=== PATIENT | male | born 1960 | race Caucasian/White ===

== ENCOUNTER 2016-08-25 21:40 | Observation (INO) | payer MEDICAID ==
[~2016-08-25] VITALS: Ht 167.6 cm; Wt 85.5 kg
[~2016-08-25 21:40] MED LIST: GLIP5 PO; LANTUSP SQ; NOVO7030P2 SQ; RANI150 PO
[2016-08-25 21:55] VITALS: BP 129/73; PULSE 74; RESP 18; TEMP 98.7; O2SAT 100
[2016-08-25] MEDS ORDERED: NOVOLOGP2 SQ (22:20)
[2016-08-25] MEDS ORDERED: PREV15CA15 PO (22:20)
[2016-08-25] MEDS ORDERED: ASPI-383 PO (22:20)
[2016-08-25] MEDS ORDERED: LANTUS2P SQ (22:20)
[2016-08-25] MEDS ORDERED: VENTAER INH (22:20)
[2016-08-25] MEDS ORDERED: DIAZ2 PO (22:20)
[2016-08-25] MEDS ORDERED: OXYC1TAB13 PO (22:20)
[2016-08-25] MEDS ORDERED: LIDOCAINE HCL 1% PF 30 ML VIAL INFIL ONE (22:45)
[2016-08-25] MEDS ORDERED: CLINDAMYCIN INJ 900 MG in SODIUM CHLORIDE 0.9% INJ 100 ML IV ONE (22:45)
--- NOTE | 2016-08-25 23:10 | RADRPT ---
EXAM DATE/TIME: 08/25/2016 22:47 [place] COMPARISON: No previous studies available for comparison. INDICATIONS : Left elbow pain from unknown injury. Possible infection. MEDICAL HISTORY : None. SURGICAL HISTORY : None. ENCOUNTER: Initial ACUITY: 1 day PAIN SCORE: 7/10 LOCATION: Left posterior elbow FINDINGS: No fracture or subluxation is seen of the left elbow. There is marked soft tissue swelling posteriorl y overlying male [place] on. No acute bone destruction demonstrated. No radiopaque foreign body seen.CO NCLUSION: Posterior soft tissue swelling, presumably olecranon bursitis. No acute bony abnormality. Aiden Pierre MD on August 25, 2016 at 23:08 Board Certified Radiologist. This report was verified electronically.
[2016-08-25 23:11] LABS: AUTOMATED NEUTROPHIL # 5.6 TH/MM3 (1.8-7.7); BASOPHIL # 0.1 TH/MM3 (0-0.2); BASOPHIL % 0.7 % (0.0-2.0); EOSINOPHIL # 0.1 TH/MM3 (0-0.4); EOSINOPHIL % 1.4 % (0.0-4.0); HEMATOCRIT 39.5 % (39.0-51.0); HEMO FLAGS DIFF FINAL; LYMPHOCYTE # 1.6 TH/MM3 (1.0-4.8); MEAN CELL VOLUME 98.2 FL (80.0-100.0); MEAN CORPUSCULAR HEMOGLOBIN 33.8 PG (27.0-34.0); MEAN CORPUSCULAR HGB CONC 34.5 % (32.0-36.0); MONO % 9.8 % (0.0-8.0); NEUT % 68.1 % (16.0-70.0); PLATELET COUNT 171 TH/MM3 (150-450); RED BLOOD COUNT 4.03 MIL/MM3 (4.50-5.90); RED CELL DISTRIBUTION WIDTH 11.9 % (11.6-17.2); WHITE BLOOD COUNT 8.2 TH/MM3 (4.0-11.0)
[2016-08-25 23:17] LABS: POTASSIUM 3.8 MEQ/L (3.5-5.1)
[2016-08-25 23:20] LABS: BICARBONATE 29.7 MEQ/L (21.0-32.0)
[2016-08-25 23:36] VITALS: BP 117/62; PULSE 72; RESP 16; O2SAT 100
[2016-08-26] VITALS (8 sets, daily range): BP systolic 107–130; BP diastolic 72–90; PULSE 54–72; RESP 16–20; TEMP 97.3–98.8; O2SAT 96–100
[2016-08-26] MEDS ORDERED: SODIUM CHLORIDE 0.9% FLUSH 10 ML FLUSH IVF PRN
[2016-08-26] MEDS ORDERED: VANCOMYCIN INJ 1,000 MG in SODIUM CHLOR 0.9% 250 ML INJ 250 ML IV ONE ×2
[2016-08-26] MEDS ORDERED: MAGNESIUM HYDROXIDE SUSP 30 ML CUP PO PRN (00:15)
[2016-08-26] MEDS ORDERED: SODIUM CHLORIDE 0.9% FLUSH 10 ML FLUSH IV FLUSH PRN (00:15)
[2016-08-26] MEDS ORDERED: ACETAMINOPHEN 325 MG TAB PO PRN (00:15)
[2016-08-26] MEDS ORDERED: NALOXONE HCL 0.4 MG/ML AMP IV PRN (00:15)
[2016-08-26] MEDS ORDERED: GLUCAGON 1 MG/ML VIAL OTHER PRN (00:15)
[2016-08-26] MEDS ORDERED: DEXTROSE 50% IN WATER 50 ML VIAL(D50) IV PRN (00:15)
[2016-08-26] MEDS ORDERED: BISACODYL 10 MG SUPP RECTAL PRN (00:15)
[2016-08-26] MEDS ORDERED: ONDANSETRON HCL 4 MG/2 ML VIAL IVP PRN (00:15)
[2016-08-26] MEDS: ENOXAPARIN SODIUM 40 MG/0.4 ML SYRINGE SQ SCH ×2 (01:46→23:19)
[2016-08-26] MEDS: ACETAMINOPHEN/HYDROcodone 325 MG/5 MG TAB PO PRN ×2 (03:00→15:19)
[2016-08-26] MEDS: INSULIN ASPART SUPPLEMENTAL SCALE SQ SCH ×4 (06:38→21:00)
[2016-08-26] MEDS: DOCUSATE SODIUM 50 MG/SENNA 8.6 MG TAB PO SCH ×2 (09:00→20:57)
[2016-08-26] MEDS ORDERED: SODIUM CHLORIDE 0.9% FLUSH 10 ML FLUSH IV FLUSH SCH (09:00)
[2016-08-26] MEDS: CLINDAMYCIN INJ 600 MG in SODIUM CHLORIDE 0.9% INJ 100 ML IV SCH ×3 (10:05→23:19)
[2016-08-26] MEDS: SODIUM CHLORIDE 0.9% FLUSH 10 ML FLUSH IV FLUSH SCH ×2 (10:05→21:07)
--- NOTE | 2016-08-26 11:57 | HHI.HP ---
[facility] [place] [facility] Primary Care Physician Non-Staff Admission Diagnosis L olecranon cellulitis; DM Diagnoses: (1) Cellulitis of left elbow Diagnosis: Principal Chief Complaint: Left elbow draining Travel History International Travel<30 Days: No Contact w/Intl Traveler <30 Da: No Traveled to Known Affected Are: No History of Present Illness Written by Arturo Hancock, acting as scribe for Dr. Chris on 08/26/16 at 11:48. 56 year-old male with known history of diabetes, coronary artery disease, COPD who presented to the hospital at the request of his sister because of left elbow redness and pain. Patient states that he don't know if he got poked with some thin, got bit by an insect bite on Tuesday he noticed his left elbow being edematous, red. He went to his primary medical doctor's office Dr. Hurley a [place] in which was Keflex. The patient only took 2 days with a Keflex. Patient then was able to express some fluid out of the elbow yesterday and because of those reasons his sister forced him to come to the emergency department for evaluation. The patient had workup done emergency department and x-ray indicated posterior soft tissue swelling presumably olecranon bursitis. Is recommended by the ER physician the patient be observed in the hospital for further evaluation management. Upon seeing the patient today, he indicated that he believed that he came to the hospital too soon because he did not feel that he was on antibiotics enough in order to do any good. He is feeling much better this time and wants to go home. He indicates his swelling has significantly improved. Indicating only had one episode of fever back on Tuesday, has not had any recurrent fever and has not been febrile since being in the hospital. . Review of Systems Constitutional: COMPLAINS OF: Fever, DENIES: Diaphoretic episodes, Fatigue, Weight gain, Weight loss, Chills, Dizziness, Change in appetite, Night Sweats Eyes: DENIES: Blurred vision, Diplopia, Eye inflammation, Eye pain, Vision loss , Double Vision Ears, nose, mouth, throat: DENIES: Hearing loss, Nasal discharge, Throat pain, Ear Pain, Running Nose, Sinus Pain Respiratory: DENIES: Apneas, Cough, Snoring, Wheezing, Hemoptysis, Sputum production, Shortness of breath Cardiovascular: DENIES: Chest pain, Palpitations, Syncope, Dyspnea on Exertion , Lower Extremity Edema, Orthopnea Gastrointestinal: DENIES: Abdominal pain, Black stools, Bloody stools, Constipation, Diarrhea, Nausea, Vomiting, Difficulty Swallowing, Anorexia Neurologic: DENIES: Abnormal gait, Headache, Localized weakness, Paresthesias, Seizures, Speech Problems, Tremor, Poor Balance Past Family Social History Past Medical History Diabetes Coronary artery disease Chronic affective pulmonary disease Chronic smoker Chronic back pain History of myocardial infarction Past Surgical History Umbilical hernia repair Cardiac catheterization with stenting 2 Reported Medications Reported Meds & Active Scripts Active Reported Prevacid (Lansoprazole) 15 Mg Capdr 15 Mg PO DAILY Bufferin 325 mg Tablet (Aspirin/Calcium Carbonate/Mag) 325 Mg Tablet 1 Tab PO DAILY Valium (Diazepam) 2 Mg Tab 2 Mg PO HS PRN Roxicodone (Oxycodone HCl) 5 Mg Tab 5 Mg PO Q4H PRN Ventolin Hfa 18 GM Inh (Albuterol Sulfate) 90 Mcg/Act Aer 2 Puff INH Q4-6H PRN Lantus Inj (Insulin Glargine) 1,000 Unit/10 Ml Vial 10 Units SQ HS Novolog Inj (Insulin Aspart) 1,000 Unit/10 Ml Vial 0 SQ DIRECTED Sliding Scale as directed. 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 Social History Patient continues smoke a pack a cigarettes a day since he was 12 years old. Denies any alcohol or illicit drugs Physical Exam Vital Signs Vital Signs Date Time Temp Pulse Resp B/P Pulse Ox O2 Delivery O2 Flow Rate FiO2 08/26/16 08:00 97.3 64 20 111/75 100 08/26/16 03:00 98.5 67 16 130/90 100 08/26/16 02:55 98.3 72 16 130/90 100 08/26/16 02:02 100 21 08/26/16 00:40 69 16 125/72 100 Room Air 08/26/16 00:40 71 16 08/25/16 23:36 72 16 117/62 100 Room Air 08/25/16 21:55 98.7 74 18 129/73 100 Physical Exam GENERAL: Well-developed, well-nourished, in no acute distress. alert and orientated HEENT: Head is normocephalic without any lesions or masses noted. Facial features are symmetric. Eyes: Pupils equal round reactive to light. Extraocular muscles are intact. Conjunctivae were clear. Oropharyngeal: Pharynx without any erythema edema. Tongue is midline without deviation. Buccal mucosa is moist without any masses or lesions NECK: Supple without any masses. Trachea midline no deviation. No JVD, no bruits are appreciated CARDIAC: Regular rhythm, regular rate. S1/S2 are heard. No murmurs gallops or rubs. LUNGS: Clear to auscultation bilaterally. No wheeze, rhonchi or rales. No use of accessory muscles on inspiration or expiration. ABDOMEN: Soft, nontender. Nondistended. Bowel sounds heard in all 4 quadrants. No organomegaly or masses. Negative rebound, negative guarding EXTREMITIES: No edema, pulses are equal bilaterally. No cyanosis or clubbing NEUROLOGY: Mood and affect appear appropriate. Cranial nerves II through XII grossly intact. Muscle strength 5/5 in upper and lower extremities bilaterally. Deep tendon reflexes are 2+ in upper and lower extremities bilaterally. LEFT ELBOW: Patient does have localized erythema noted around the olecranon bursa. There is active drainage at this time. No lymphadenopathy has been appreciated Laboratory Laboratory Tests Test 08/25/16 08/25/16 23:00 23:46 White Blood Count 8.2 Red Blood Count 4.03 Hemoglobin 13.6 Hematocrit 39.5 Mean Corpuscular Volume 98.2 Mean Corpuscular Hemoglobin 33.8 Mean Corpuscular Hemoglobin 34.5 Concent Red Cell Distribution Width 11.9 Platelet Count 171 Mean Platelet Volume 8.5 Neutrophils (%) (Auto) 68.1 Lymphocytes (%) (Auto) 20.0 Monocytes (%) (Auto) 9.8 Eosinophils (%) (Auto) 1.4 Basophils (%) (Auto) 0.7 Neutrophils # (Auto) 5.6 Lymphocytes # (Auto) 1.6 Monocytes # (Auto) 0.8 Eosinophils # (Auto) 0.1 Basophils # (Auto) 0.1 CBC Comment DIFF FINAL Differential Comment Sodium Level 134 Potassium Level 3.8 Chloride Level 97 Carbon Dioxide Level 29.7 Anion Gap 7 Blood Urea Nitrogen 17 Creatinine 0.78 Estimat Glomerular Filtration 104 Rate Random Glucose 303 Calcium Level 8.7 Lactic Acid Level 1.5 Date/Time Procedure Status Source Growth 08/25/16 23:15 Gram Stain - Final Resulted Wound Elbow 08/25/16 23:15 Wound Culture Resulted Wound Elbow Pending 08/25/16 23:05 Aerobic Blood Culture - Preliminary Resulted Blood Peripheral NO GROWTH IN 1 DAY 08/25/16 23:05 Anaerobic Blood Culture - Preliminary Resulted Blood Peripheral NO GROWTH IN 1 DAY Result Diagram: 08/25/16 2300 08/25/16 2300 Imaging Last Impressions Elbow X-Ray 08/25/16 0000 Signed Impressions: Service Date/Time: Tuesday, August 25, 2016 22:47 - CONCLUSION: Posterior soft tissue swelling, presumably olecranon bursitis. No acute bony abnormality. Aiden Pierre MD Assessment and Plan Assessment and Plan Left elbow cellulitis, possible olecranon bursitis, improved X-ray indicates soft tissue swelling possible olecranon bursitis Patient started on empirical antibiotics include vancomycin and clindamycin [place], morphine for pain --Consult Orthopedic for evaluation Diabetes Accu-Cheks with sliding scale insulin DVT prevention Lovenox This note was transcribed by shy Hancock. I, Dr. Amilcar North personally performed the history, physical exam, and medical decision making; and confirmed the accuracy of the information in the transcribed note. Authenticated by Dr. Amilcar North on 08/26/16 at 12:54. Code Status Full code Arturo Hancock Aug 26, 2016 11:57 Amilcar Pulido MD Aug 26, 2016 12:54 confirmed the accuracy of the information in the transcribed note. Authenticated by Dr. Amilcar North on 08/26/16 at 12:54. Code Status Full code Arturo Hancock Aug 26, 2016 11:57 Amilcar Pulido MD Aug 26, 2016 12:54
[2016-08-26] MEDS ORDERED: CLIN1CAP5 PO (12:37)
--- NOTE | 2016-08-26 12:41 | HHI.DCPOC ---
Discharge Care Plan Diagnosis: (1) Cellulitis of left elbow Goals to Promote Your Health * To prevent worsening of your condition and complications * To maintain your health at the optimal level Directions to Meet Your Goals Take your medications as prescribed Follow your dietary instruction Follow activity as directed Keep your appointments as scheduled Take your immunizations and boosters as scheduled If your symptoms worsen call your PCP, if no PCP go to Urgent Care Center or Emergency Room Smoking is Dangerous to Your Health. Avoid second hand smoke Call the 24-hour hour crisis hotline for domestic abuse at Arturo Hancock Aug 26, 2016 12:41
[2016-08-26] MEDS: MORPHINE SULFATE 4 MG/ML INJ IV PUSH PRN (22:01)
[2016-08-27] VITALS: BP 117/82; PULSE 60; RESP 18; TEMP 98.3; O2SAT 98
[2016-08-27] MEDS: MORPHINE SULFATE 4 MG/ML INJ IV PUSH PRN ×3 (02:15→19:53)
[2016-08-27 06:49] LABS: AUTOMATED NEUTROPHIL # 2.7 TH/MM3 (1.8-7.7); BASOPHIL # 0.1 TH/MM3 (0-0.2); BASOPHIL % 1.4 % (0.0-2.0); EOSINOPHIL # 0.2 TH/MM3 (0-0.4); EOSINOPHIL % 3.4 % (0.0-4.0); HEMATOCRIT 38.3 % (39.0-51.0); HEMO FLAGS DIFF FINAL; LYMPH % 33.9 % (9.0-44.0); LYMPHOCYTE # 1.8 TH/MM3 (1.0-4.8); MEAN CELL VOLUME 100.1 FL (80.0-100.0); MEAN CORPUSCULAR HEMOGLOBIN 34.5 PG (27.0-34.0); MEAN CORPUSCULAR HGB CONC 34.5 % (32.0-36.0); MONO % 10.5 % (0.0-8.0); NEUT % 50.8 % (16.0-70.0); PLATELET COUNT 162 TH/MM3 (150-450); RED BLOOD COUNT 3.83 MIL/MM3 (4.50-5.90); RED CELL DISTRIBUTION WIDTH 11.9 % (11.6-17.2); WHITE BLOOD COUNT 5.4 TH/MM3 (4.0-11.0)
[2016-08-27 06:56] LABS: POTASSIUM 4.1 MEQ/L (3.5-5.1)
[2016-08-27] MEDS: INSULIN ASPART SUPPLEMENTAL SCALE SQ SCH ×4 (07:00→21:00)
[2016-08-27 07:05] LABS: BICARBONATE 27.7 MEQ/L (21.0-32.0)
[2016-08-27 08:00] VITALS: BP 125/76; PULSE 54; RESP 18; TEMP 97.2; O2SAT 99
--- NOTE | 2016-08-27 08:16 | MB ---
cc: DEWEY BUCIO DATE OF CONSULTATION: 08/25/2016 DATE OF : 1960 CHIEF COMPLAINT Left elbow draining wound. HISTORY OF PRESENT ILLNESS This is a 56-year-old male who has a known history of diabetes, coronary artery disease, chronic obstructive pulmonary disease, hepatitis B, and hepatitis C who presented to the hospital today for redness and pain about the left elbow. The patient states he began having some pain and redness to the elbow approximately five or six days ago. The patient does [employer] work and has been outside recently where he thinks he could have been poked with a palm frond versus an insect bite. The patient did see his primary care physician and was placed on Keflex. The patient took approximately two days of this antibiotic and decided to have it addressed in the hospital due to the redness and drainage. The patient reports only having fever for one day and states the T-max was 102. The patient states he then became afebrile. The patient currently denies fever, chills, nausea, and vomiting. REVIEW OF SYSTEMS Negative x12 except for what is stated in the HPI. PAST MEDICAL HISTORY 1. Diabetes. 2. Coronary artery disease. 3. Chronic obstructive pulmonary disease. 4. Chronic back pain. 5. History of myocardial infarction. 6. Hepatitis B. 7. Hepatitis C. 8. Hiatal hernia. PAST SURGICAL HISTORY 1. Cataract surgery on both eyes. 2. Two cardiac stents. 3. Umbilical hernia repair. 4. Left ankle surgery. SOCIAL HISTORY Smoking one pack a day. The patient denies alcohol or illicit drug use. ACTIVE MEDICATIONS See nurse's notes. ALLERGIES SEROQUEL. PHYSICAL EXAMINATION VITAL SIGNS ARE FOLLOWS: Temperature 98.2, pulse 60, respirations 20, blood pressure 107/72, and pulse oximetry 99% on room air. GENERAL: The patient is a well-developed and well-nourished male in no acute distress. HEAD, EYES, EARS, NOSE AND THROAT: Head is normocephalic and atraumatic. Facial features are symmetric. Eyes are PERRLA with extraocular movements intact. Conjunctivae are clear. NECK: Neck is supple with midline trachea. CARDIAC: The patient has regular, rate and rhythm. The patient has 2+ radial and pedal pulses bilaterally. There is no lymphadenopathy about the bilateral upper and lower extremities. LUNGS: The patient has no use of accessory muscles with nonlabored breathing. The patient has symmetric chest wall rise. ABDOMEN: Abdomen is soft, nontender and nondistended. EXTREMITIES: The patient's bilateral lower extremities and right upper extremity show no deficits in range of motion and no tenderness to palpation. The patient does have some mildly restrictive range of motion of the left elbow. The patient has moderate erythema about the olecranon bursa with mild serosanguineous drainage. There is some mild soft tissue swelling about the elbow and forearm. NEUROLOGIC: The patient is alert and oriented x3 and cranial nerves are intact. LABORATORY DATA Labs taken on 08/25/2016: White blood cells are 8.2, hemoglobin is 13.6, hematocrit is 39.5, platelets are 171. Creatinine is 0.78, glucose is 303. The patient has a lactic acid of 1.5. The patient's wound culture taken on 08/25/2016 does show gram-positive cocci. IMAGING STUDIES X-rays of the left elbow AP and lateral views taken on 08/25/2016 reads as: Posterior soft tissue swelling presumably olecranon bursitis with no acute bony abnormality. I did review the above images and agree with the radiologist's interpretation. I do not see any bone destruction which would indicate osteomyelitis. I also do not see any findings of gas in the soft tissues which would be concerning. IMPRESSION Left elbow infected olecranon bursitis. MEDICAL DECISION-MAKING Based on the patient's current clinical course and physical exam, I do feel that this is something that can be managed outpatient. I have discussed this situation with Dr. Bucio and he has agreed to have the patient be placed on antibiotics and to have the patient followup in the office as an outpatient in one week. Depending upon the patient's response to his antibiotics, we will determine the plan of care moving forward. The patient does understand there is potential for a future surgery which would include irrigation and debridement of the elbow. My recommendation is for Infectious Disease to evaluate the patient and place the patient on appropriate antibiotics for home. In the meantime, the patient should keep the elbow clean and dry with daily dressing changes. The patient can use ice for swelling. The patient is currently on chronic pain medication for his chronic back pain which should also treat his current left elbow symptoms. I have reviewed the above impression and plan of care with Dr. Bucio and he agrees with this documentation. DICTATED BY: Carlton Swartz, NARCISO MD GEOFF Peter/RADHA /4:41 PM /8:18 AM
[2016-08-27] MEDS: DOCUSATE SODIUM 50 MG/SENNA 8.6 MG TAB PO SCH ×2 (09:00→19:53)
[2016-08-27] MEDS: SODIUM CHLORIDE 0.9% FLUSH 10 ML FLUSH IV FLUSH SCH ×2 (09:15→19:53)
[2016-08-27] MEDS: CLINDAMYCIN INJ 600 MG in SODIUM CHLORIDE 0.9% INJ 100 ML IV SCH (09:15)
[2016-08-27] MEDS: ACETAMINOPHEN/HYDROcodone 325 MG/5 MG TAB PO PRN ×2 (09:27→16:50)
[2016-08-27 12:00] VITALS: BP 115/73; PULSE 61; RESP 18; TEMP 97.6; O2SAT 98
--- NOTE | 2016-08-27 12:27 | HHI.PR ---
Subjective Remarks c/o some pain in left elbow states less tender and redness improving denies fevers/chills Sugars are very elevated denies cp/sob Objective Vitals Vital Signs Date Time Temp Pulse Resp B/P Pulse Ox O2 Delivery O2 Flow Rate FiO2 08/27/16 08:00 97.2 54 18 125/76 99 08/27/16 00:00 98.3 60 18 117/82 98 08/26/16 20:00 98.8 60 18 114/76 96 08/26/16 16:37 18 08/26/16 16:00 98.2 60 20 107/72 99 I/O 08/26/16 08/26/16 08/26/16 08/27/16 08/27/16 08/27/16 07:00 15:00 23:00 07:00 15:00 23:00 Intake Total 480 ml 690 ml 240 ml 240 ml Output Total 350 ml 400 ml Balance 130 ml 690 ml -160 ml 240 ml Intake Oral 480 ml 690 ml 240 ml 240 ml Output Urine Total 350 ml 400 ml # Voids 1 4 4 3 # Bowel Movements 0 1 0 2 Result Diagram: 08/27/16 0512 08/27/16 0512 Imaging Last Impressions Elbow X-Ray 08/25/16 0000 Signed Impressions: Service Date/Time: Thursday, August 25, 2016 22:47 - CONCLUSION: Posterior soft tissue swelling, presumably olecranon bursitis. No acute bony abnormality. Aiden Pierre MD Objective Remarks GENERAL: Well-nourished, well-developed patient. SKIN: Warm and dry. HEAD: Normocephalic. EYES: No scleral icterus. No injection or drainage. NECK: Supple, trachea midline. No JVD or lymphadenopathy. CARDIOVASCULAR: Regular rate and rhythm without murmurs, gallops, or rubs. RESPIRATORY: Breath sounds equal bilaterally. No accessory muscle use. GASTROINTESTINAL: Abdomen soft, non-tender, nondistended. EXTREMITIES: No cyanosis, or edema. NEUROLOGICAL: Awake, alert, and oriented x 3. Non-focal. LEFT ELBOW: Patient does have localized erythema noted around the olecranon bursa. There is active drainage at this time of yellowish purulent fluid and some fluctuance on palpation. No lymphadenopathy has been appreciated Procedures None Medications and IVs Current Medications Medications (Trade) Dose Ordered Sig/Kayla Route Start Time Stop Time Status Last Admin (D50w (Vial) Inj) 50 ml UNSCH PRN IV 08/26/16 00:15 (Glucagon Inj) 1 mg UNSCH PRN OTHER 08/26/16 00:15 (NS Flush) 2 ml UNSCH PRN IV FLUSH 08/26/16 00:15 (NS Flush) 2 ml BID IV FLUSH 08/26/16 09:00 08/27/16 09:15 (Tylenol) 650 mg Q4H PRN PO 08/26/16 00:15 (Zofran Inj) 4 mg Q6H PRN IVP 08/26/16 00:15 (Narcan Inj) 0.4 mg UNSCH PRN IV 08/26/16 00:15 (Tyra-Colace) 1 tab BID PO 08/26/16 09:00 (Milk Of Magnesia Liq) 30 ml Q12H PRN PO 08/26/16 00:15 (Dulcolax Supp) 10 mg DAILY PRN RECTAL 08/26/16 00:15 Enoxaparin Sodium 40 mg 40 mg Q24H SQ 08/26/16 00:15 08/26/16 23:19 (Cleocin Inj/NS Inj) 104 ml @ 208 mls/hr Q8H IV 08/26/16 08:00 08/27/16 09:15 ([place] 5-325 Mg) 1 tab Q4H PRN PO 08/26/16 03:00 08/27/16 09:27 (Morphine Inj) 2 mg Q4HR PRN IV PUSH 08/26/16 03:00 08/27/16 02:15 Urinary Catheter: No Vascular Central Line Catheter: No A/P Problem List: (1) Infection of left olecranon bursa ICD Code: M70.22 Status: Acute Plan: The patient was admitted to the medical floor Infected left arm bursitis is slightly improved today. X-ray of the left elbow showed soft tissue swelling Orthopedic surgery consulted, Dr. Ruiz recommended ID consultation for recommendations on oral antibiotics for the patient to go home with and to follow-up as an outpatient. No I&D or drainage recommended for now. ID consultation pending The patient currently on IV clindamycin Discontinue IV clindamycin and start on IV vancomycin Wound culture is growing Staphylococcus aureus Blood cultures negative 2 days. I discussed the case over the phone with Dr. Francois who will see the patient later. Patient at this time cannot be discharge on any oral antibiotics until we have sensitivities back. (2) Diabetes mellitus with hyperglycemia ICD Code: E11.65 Status: Acute Plan: I will place the patient on insulin Levemir. Blood sugar still very elevated and uncontrolled in the 200s. Continue SSI with insulin NovoLog and continue to monitor Accu-Cheks. Check hemoglobin A1c. (3) Coronary artery disease ICD Code: I25.10 Status: Chronic Plan: Patient denies chest pain. Continue to hold aspirin for now and to the possibility of drainage is totally excluded. (4) COPD (chronic obstructive pulmonary disease) ICD Code: J44.9 Status: Chronic Plan: OPD seems stable. The patient is on albuterol inhaler home. I will also start the patient and inhaled steroid. Assessment and Plan GI prophylaxis: Add PPI. DVT prophylaxis: SCDs, on Lovenox subcutaneously, continue. Discharge Planning Continue to monitor in the medical floor. ID consult pending. Problem Qualifiers (1) Diabetes mellitus with hyperglycemia: Qualified Code: E11.65 - Type 2 diabetes mellitus with hyperglycemia, with long -term current use of insulin (2) Coronary artery disease: Qualified Code: I25.10 - Coronary artery disease involving [place] coronary artery of [place] heart without angina pectoris (3) COPD (chronic obstructive pulmonary disease): Qualified Code: J44.9 - Chronic obstructive pulmonary disease, unspecified COPD type Amilcar Pulido MD Aug 27, 2016 12:27
[2016-08-27] MEDS ORDERED: ALBUTEROL SULFATE 90 MCG/ACT HFA 8 GM INHALER INH PRN (12:30)
[2016-08-27] MEDS: INSULIN DETEMIR 100 UNITS/ML VIAL SQ SCH ×2 (13:00→21:00)
[2016-08-27] MEDS: VANCOMYCIN INJ 1,000 MG in SODIUM CHLOR 0.9% 250 ML INJ 250 ML IV SCH (13:52)
[2016-08-27] MEDS: PANTOPRAZOLE SOD 20 MG DELAYED RELEASE TAB PO SCH (13:52)
--- NOTE | 2016-08-27 14:30 | PD.CONS ---
History of Present Illness Service Infectious disease Consult Requested By Dr Ebenezer Ruiz Reason for Consult Evaluate patient with infected olecranon bursa advised on Abx Primary Care Physician Non-Staff Diagnoses: History of Present Illness Patient seen and examined. Records reviewed. Patient is a 56-year-old male, presented to the hospital for further evaluation of redness and swelling in his left elbow. His problems started about 4 days ago when he noted the redness and pain in his left elbow. He thought he might have had some kind of an insect bite. He poked it and he tried to drain it with his insulin needle. It was not improving and he went to see his primary care physician who put him on some Keflex. He apparently only took 2 days of Keflex, and his sister insisted that he go to the hospital for further evaluation and treatment. Patient had an episode of fever about 2 days prior to admission. Since admission he has not been febrile. His WBC is normal. X- ray of the elbow is showing some swelling posteriorly, possibly a lack from bursitis. Culture of the drainage from his left elbow is growing staph aureus, preliminary, final ID and susceptibility testing still pending. Orthopedic had seen the patient and requested this infectious disease consultation. There is no surgical plan that I could see in his records currently. Infectious disease consultation requested to make recommendation on antibiotics. Review of Systems Constitutional: COMPLAINS OF: Fever, Chills Eyes: DENIES: Eye pain Ears, nose, mouth, throat: DENIES: Oral lesions, Throat pain, Ear Pain, Sinus Pain, Toothache Respiratory: DENIES: Cough, Shortness of breath Cardiovascular: DENIES: Chest pain, Palpitations Gastrointestinal: DENIES: Abdominal pain, Diarrhea, Nausea, Vomiting, Difficulty Swallowing Genitourinary: DENIES: Hematuria, Dysuria Musculoskeletal: COMPLAINS OF: Joint pain, Joint Swelling Integumentary: DENIES: Rash Neurologic: DENIES: Headache, Localized weakness, Seizures Psychiatric: DENIES: Anxiety, Hallucinations Past Family Social History Allergies: Coded Allergies: Seroquel (Verified Allergy, Unknown, 08/25/16) *MDRO Multi-Drug Resistant Organism (Verified Adverse Reaction, Unknown, ) 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 Past Medical History Diabetes Coronary artery disease Chronic affective pulmonary disease Chronic smoker Chronic back pain History of myocardial infarction Liver cirrhosis Hep C Past Surgical History Umbilical hernia repair Cardiac catheterization with stenting 2 Hiatal hernia Active Ordered Medications Tylenol [place] Albuterol Dulcolax Lovenox Insulin MOM Morphine Zofran Protonix Tyra-Colace Vancomycin Family History Significant for heart disease, otherwise noncontributory to the current ID problems Social History Patient continues smoke a pack a cigarettes a day since he was 12 years old. Ex ETOH abuse Denies illicit drugs Works in construction Physical Exam Vital Signs Vital Signs Date Time Temp Pulse Resp B/P Pulse Ox O2 Delivery O2 Flow Rate FiO2 08/27/16 12:00 97.6 61 18 115/73 98 08/27/16 08:00 97.2 54 18 125/76 99 08/27/16 00:00 98.3 60 18 117/82 98 08/26/16 20:00 98.8 60 18 114/76 96 08/26/16 16:37 18 08/26/16 16:00 98.2 60 20 107/72 99 Physical Exam GENERAL: Patient is a well-nourished, well-developed CM, awake and alert, not in respiratory distress. SKIN: Warm and dry. No generalized rash, no ecchymoses and no evidence of embolic lesions. HEAD: Atraumatic. Normocephalic. No temporal wasting, or tenderness. EYES: [place] conjunctiva. No petechia or hemorrhage. Pupils equal, round and reactive to light. Extraocular movements full and intact. No scleral icterus. No injection or drainage. EARS, NOSE AND THROAT: Nose without bleeding or purulent nasal discharge. No sinus tenderness. Mucous membranes pink and moist. No oral lesions noted. No exudate. No oral thrush. NECK: Trachea midline. Supple and not tender, no meningeal signs CARDIOVASCULAR: Regular rate and rhythm. No murmurs, rubs or gallops heard RESPIRATORY: Clear to auscultation. Breath sounds equal bilaterally. No rales , wheezing or rhonchi ABDOMEN: Soft, non-tender, nondistended. Bowel sounds present and normoactive. No guarding. No rebound. No organomegaly. EXTREMITIES: No clubbing, cyanosis, or edema in BLE. BLE has good ROM. No calf tenderness. Well perfused and warm. RUE unremarkable. LUE - he has fluid in the L olecranon bursa, with erythema on the skin, has 3 areas that is draining cloudy pink fluid, and on squeezing has small amount of grossly purulent fluid. Good ROM at L elbow joint, no evidence of septic joint NEUROLOGICAL: Awake and alert. Cranial nerves grossly intact. Motor grossly within normal limits. PSYCHIATRIC: Normal affect, calm and cooperative. LINE: No evidence of infection Laboratory Laboratory Tests Test 08/27/16 05:12 White Blood Count 5.4 Red Blood Count 3.83 Hemoglobin 13.2 Hematocrit 38.3 Mean Corpuscular Volume 100.1 Mean Corpuscular Hemoglobin 34.5 Mean Corpuscular Hemoglobin 34.5 Concent Red Cell Distribution Width 11.9 Platelet Count 162 Mean Platelet Volume 9.6 Neutrophils (%) (Auto) 50.8 Lymphocytes (%) (Auto) 33.9 Monocytes (%) (Auto) 10.5 Eosinophils (%) (Auto) 3.4 Basophils (%) (Auto) 1.4 Neutrophils # (Auto) 2.7 Lymphocytes # (Auto) 1.8 Monocytes # (Auto) 0.6 Eosinophils # (Auto) 0.2 Basophils # (Auto) 0.1 CBC Comment DIFF FINAL Differential Comment Sodium Level 135 Potassium Level 4.1 Chloride Level 99 Carbon Dioxide Level 27.7 Anion Gap 8 Blood Urea Nitrogen 12 Creatinine 0.65 Estimat Glomerular Filtration 128 Rate Random Glucose 252 Calcium Level 8.7 Date/Time Procedure Status Source Growth 08/25/16 23:15 Gram Stain - Final Resulted Wound Elbow 08/25/16 23:15 Wound Culture - Preliminary Resulted Staphylococcus Aureus 08/25/16 23:05 Aerobic Blood Culture - Preliminary Resulted Blood Peripheral NO GROWTH IN 2 DAYS 08/25/16 23:05 Anaerobic Blood Culture - Preliminary Resulted Blood Peripheral NO GROWTH IN 2 DAYS Result Diagram: 08/27/16 0512 08/27/16 0512 Imaging RADIOLOGY STUDIES/FILMS REVIEWED Elbow X-Ray 08/25/16 0000 Signed Impressions: Service Date/Time: Thursday, August 25, 2016 22:47 - CONCLUSION: Posterior soft tissue swelling, presumably olecranon bursitis. No acute bony abnormality. Aiden Pierre MD Assessment and Plan Assessment and Plan IMPRESSION Septic L olecranon bursitis, C/S with Staph aurues, has small arae of drainage , still witha lot of fluid in the bursa Cellulitis L elbow, no evidence of septic joint Known DM Hx MRSA 2004 Liver cirrhosis, hep C, previous heavy ETOH RECOMMENDATION Ortho following Likely benefit from draining fluid, quicker recovery, since it already has a small opening If better drainage, can be D/C on oral Abx Cultures should be available this weekend and decide on oral Abx - plan 14 days Abx on D/C Thank you for this consultation Discussed Condition With Explained plan to patient D/W Jacqui Worthington PA-C, MD Aug 27, 2016 14:30
[2016-08-27 16:00] VITALS: BP 111/71; PULSE 51; RESP 18; TEMP 97.3; O2SAT 100
[2016-08-27 20:21] VITALS: BP 104/70; PULSE 60; RESP 16; TEMP 96.7; O2SAT 100
[2016-08-28] MEDS: ENOXAPARIN SODIUM 40 MG/0.4 ML SYRINGE SQ SCH (00:23)
[2016-08-28 00:24] VITALS: BP 134/75; PULSE 63; RESP 18; TEMP 97.7; O2SAT 100
[2016-08-28] MEDS: ACETAMINOPHEN/HYDROcodone 325 MG/5 MG TAB PO PRN ×3 (00:24→09:11)
[2016-08-28] MEDS: VANCOMYCIN INJ 1,000 MG in SODIUM CHLOR 0.9% 250 ML INJ 250 ML IV SCH (00:24)
[2016-08-28 08:00] VITALS: BP 97/65; PULSE 56; RESP 19; TEMP 97.8; O2SAT 97
--- NOTE | 2016-08-28 08:10 | PD.PN.STU ---
Subjective Remarks Patient has no acute complaints. He states that his elbow feels and looks much better and is no longer draining. He feels like he is ready to go home. Objective Vitals Vital Signs Date Time Temp Pulse Resp B/P Pulse Ox O2 Delivery O2 Flow Rate FiO2 08/28/16 04:45 08/28/16 00:24 97.7 63 18 134/75 100 08/27/16 20:21 96.7 60 16 104/70 100 08/27/16 16:00 97.3 51 18 111/71 100 08/27/16 12:00 97.6 61 18 115/73 98 I/O 08/27/16 08/27/16 08/27/16 08/28/16 08/28/16 08/28/16 07:00 15:00 23:00 07:00 15:00 23:00 Intake Total 240 ml 630 ml 350 ml Balance 240 ml 630 ml 350 ml Intake Oral 240 ml 630 ml IV Total 350 ml # Voids 3 3 5 # Bowel Movements 2 0 Result Diagram: 08/27/1651108/27/16511 Objective Remarks GENERAL: In no acute distress, well-nourished. SKIN: Warm and dry. HEAD: Normocephalic. Crusted 1-2cm lesions on the top of his scalp EYES: No scleral icterus. No injection or drainage. NECK: Supple, trachea midline. No JVD or lymphadenopathy. CARDIOVASCULAR: Regular rate and rhythm without murmurs, gallops, or rubs. RESPIRATORY: Breath sounds equal bilaterally. No accessory muscle use. GASTROINTESTINAL: Abdomen soft, non-tender, nondistended. MUSCULOSKELETAL: No cyanosis, or edema. A/P Assessment and Plan 1. Left olecranon bursitis - Infected left arm bursitis is slightly improved today. - X-ray of the left elbow showed soft tissue swelling - Orthopedic surgery consulted, Dr. Ruiz recommended ID consultation for recommendations on oral antibiotics for the patient to go home with and to follow-up as an outpatient. No I&D or drainage recommended for now. - The patient was on IV clindamycin, changed to IV vancomycin. Patient has removed his IV. - Wound culture is growing Staphylococcus aureus - Blood cultures negative 2 days. - Sensitivities are still pending for oral antibiotic use. 2. Type 2 Diabetes - I will place the patient on insulin Levemir - Blood sugar still very elevated and uncontrolled in the 200s. - Continue SSI with insulin NovoLog and continue to monitor Accu-Cheks. 3. Coronary Artery Disease - Patient denies chest pain. 4. COPD - currently stable - He is on an albuterol inhaler home - He was started on an inhaled steroid. 5. Scalp lesions - potentially squamous or basal cell cancer - lesions are 1-2cm, round and crusted - He has not been evaluated by a physician, refer to outpatient dermatology Lucy Estrada M3 Aug 28, 2016 08:10
[2016-08-28] MEDS: SODIUM CHLORIDE 0.9% FLUSH 10 ML FLUSH IV FLUSH SCH (09:00)
[2016-08-28] MEDS: INSULIN DETEMIR 100 UNITS/ML VIAL SQ SCH (09:00)
[2016-08-28] MEDS: DOCUSATE SODIUM 50 MG/SENNA 8.6 MG TAB PO SCH (09:00)
[2016-08-28] MEDS: PANTOPRAZOLE SOD 20 MG DELAYED RELEASE TAB PO SCH (09:10)
[2016-08-28 10:11] VITALS: RESP 20
[2016-08-28] MEDS ORDERED: CLIN1CAP5 PO (10:54)
[2016-08-28] MEDS ORDERED: INSU1MIS15 (11:00)
[2016-08-28] MEDS ORDERED: GLUCKIT15 (11:00)
[2016-08-28] MEDS ORDERED: LEVEMIR SQ (11:00)
[2016-08-28] MEDS ORDERED: GLUCTES12 (11:00)
[2016-08-28] MEDS ORDERED: LANCETS1 MI1 (11:00)
[2016-08-28] MEDS ORDERED: BIOM30MI (11:00)
[2016-08-28] MEDS ORDERED: NOVOLOGP2 SQ (11:00)
--- NOTE | 2016-08-28 11:08 | HHI.DS ---
Discharge Summary Admission Date Aug 26, 2016 at 00:00 Discharge Date: Aug 28, 2016 Admitting Diagnosis L olecranon cellulitis; DM (1) Infection of left olecranon bursa ICD Code: M70.22 Diagnosis: Principal (2) Diabetes mellitus with hyperglycemia ICD Code: E11.65 Diagnosis: Principal (3) Coronary artery disease ICD Code: I25.10 Diagnosis: Principal (4) COPD (chronic obstructive pulmonary disease) ICD Code: J44.9 Diagnosis: Principal Procedures None Brief History - From Admission 56 year-old male with known history of diabetes, coronary artery disease, COPD who presented to the hospital at the request of his sister because of left elbow redness and pain. Patient states that he don't know if he got poked with some thin, got bit by an insect bite on Tuesday he noticed his left elbow being edematous, red. He went to his primary medical doctor's office Dr. Mei Mccormick Covel in which was Keflex. The patient only took 2 days with a Keflex. Patient then was able to express some fluid out of the elbow yesterday and because of those reasons his sister forced him to come to the emergency department for evaluation. The patient had workup done emergency department and x-ray indicated posterior soft tissue swelling presumably olecranon bursitis. Is recommended by the ER physician the patient be observed in the hospital for further evaluation management. Upon seeing the patient today, he indicated that he believed that he came to the hospital too soon because he did not feel that he was on antibiotics enough in order to do any good. He is feeling much better this time and wants to go home. He indicates his swelling has significantly improved. Indicating only had one episode of fever back on Tuesday, has not had any recurrent fever and has not been febrile since being in the hospital. . CBC/BMP: 08/27/16 0512 08/27/16 0512 Significant Findings Laboratory Tests Test 08/25/16 08/27/16 23:00 05:12 Red Blood Count 4.03 MIL/MM3 3.83 MIL/MM3 (4.50-5.90) (4.50-5.90) Monocytes (%) (Auto) 9.8 % (0.0-8.0) 10.5 % (0.0-8.0) Sodium Level 134 MEQ/L 135 MEQ/L (136-145) (136-145) Chloride Level 97 MEQ/L (98-107) Random Glucose 303 MG/DL 252 MG/DL (74-106) (74-106) Hematocrit 38.3 % (39.0-51.0) Mean Corpuscular Volume 100.1 FL (80.0-100.0) Mean Corpuscular Hemoglobin 34.5 PG (27.0-34.0) Imaging Last Impressions Elbow X-Ray 08/25/16 0000 Signed Impressions: Service Date/Time: Thursday, August 25, 2016 22:47 - CONCLUSION: Posterior soft tissue swelling, presumably olecranon bursitis. No acute bony abnormality. Aiden Pierre MD PE at Discharge GENERAL: Well-nourished, well-developed patient. SKIN: Warm and dry. HEAD: Normocephalic. EYES: No scleral icterus. No injection or drainage. NECK: Supple, trachea midline. No JVD or lymphadenopathy. CARDIOVASCULAR: Regular rate and rhythm without murmurs, gallops, or rubs. RESPIRATORY: Breath sounds equal bilaterally. No accessory muscle use. GASTROINTESTINAL: Abdomen soft, non-tender, nondistended. EXTREMITIES: No cyanosis, or edema. NEUROLOGICAL: Awake, alert, and oriented x 3. Non-focal. LEFT ELBOW: Patient does have localized erythema noted around the olecranon bursa. There is active drainage at this time of yellowish purulent fluid and some fluctuance on palpation. No lymphadenopathy has been appreciated Hospital Course (1) Infection of left olecranon bursa The patient was admitted to the medical floor. Infection treated with IV clindamycin initially. X-ray of the left elbow showed soft tissue swelling Orthopedic surgery consulted, Dr. Ruiz recommended ID consultation for recommendations on oral antibiotics for the patient to go home with and to follow-up as an outpatient. No I&D or drainage recommended for now as per orthopedic surgery. IV clindamycin was discontinued and the patient was placed on IV vancomycin after wound cultures are growing Staphylococcus aureus. Blood cultures The patient currently on IV clindamycin Discontinue IV clindamycin and start on IV vancomycin Wound culture is growing Staphylococcus aureus Blood cultures negative 2 days. Patient grew MSSA on one culture sensitive to clindamycin. I will discharge the patient on 14 days of oral clindamycin (2) Diabetes mellitus with hyperglycemia Patient placed on insulin Levemir and SSI with insulin NovoLog. Blood sugar 3 uncontrolled in the 200s during hospital stay. Accu-Cheks monitored (3) Coronary artery disease Patient denies chest pain. Continue to hold aspirin for now and to the possibility of drainage is totally excluded. (4) COPD (chronic obstructive pulmonary disease) Remained stable during hospitalization. Home albuterol was continued. I will start patient on inhaled steroids upon discharge. GI prophylaxis: Add PPI. DVT prophylaxis: SCDs, on Lovenox subcutaneously, continue. Pt Condition on Discharge: Stable Discharge Disposition: Discharge Home Discharge Time: > 30 minutes Discharge Instructions Follow up Referrals: Orthopedics with Brock Deleon MD PCP Follow-up - 1 Week New Medications: Blood Glucose Monitoring W/Device (Glucocom Blood Glucose Mo W/Device) 1 Kit Kit 1 KIT .ROUTE DIRECTED Blood Sugar Management #1 KIT Clindamycin (Clindamycin) 150 Mg Cap 450 MG PO Q6H Infection #56 Ref 0 CAP Glucocom Test Strips (Glucocom Test Strips) 1 Capri Capri 1 EA .ROUTE DIRECTED Blood Sugar Management #1 BOX Hydrocodone-Acetaminophen (Hydrocodone-Acetaminophen) 5-300 Mg Tab 1 TAB PO Q4H PRN PAIN #20 Ref 0 TAB Insulin Aspart Inj (Novolog Inj) 1,000 Unit/10 Ml Vial 2-12 UNITS SQ ACHS Max dose at bedtime ( ) units; sugars less than 70,(0) units ; sugars 150-199,(2) units; sugars 200-249,(4) units; sugars 250-299,(7) units; sugars 300-349,(10) units; sugars greater than 349,(12)units Blood Sugar Management #10 Ref 0 ML Insulin Detemir Inj (Levemir Inj) 1,000 unit/ 10 ML Vial 10 UNITS SQ BID Do not mix with any other Insulin. Blood Sugar Management #1 Ref 0 VIAL Insulin Syringe/U-100/31G X 5/16" 1 ml (Insulin Syringe/U-100/31G X 5/16" 1 ml) 1 Mis Mis 1 EA .ROUTE DIRECTED Blood Sugar Management #1 Ref 0 BOX Lancets (Lancets) 1 Mis Mis 1 EA .ROUTE DIRECTED Blood Sugar Management #1 Ref 0 BOX Parenteral Therapy Supplies (Sharpsafety Sharps Contai) 1 Mis Mis 1 EA .ROUTE DIRECTED #1 Ref 0 EA Salmeterol Inh (Serevent Diskus Inh) 50 Mcg/Act Aero 50 MCG INH BID copd #1 Ref 0 INHALER Continued Medications: Albuterol 18 GM Inh (Ventolin Hfa 18 GM Inh) 90 Mcg/Act Aer 2 PUFF INH Q4-6H PRN SHORTNESS OF BREATH #1 Ref 0 INHALER Aspirin/Calcium Carbonate/Mag (Bufferin 325 mg Tablet) 325 Mg Tablet 1 TAB PO DAILY Diazepam (Valium) 2 Mg Tab 2 MG PO HS PRN INSOMNIA Ref 0 TAB Lansoprazole (Prevacid) 15 Mg Capdr 15 MG PO DAILY Ref 0 CAP Oxycodone (Roxicodone) 5 Mg Tab 5 MG PO Q4H PRN PAIN Ref 0 TAB Discontinued Medications: Insulin Aspart Inj (Novolog Inj) 1,000 Unit/10 Ml Vial 0 SQ DIRECTED Sliding Scale as directed. Blood Sugar Management #10 Ref 0 ML Insulin Glargine Inj (Lantus Inj) 1,000 Unit/10 Ml Vial 10 UNITS SQ HS Blood Sugar Management Ref 0 VIAL Amilcar Pulido MD Aug 28, 2016 11:[address] Amilcar North on 08/26/16 at 11:48 Amilcar Pulido MD Aug 28, 2016 11:08
[2016-08-28] MEDS ORDERED: SALM50I INH (11:10)
[2016-08-28] MEDS ORDERED: HYDR-4107 PO (11:58)
--- NOTE | 2016-09-09 16:54 | PD ---
HPI Chief Complaint: Skin Problem Time Seen by Provider: 22:32 Travel History International Travel<30 days: No Contact w/Intl Traveler<30days: No Traveled to known affect area: No History of Present Illness HPI 56 year old male with worsening pain and swelling of the left elbow for four days. Patient denies fever or chills. Patient is a diabetic. Patient tried to drain the site by poking it with an insulin needle at home. Patient rates his pain 8/10. Patient notes increased pain with movement and palpation. Patient thought it was from a bug bite. He has taken two days of Keflex prescribed by his PCP without improvement. PFSH Past Medical History Narrative Medical asthma, CAD with stent x 2, DM, HTN, hepatitis; herniorrhaphy; positive tobacco use; nursing notes reviewed Asthma: Yes Blood Disorders: No (UNABLE TO OBTAIN HISTORY PATIENT SEDATED) Anxiety: Yes Depression: Yes Cancer: No Cardiac Catheterization: Yes Chemotherapy: No COPD: Yes Diabetes: Yes Patient Takes Glucophage: No Diminished Hearing: Yes Gastrointestinal Disorders: No (UNABLE TO OBTAIN HISTORY PATIENT SEDATED) Genitourinary: No (UNABLE TO OBTAIN HISTORY PATIENT SEDATED) Hepatitis: Yes (C) Hypertension: Yes Immune Disorder: No (UNABLE TO OBTAIN HISTORY PATIENT SEDATED) Musculoskeletal: Yes (Chronic back pain ) Psychiatric: Yes Reproductive: No Respiratory: Yes (COPD) Myocardial Infarction: Yes Radiation Therapy: No Seizures: Yes Ulcer: Yes Tetanus Vaccination: > 5 Years Influenza Vaccination: No PNEUMOCCOCAL Vaccine (Year): 3 ?: Not Past Surgical History Abdominal Surgery: Yes (Umb. 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 Reported Meds & Prescriptions Reported Meds & Active Scripts Active Reported Prevacid (Lansoprazole) 15 Mg Capdr 15 Mg PO DAILY Bufferin 325 mg Tablet (Aspirin/Calcium Carbonate/Mag) 325 Mg Tablet 1 Tab PO DAILY Valium (Diazepam) 2 Mg Tab 2 Mg PO HS PRN Roxicodone (Oxycodone HCl) 5 Mg Tab 5 Mg PO Q4H PRN Ventolin Hfa 18 GM Inh (Albuterol Sulfate) 90 Mcg/Act Aer 2 Puff INH Q4-6H PRN Review of Systems Except as stated in HPI: all other systems reviewed are Neg General / Constitutional: Positive: Chills, No: Fever HENT: No: Congestion Cardiovascular: No: Chest Pain or Discomfort Respiratory: No: Shortness of Breath Gastrointestinal: No: Nausea, Vomiting Genitourinary: No: Dysuria, Decreased Urinary Output Musculoskeletal: Positive: Limited ROM, Edema, Pain (elbow) Physical Exam Narrative GENERAL: Well developed well nourished male in no acute distress SKIN: Warm and dry. HEAD: Normocephalic. EYES: No scleral icterus. No injection or drainage. NECK: Supple, trachea midline. No JVD or lymphadenopathy. CARDIOVASCULAR: Regular rate and rhythm without murmurs, gallops, or rubs. RESPIRATORY: Breath sounds equal bilaterally. No accessory muscle use. GASTROINTESTINAL: Abdomen soft, non-tender, nondistended. MUSCULOSKELETAL: No cyanosis, or edema. Left elbow edema, erythema tenderness spontaneous drainage, decreased ROM due to swelling over olecranon bursa no joint pain; distally neurovascularly intact. BACK: Nontender without obvious deformity. No CVA tenderness. Data Data Orders Basic Metabolic Panel (Bmp) (08/25/16 22:32) Complete Blood Count With Diff (08/25/16 22:32) Blood Culture (08/25/16 22:32) Wound Culture And Gram Stain (08/25/16 22:32) Iv Access Insert/Monitor (08/25/16 22:32) Wound Care (08/25/16 22:32) Clindamycin Inj (Cleocin Inj) (08/25/16 22:45) Blood Glucose (08/25/16 22:32) Lidocaine Pf 1% Inj (Xylocaine-Mpf 1% In (08/25/16 22:45) Elbow, Limited (Ap&Lat) (08/25/16 ) Lactic Acid (08/25/16 23:33) Admit Order (Ed Use Only) (08/25/16 ) ^ Saline Lock (08/25/16 23:58) Resp Oxygen Manoj C Titrat 1-4 L (08/25/16 ) Notify Dr: Other (08/25/16 23:58) Sodium Chloride 0.9% Flush (Ns Flush) (08/26/16 09:00) Sodium Chloride 0.9% Flush (Ns Flush) (08/26/16 00:00) Vancomycin Inj (Vancomycin Inj) (08/26/16 00:00) MDM Medical Decision Making Medical Screen Exam Complete: Yes Emergency Medical Condition: Yes Medical Record Reviewed: Yes Interpretation(s) L elbow xr: no retained radiopaque FB, no effusion, positive soft tissue swelling CBC: grossly wnl metabolic panel: hyperglycemia, 303 lactic acid: 1.5, not elevated Differential Diagnosis cellulitis, abscess, septic joint, dm Narrative Course IV access obtained specimens collected including blood cultures, wound culture , and lactic acid, imaging ordered; patient administered antibiotics IV imaging no retained radiopaque FB, no effusion, positive soft tissue swelling Plan for bedside I&D and after informed verbal consent site was properly prepped and draped with betadine; 1% lidocaine plain 2 ml for local anesthesia injected, 20 G needle aspirate attempted without collection of fluid; therefore , bedside US performed by ia with linear probe identified cobble-stoning c/w cellulitis no fluid collection for I&D; I&D deferred. Patient discussed with [facility] for admission for IV antibiotics and possible debridement by orthopedist Physician Communication Physician Communication discussed with [facility] Diagnosis Primary Impression: Cellulitis of left elbow Additional Impression: Diabetes Admitting Information Admitting Physician Requests: Observation Patient Instructions: Cellulitis (DC), How to Check Your Blood Sugar (DC), How to Give an Insulin Injection (DC) Scripts Hydrocodone-Acetaminophen 5-300 Mg Tab1 Tab PO Q4H PRN (PAIN) #20 TAB Ref 0 Prov:Amilcar Pulido MD 08/28/16 Salmeterol Inh (Serevent Diskus Inh)50 Mcg/Act Aero50 Mcg INH BID #1 INHALER Ref 0 Prov:Amilcar Pulido MD 08/28/16 Insulin Aspart Inj (Novolog Inj)1,000 Unit/10 Ml Vial2-12 Units SQ ACHS #10 ML Ref 0 Max dose at bedtime ( ) units; sugars less than 70,(0) units; sugars 150-199,(2) units; sugars 200-249,(4) units; sugars 250-299,(7) units; sugars 300-349,(10) units; sugars greater than 349,(12)units Prov:Amilcar Pulido MD 08/28/16 Parenteral Therapy Supplies (Sharpsafety Sharps Contai)1 Mis Mis #1 EA .ROUTE DIRECTED Ref 0 Prov:Amilcar Pulido MD 08/28/16 Glucocom Test Strips 1 Capri Capri #1 Ea .route As Directed Prov:Amilcar Pulido MD 08/28/16 Lancets 1 Mis Mis #1 EA .ROUTE DIRECTED Ref 0 Prov:Amilcar Pulido MD 08/28/16 Insulin Syringe/U-100/31G X 5/16" 1 ml 1 Mis Mis #1 EA .ROUTE DIRECTED Ref 0 Prov:Amilcar Pulido MD 08/28/16 Blood Glucose Monitoring W/Device (Glucocom Blood Glucose Mo W/Device)1 Kit Kit #1 Kit .route As Directed Prov:Amilcar Pulido MD 08/28/16 Insulin Detemir Inj (Levemir Inj)1,000 unit/ 10 ML Vial10 Units SQ BID #1 VIAL Ref 0 Do not mix with any other Insulin. Prov:Amilcar Pulido MD 08/28/16 Clindamycin 150 Mg Spq614 Mg PO Q6H #56 CAP Ref 0 Prov:Amilcar Pulido MD 08/28/16 Scarlet Delgado MD Sep 09, 2016 16:53
== END 2016-08-28 12:07 | disposition home or self-care (01) ==
LOC: PHEFT 21:40 → PHEDA 08-26 → PH3B 08-26 02:32
PROVIDERS: ADMIT Hospitalist; ATTEND Hospitalist
DX: L03.114 Cellulitis of left upper limb (principal); E11.9 Type 2 diabetes mellitus without complications; J44.9 Chronic obstructive pulmonary disease, unspecified; I25.10 Atherosclerotic heart disease of native coronary artery without angina pectoris; I25.2 Old myocardial infarction; M54.9 Dorsalgia, unspecified; G89.29 Other chronic pain; B19.20 Unspecified viral hepatitis C without hepatic coma; E11.65 Type 2 diabetes mellitus with hyperglycemia; B95.61 Methicillin susceptible Staphylococcus aureus infection as the cause of diseases classified elsewhere; Z79.4 Long term (current) use of insulin
CPT/HCPCS: 10160; 73070; 80048; 82948; 83605; 85025; 86403; 87040; 87070; 87147; 87186; 87205; 87641; 96365; 99285; G0378; J1650; J1815; J2270; J3370; J7050

== ENCOUNTER 2017-08-03 18:19 | Emergency (ER) | payer MEDICAID ==
[~2017-08-03] VITALS: Ht 182.9 cm; Wt 70.2 kg
[~2017-08-03 18:19] MED LIST changes: +ASPI-383 PO; +BIOM30MI; +CLIN150C14 PO; +DIAZ2 PO; -GLIP5 PO; +GLUCKIT15; +GLUCTES12; +HYDR-4107 PO; +INSU1MIS15; +LANCETS1 MI1; -LANTUSP SQ; +LEVEMIR SQ; -NOVO7030P2 SQ; +NOVOLOGP2 SQ; +OXYC1TAB13 PO; +PREV15CA20 PO; -RANI150 PO; +SALM50I INH; +VENTAER INH
[2017-08-03 18:27] VITALS: BP 137/79; PULSE 85; RESP 18; TEMP 99.2; O2SAT 99
[2017-08-03] MEDS ORDERED: SULFAMETHOXAZOLE-TRIMETHOPRIM DS 800-160 MG TAB PO ONE (19:00)
[2017-08-03] MEDS ORDERED: CEPHALEXIN MONOHYDRATE 500 MG CAP PO ONE (19:00)
[2017-08-03] MEDS ORDERED: BACT800T5 PO ×2 (19:16→19:30)
[2017-08-03] MEDS ORDERED: CEPH-460 PO ×2 (19:16→19:30)
--- NOTE | 2017-08-03 19:16 | PD ---
HPI Chief Complaint: Bite or Sting Time Seen by Provider: 18:44 Travel History International Travel<30 days: No Contact w/Intl Traveler<30days: No Traveled to known affect area: No History of Present Illness HPI This is a 57-year-old male here with possible insect bite/abscess to the right forearm 3 days. He reports that he was trimming bushes he has slowly developed increasing redness and pain with a central scab to the dorsal aspect of the wrist. He denies possibility of retained foreign body. Denies history of IV drug use. He is diabetic and reports compliance with his medications and no acute elevation in blood sugars. No fever or chills. Symptom severity is moderate. He has had similar abscesses in the past. No aggravating or alleviating factors. PFSH Past Medical History Asthma: Yes Anxiety: Yes Depression: Yes Cancer: No Cardiac Catheterization: Yes Chemotherapy: No COPD: Yes Diabetes: Yes Patient Takes Glucophage: No Diminished Hearing: Yes Hepatitis: Yes (C) Hypertension: Yes Musculoskeletal: Yes (Chronic back pain ) Psychiatric: Yes Reproductive: No Respiratory: Yes (COPD) Myocardial Infarction: Yes Radiation Therapy: No Seizures: Yes Ulcer: Yes Influenza Vaccination: No PNEUMOCCOCAL Vaccine (Year): 3 Past Surgical History Abdominal Surgery: Yes (Umb. 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 1 centimeters area of induration without fluctuance to the right distal forearm with surrounding 2 cm area of mild erythema and warmth. No lymphangitis. HEAD: Normocephalic. EYES: No injection or drainage. NECK: Supple CARDIOVASCULAR: Regular rate and rhythm without murmurs, gallops, or rubs. RESPIRATORY: Breath sounds equal bilaterally. No accessory muscle use. GASTROINTESTINAL: Abdomen soft, non-tender, nondistended. MUSCULOSKELETAL: No cyanosis. Right upper extremely: See skin note above. There is mild edema noted to the distal forearm volar aspect. Patient has full range of motion of the wrist and all fingers. Palpable distal pulses. Normal sensation. Brisk cap refill. Data Data Last Documented VS Vital Signs Date Time Temp Pulse Resp B/P (MAP) Pulse Ox O2 Delivery O2 Flow Rate FiO2 08/03/17 18:27 99.2 85 18 137/79 (98) 99 Orders Orders Sulfamet-Trimeth Ds 800-160 Mg (Bactrim (08/03/17 19:00) Cephalexin (Keflex) (08/03/17 19:00) [facility] Medical Decision Making Medical Screen Exam Complete: Yes Emergency Medical Condition: Yes Differential Diagnosis Abscess, cellulitis, folliculitis, infected insect bite Narrative Course 57-year-old male here with cellulitis to the right forearm. Patient be treated with Bactrim and Keflex. He is instructed to apply warm compresses to the area. Follow-up with primary doctor in 2 days for recheck. Diagnosis Primary Impression: Cellulitis of wrist Referrals: Primary Care Physician Additional Instructions: Antibiotics as directed. Apply warm compresses to the area several times per day. Follow-up for recheck in 2 days. Return to emergency department if he develop new or worsening symptoms. Scripts Cephalexin (Keflex) 500 Mg Cap 500 MG PO Q6H for Infection for 10 Days, #40 CAP 0 Refills Prov: Taylor Gregory 08/03/17 Sulfamethoxazole-Trimethoprim (Bactrim DS) 800-160 Mg Tab 1 TAB PO BID for Infection, #20 TAB 0 Refills Prov: Taylor Gregory 08/03/17 Disposition: 01 DISCHARGE HOME Condition: Stable Taylor Gregory August 03, 2017 19:16
== END 2017-08-03 19:47 | disposition home or self-care (01) ==
LOC: PHEFT 18:19
DX: L03.113 Cellulitis of right upper limb (principal); F41.9 Anxiety disorder, unspecified; J44.9 Chronic obstructive pulmonary disease, unspecified; E11.9 Type 2 diabetes mellitus without complications; I10 Essential (primary) hypertension; I25.2 Old myocardial infarction; F32.9 Major depressive disorder, single episode, unspecified; F17.200 Nicotine dependence, unspecified, uncomplicated; Z86.69 Personal history of other diseases of the nervous system and sense organs
CPT/HCPCS: 99283

== ENCOUNTER 2017-08-05 17:51 | Emergency (ER) | payer MEDICAID ==
[~2017-08-05] VITALS: Ht 182.9 cm; Wt 71.0 kg
[~2017-08-05 17:51] MED LIST changes: -ASPI-383 PO; +BACT800T5 PO; -BIOM30MI; +CEPH-460 PO; -CLIN150C14 PO; -DIAZ2 PO; -GLUCKIT15; -GLUCTES12; -HYDR-4107 PO; -INSU1MIS15; -LANCETS1 MI1; -LEVEMIR SQ; -NOVOLOGP2 SQ; -OXYC1TAB13 PO; -PREV15CA20 PO; -SALM50I INH; -VENTAER INH
[2017-08-05 17:55] VITALS: BP 133/71; PULSE 89; RESP 14; TEMP 99.6; O2SAT 97
[2017-08-05] MEDS ORDERED: SODIUM CHLORIDE 0.9% FLUSH 10 ML FLUSH IV FLUSH PRN (18:15)
[2017-08-05 18:23] VITALS: O2SAT 100
[2017-08-05 18:30] LABS: AUTOMATED NEUTROPHIL # 5.7 TH/MM3 (1.8-7.7); BASOPHIL % 0.4 % (0.0-2.0); EOSINOPHIL # 0.3 TH/MM3 (0-0.4); EOSINOPHIL % 3.1 % (0.0-4.0); HEMATOCRIT 37.2 % (39.0-51.0); HEMOGLOBIN 13.1 GM/DL (13.0-17.0); LYMPH % 23.7 % (9.0-44.0); LYMPHOCYTE # 2.1 TH/MM3 (1.0-4.8); MEAN CELL VOLUME 95.8 FL (80.0-100.0); MEAN CORPUSCULAR HEMOGLOBIN 33.7 PG (27.0-34.0); MEAN CORPUSCULAR HGB CONC 35.1 % (32.0-36.0); MEAN PLATELET VOLUME 8.6 FL (7.0-11.0); MONO % 8.3 % (0.0-8.0); MONOCYTE # 0.7 TH/MM3 (0-0.9); NEUT % 64.5 % (16.0-70.0); PLATELET COUNT 157 TH/MM3 (150-450); RED BLOOD COUNT 3.88 MIL/MM3 (4.50-5.90); RED CELL DISTRIBUTION WIDTH 12.2 % (11.6-17.2); WHITE BLOOD COUNT 8.8 TH/MM3 (4.0-11.0)
[2017-08-05 18:36] LABS: CHLORIDE 96 MEQ/L (98-107); SODIUM (NA) 130 MEQ/L (136-145)
[2017-08-05 18:39] LABS: CALCIUM 8.6 MG/DL (8.5-10.1)
[2017-08-05 18:40] LABS: ALBUMIN 3.1 GM/DL (3.4-5.0); BICARBONATE 26.9 MEQ/L (21.0-32.0); BLOOD UREA NITROGEN 15 MG/DL (7-18); GLUCOSE,RANDOM 330 MG/DL (74-106)
[2017-08-05 18:43] LABS: ALT (GPT) 46 U/L (12-78); AST (GOT) 25 U/L (15-37); CREATININE 0.73 MG/DL (0.60-1.30); GLOMERULAR FILTRATION RATE 112 ML/MIN (>89)
[2017-08-05 18:45] LABS: TOTAL BILIRUBIN ADULT 0.5 MG/DL (0.2-1.0); TOTAL PROTEIN 7.5 GM/DL (6.4-8.2)
[2017-08-05 18:46] LABS: ALKALINE PHOSPHATASE 89 U/L (45-117)
[2017-08-05] MEDS ORDERED: DALBAVANCIN INJ 1,500 MG in DEXTROSE 5% IN WATE 500 ML INJ 500 ML IV STA ×2 (18:53)
[2017-08-05] MEDS ORDERED: ASP: No known hypersensitivity to Vanco, Telavancin, Dalbavancin OTHER ONE (19:00)
[2017-08-05] MEDS ORDERED: INSULIN HUMAN REGULAR 1,000 UNITS/10 ML VIAL IV PUSH ONE (19:00)
[2017-08-05] MEDS ORDERED: SODIUM CHLOR 0.9% 1000 ML INJ 1,000 ML IV ONE (19:00)
[2017-08-05] MEDS ORDERED: PHARMACY INFORMATION XX ONE (19:00)
[2017-08-05] MEDS ORDERED: ASP: Location of Dalbavancin administration OTHER ONE (19:00)
[2017-08-05] MEDS ORDERED: ASP: Only reason for admit - IV antibiotics OTHER ONE (19:00)
--- NOTE | 2017-08-05 19:15 | PD ---
HPI Chief Complaint: Skin Problem Time Seen by Provider: 18:04 Travel History International Travel<30 days: No Contact w/Intl Traveler<30days: No Traveled to known affect area: No History of Present Illness HPI Patient 57-year-old male history of diabetes presents emergency department for reevaluation of right arm spider bite and cellulitis. The patient states that since seen here 2 days ago he is fill his antibiotics and is taking them but continues to have problems with the right upper extremity. He states since leaving his wound had come to ahead and it drained some purulent material, the area of redness had also spread proximally all the way up to just below the AC fossa. Denies any fevers nausea vomiting diarrhea constipation. He is eating and has eaten a milkshake while in the emergency department. States symptoms are moderate, context diabetes,, gradually worsening over the past week or so. Patient adamantly denies a history of IV drug abuse. PFSH Past Medical History Asthma: Yes Anxiety: Yes Depression: Yes Cancer: No Cardiac Catheterization: Yes Chemotherapy: No COPD: Yes Diabetes: Yes Patient Takes Glucophage: No Diminished Hearing: Yes Hepatitis: Yes (C) Hypertension: Yes Musculoskeletal: Yes (Chronic back pain ) Psychiatric: Yes Reproductive: No Respiratory: Yes (COPD) Myocardial Infarction: Yes Radiation Therapy: No Seizures: Yes Ulcer: Yes PNEUMOCCOCAL Vaccine (Year): 3 Past Surgical History Abdominal Surgery: Yes (Umb. 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 There is a small wound to the dorsum of the right wrist, no drainage could be expressed, is minimal induration, erythema spreads on the dorsum of the forearm distally to the MCP joints and proximally to about 2 cm below the AC fossa, it is only on the dorsal lateral aspect and is only about 50% around the circumference of the forearm. There is no lymphangitis proximal to this. HEAD: Atraumatic. Normocephalic. EYES: Pupils equal and round. No scleral icterus. No injection or drainage. ENT: No nasal bleeding or discharge. Mucous membranes pink and moist. NECK: Trachea midline. No JVD. CARDIOVASCULAR: Regular rate and rhythm. No murmur appreciated. RESPIRATORY: No accessory muscle use. Clear to auscultation. Breath sounds equal bilaterally. GASTROINTESTINAL: Abdomen soft, non-tender, nondistended. Hepatic and splenic margins not palpable. MUSCULOSKELETAL: No obvious deformities. No clubbing. No cyanosis. No edema. NEUROLOGICAL: Awake and alert. No obvious cranial nerve deficits. Motor grossly within normal limits. Normal speech. PSYCHIATRIC: Appropriate mood and affect; insight and judgment normal. Data Data Last Documented VS Vital Signs Date Time Temp Pulse Resp B/P (MAP) Pulse Ox O2 Delivery O2 Flow Rate FiO2 08/05/17 22:10 77 20 123/73 (90) 96 08/05/17 20:13 Room Air 08/05/17 17:55 99.6 Orders Orders Complete Blood Count With Diff (08/05/17 18:04) Comprehensive Metabolic Panel (08/05/17 18:04) Iv Access Insert/Monitor (08/05/17 18:04) Ecg Monitoring (08/05/17 18:04) Oximetry (08/05/17 18:04) Sodium Chloride 0.9% Flush (Ns Flush) (08/05/17 18:15) Consult Infectious Disease (08/05/17 ) Case Management Consult (08/05/17 ) Asp:No Reaction To [place]/Vanc (Asp Crit (08/05/17 19:00) Asp: Iv Antibiotics Admit Only (Asp Crit (08/05/17 19:00) Asp: Location Of [facility] Admin (Asp Crit: (08/05/17 19:00) Pharmacy Information ([facility] [place] Pharmacy Info (08/05/17 19:00) [facility] Inj ([facility] Inj) (08/05/17 18:53) Sodium Chlor 0.9% 1000 Ml Inj (Ns 1000 M (08/05/17 19:00) Insulin Human Regular Inj (Novolin R Inj (08/05/17 19:00) (Hub Use Only)Inp Phy Cons/Ref (08/05/17 ) Ed Discharge Order (08/05/17 21:43) Labs Laboratory Tests Test 08/05/17 18:17 White Blood Count 8.8 TH/MM3 Red Blood Count 3.88 MIL/MM3 Hemoglobin 13.1 GM/DL Hematocrit 37.2 % Mean Corpuscular Volume 95.8 FL Mean Corpuscular Hemoglobin 33.7 PG Mean Corpuscular Hemoglobin Concent 35.1 % Red Cell Distribution Width 12.2 % Platelet Count 157 TH/MM3 Mean Platelet Volume 8.6 FL Neutrophils (%) (Auto) 64.5 % Lymphocytes (%) (Auto) 23.7 % Monocytes (%) (Auto) 8.3 % Eosinophils (%) (Auto) 3.1 % Basophils (%) (Auto) 0.4 % Neutrophils # (Auto) 5.7 TH/MM3 Lymphocytes # (Auto) 2.1 TH/MM3 Monocytes # (Auto) 0.7 TH/MM3 Eosinophils # (Auto) 0.3 TH/MM3 Basophils # (Auto) 0.0 TH/MM3 CBC Comment DIFF FINAL Differential Comment Blood Urea Nitrogen 15 MG/DL Creatinine 0.73 MG/DL Random Glucose 330 MG/DL Total Protein 7.5 GM/DL Albumin 3.1 GM/DL Calcium Level 8.6 MG/DL Alkaline Phosphatase 89 U/L Aspartate Amino Transf (AST/SGOT) 25 U/L Alanine Aminotransferase (ALT/SGPT) 46 U/L Total Bilirubin 0.5 MG/DL Sodium Level 130 MEQ/L Potassium Level 4.1 MEQ/L Chloride Level 96 MEQ/L Carbon Dioxide Level 26.9 MEQ/L Anion Gap 7 MEQ/L Estimat Glomerular Filtration Rate 112 ML/MIN [facility] Medical Decision Making Medical Screen Exam Complete: Yes Emergency Medical Condition: Yes Differential Diagnosis Cellulitis, sepsis, abscess, failure of outpatient therapy peer Narrative Course Patient room to the emergency department, nursing is some concerns of the patient may not have filled his antibiotics, certainly he appears well in no obvious distress, his blood sugar significantly elevated suggesting a partial immune compromise. There is no evidence of DKA, his labs are reassuring and he does not meet septic criteria. He is eating a milkshake in the emergency department which would explain why his sugar went up despite insulin and normal saline. He is a good daunorubicin candidate and this was discussed with him, ultimately he did receive 1500 mg of daunorubicin. I discussed with him to continue taking his p.o. antibiotics and expect some improvement within the next 2 days, discuss any worsening fevers nausea vomiting or any other concerning symptoms he should return to the ED for additional evaluation. Discussed follow-up with infectious disease and her primary care physician and to limit his carbohydrate intake. He is stable for discharge. On examination of his wound there was no indication for incision and drainage of the wrist does not appear to be any significant abscessed fluid collection. Diagnosis Primary Impression: Cellulitis of forearm, right Additional Instructions: Give your arm two days to heal, if no better return to the ER. Take your bactrim (trimethoprim/sulfamethoxazole) and keflex until they are all gone. Follow up with your regular physician or the [email or web address]] for check up. Disposition: 01 DISCHARGE HOME Condition: Stable Angel Carter MD Aug 05, 2017 19:15
--- NOTE | 2017-08-05 19:36 | PD ---
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 Reported Meds & Prescriptions Reported Meds & Active Scripts Active Keflex (Cephalexin) 500 Mg Cap 500 Mg PO Q6H 10 Days Bactrim DS (Sulfamethoxazole-Trimethoprim) 800-160 Mg Tab 1 Tab PO BID Data Data Last Documented VS Vital Signs Date Time Temp Pulse Resp B/P (MAP) Pulse Ox O2 Delivery O2 Flow Rate FiO2 08/05/17 20:13 77 18 101/69 (80) 100 Room Air 08/05/17 17:55 99.6 Orders Orders Complete Blood Count With Diff (08/05/17 18:04) Comprehensive Metabolic Panel (08/05/17 18:04) Iv Access Insert/Monitor (08/05/17 18:04) Ecg Monitoring (08/05/17 18:04) Oximetry (08/05/17 18:04) Sodium Chloride 0.9% Flush (Ns Flush) (08/05/17 18:15) Consult Infectious Disease (08/05/17 ) Case Management Consult (08/05/17 ) Asp:No Reaction To [place]/Vanc (Asp Crit (08/05/17 19:00) Asp: Iv Antibiotics Admit Only (Asp Crit (08/05/17 19:00) Asp: Location Of [facility] Admin (Asp Crit: (08/05/17 19:00) Pharmacy Information ([facility] [place] Pharmacy Info (08/05/17 19:00) [facility] Inj ([facility] Inj) (08/05/17 18:53) Sodium Chlor 0.9% 1000 Ml Inj (Ns 1000 M (08/05/17 19:00) Insulin Human Regular Inj (Novolin R Inj (08/05/17 19:00) (Hub Use Only)Inp Phy Cons/Ref (08/05/17 ) Labs Laboratory Tests Test 08/05/17 18:17 White Blood Count 8.8 TH/MM3 Red Blood Count 3.88 MIL/MM3 Hemoglobin 13.1 GM/DL Hematocrit 37.2 % Mean Corpuscular Volume 95.8 FL Mean Corpuscular Hemoglobin 33.7 PG Mean Corpuscular Hemoglobin Concent 35.1 % Red Cell Distribution Width 12.2 % Platelet Count 157 TH/MM3 Mean Platelet Volume 8.6 FL Neutrophils (%) (Auto) 64.5 % Lymphocytes (%) (Auto) 23.7 % Monocytes (%) (Auto) 8.3 % Eosinophils (%) (Auto) 3.1 % Basophils (%) (Auto) 0.4 % Neutrophils # (Auto) 5.7 TH/MM3 Lymphocytes # (Auto) 2.1 TH/MM3 Monocytes # (Auto) 0.7 TH/MM3 Eosinophils # (Auto) 0.3 TH/MM3 Basophils # (Auto) 0.0 TH/MM3 CBC Comment DIFF FINAL Differential Comment Blood Urea Nitrogen 15 MG/DL Creatinine 0.73 MG/DL Random Glucose 330 MG/DL Total Protein 7.5 GM/DL Albumin 3.1 GM/DL Calcium Level 8.6 MG/DL Alkaline Phosphatase 89 U/L Aspartate Amino Transf (AST/SGOT) 25 U/L Alanine Aminotransferase (ALT/SGPT) 46 U/L Total Bilirubin 0.5 MG/DL Sodium Level 130 MEQ/L Potassium Level 4.1 MEQ/L Chloride Level 96 MEQ/L Carbon Dioxide Level 26.9 MEQ/L Anion Gap 7 MEQ/L Estimat Glomerular Filtration Rate 112 ML/MIN nAgel Carter MD Aug 05, 2017 19:36
[2017-08-05 20:13] VITALS: BP 101/69; PULSE 77; RESP 18; O2SAT 100
[2017-08-05 22:10] VITALS: BP 123/73
== END 2017-08-05 22:17 | disposition home or self-care (01) ==
LOC: PHED 17:51
DX: L03.113 Cellulitis of right upper limb (principal); E11.9 Type 2 diabetes mellitus without complications; I10 Essential (primary) hypertension; I25.2 Old myocardial infarction; J44.9 Chronic obstructive pulmonary disease, unspecified; F41.9 Anxiety disorder, unspecified; F32.9 Major depressive disorder, single episode, unspecified; F17.200 Nicotine dependence, unspecified, uncomplicated; Z95.5 Presence of coronary angioplasty implant and graft; Z88.8 Allergy status to other drugs, medicaments and biological substances; Z79.2 Long term (current) use of antibiotics
CPT/HCPCS: 80053; 85025; 96361; 96365; 96375; 99284; J0875; J1815; J7030; J7060

== ENCOUNTER 2017-10-27 09:01 | Inpatient (IN) ==
[2017-10-27] MEDS ORDERED: Vancomycin Inj 1 GM/200 ML PIGGYBACK IV.SIG ONE (11:33)
--- NOTE | 2017-10-27 11:41 | ED ---
HPI General Chief complaint: Skin/Abscess/Foreign Body Stated complaint: Poss Infection on left hand Time Seen by Provider: 10/27/17 11:20 History of Present Illness HPI narrative: This patient was seen here for an infection of the left fourth finger recently and started on Bactrim. Cultures have grown out MRSA sensitive to Bactrim yet his infection continues to worsen. He reports compliance with the medication he denies fever. His left hand has become more swollen and painful. He does drip pus from the palm of his hand now as well as some drainage from the left fourth finger. Duration 10 days. No alleviating factors. No exacerbating factors. Symptom severity is moderate to severe. He is an insulin-dependent diabetic with poor control. He reports his sugars are in the 500s today. He took some insulin and his current Accu-Chek is 344 Related Data Home Medications Medication Instructions Recorded Confirmed clopidogrel 75 mg PO DAILY 10/11/17 10/27/17 lisinopril 5 mg PO DAILY 10/11/17 10/27/17 omeprazole 40 mg PO DAILY 10/11/17 10/27/17 pregabalin [Lyrica] 200 mg PO BID 10/11/17 10/27/17 simvastatin 10 mg PO QPM 10/11/17 10/27/17 tizanidine 2 mg PO BID 10/11/17 10/27/17 trazodone 150 mg PO HS 10/11/17 10/27/17 aspirin 325 mg PO DAILY 10/27/17 10/27/17 budesonide-formoterol [Symbicort] 2 puff INHALATION BID 10/27/17 10/27/17 diazepam [Valium] 10 mg PO TID PRN 10/27/17 10/27/17 fluticasone-salmeterol [Advair HFA] 2 puff INHALATION BID PRN 10/27/17 10/27/17 insulin aspart U-100 [Novolog 15 unit SUB-Q TIDAC 10/27/17 10/27/17 U-100 Insulin aspart] insulin glargine [Lantus U-100 50 unit SUB-Q HS 10/27/17 10/27/17 Insulin] oxycodone 15 mg PO QID PRN 10/27/17 10/27/17 Previous Rx's Medication Instructions Recorded mupirocin 1 applic TOPICAL QID PRN #15 g 10/22/17 sulfamethoxazole-trimethoprim 1 tab PO BID 10 Days #20 tab 10/22/17 [Bactrim DS] Allergies Allergy/AdvReac Type Severity Reaction Status Date / Time quetiapine Allergy Unknown Psychosis Verified 10/11/17 10:14 *MDRO Multi-Drug Resistant AdvReac Unknown Chills Uncoded 10/11/17 10:14 Organism Review of Systems ROS: all other systems reviewed are negative [facility] Medical History Medical History MRSA (methicillin resistant Staphylococcus aureus) (Acute) Diabetes (Acute) Social History Social History Substance History: Active Abuse Second Hand Smoke Exposure: Yes Smoking Status: Current every day smoker Tobacco Type: Cigarettes How Often Do You Have a Drink Containing Alcohol: 2 to 4 times a month Recent Travel in [facility] within the Last 8 Weeks: No Recent Out of Country Travel within the Last 8 Weeks: No Exam Narrative Exam Narrative: GENERAL: Well-nourished, well-developed patient in no apparent distress. SKIN: Focused skin assessment reveals no rash and nodules. Skin is Warm and dry. HEAD: Atraumatic. Normocephalic. EYES: Pupils equal and round. No scleral icterus. No injection or drainage. ENT: No nasal bleeding or discharge. Mucous membranes pink and moist. NECK: Trachea midline. No JVD. CARDIOVASCULAR: Regular rate and rhythm. No murmur appreciated. RESPIRATORY: No accessory muscle use. Clear to auscultation. Breath sounds equal bilaterally. GASTROINTESTINAL: Abdomen soft, non-tender, nondistended. Hepatic and splenic margins not palpable. MUSCULOSKELETAL: No obvious deformities. No clubbing. No cyanosis. Examination of the left hand reveals that the hand is diffusely swollen. There is a necrotic appearing wound at the left fourth finger, proximal phalanx. Does not involve the joint. He does have good flexion extension of the joints of that finger. The entire palm area is swollen and there is some purulence there. No active drainage though. NEUROLOGICAL: Awake and alert. No obvious cranial nerve deficits. Motor grossly within normal limits. Normal speech. PSYCHIATRIC: Appropriate mood and affect; insight and judgment normal. Course Initial Documented Vital Signs Temperature 98.2 F 10/27/17 09:06 Pulse Rate 73 10/27/17 09:06 Respiratory Rate 20 10/27/17 09:06 Blood Pressure 116/63 10/27/17 09:06 Pulse Oximetry 99 10/27/17 09:06 Last Documented Vital Signs Temperature 98.2 F 10/27/17 09:06 Pulse Rate 73 10/27/17 09:06 Respiratory Rate 20 10/27/17 09:06 Blood Pressure 116/63 10/27/17 09:06 Pulse Oximetry 99 10/27/17 09:06 Medical Decision Making MDM Narrative Medical decision making narrative: IV placed and labs sent. Current Accu-Chek 344. I am giving him a liter of saline IV as well as 7 units IV regular insulin and 1 gram IV vancomycin He will require admission for IV antibiotics and hand surgeon consultation. He has failed outpatient treatment. CBC was recollected and still pending. Metabolic studies are reviewed. His bicarbonate is normal, he is not in DKA. Sugars improved from earlier. I spoke with hand surgeon about this case. He recommended CT scan of the hand be done to evaluate for drainable fluid collection. I have ordered that. I have also spoke with the medical residents who will admit. Medical Screen Exam Complete: Yes Emergency Medical Condition: Yes Differential Diagnosis Differential Diagnosis: Cellulitis, abscess, failure of outpatient treatment Medical Records Medical records reviewed: Yes I reviewed the patient's medical records. Reviewed his most recent visit and his culture results Lab Data Result diagrams: 10/27/17 12:20 10/27/17 12:20 Lab Results 10/27/17 10/27/17 Range/Units 11:35 12:20 Sodium 133 L (136-145) meq/L Potassium 4.0 (3.5-5.1) meq/L Chloride 97 L (98-107) meq/L Carbon Dioxide 25.9 (21.0-32.0) meq/L Anion Gap 10 (5-15) meq/L BUN 6 L (7-18) mg/dL Creatinine 0.73 (0.60-1.30) mg/dL Estimated GFR Greater than 89 (>89) mL/min POC Glucose 344 H (68-110) mg/dl Random Glucose 312 H (74-106) mg/dL Calcium 9.3 (8.5-10.1) mg/dL Discharge Plan Discharge Disposition Patient Disposition: 30 Still Patient Discharge Order Discharge Orders: Discharge Order (Routine); Ordered 10/27/17 Ordered By: Arturo Jesus Discharge Details Diagnosis: Infection of hand, Failure of outpatient treatment Physicians Team ED Provider: Arturo Jesus Primary Care Provider: Brock Maurice Rxs /Orders / Referrals /Forms Prescriptions: No Action tizanidine 2 mg Capsule 2 mg PO BID RF: 0 trazodone 150 mg Tablet 150 mg PO HS RF: 0 simvastatin 10 mg Tablet 10 mg PO QPM RF: 0 lisinopril 5 mg Tablet 5 mg PO DAILY RF: 0 pregabalin [Lyrica] 200 mg Capsule 200 mg PO BID RF: 0 omeprazole 40 mg Capsule,Delayed Release(Dr/Ec) 40 mg PO DAILY RF: 0 clopidogrel 75 mg Tablet 75 mg PO DAILY RF: 0 sulfamethoxazole-trimethoprim [Bactrim DS] 800-160 mg tablet 1 tab PO BID 10 Days Qty: 20 RF: 0 mupirocin 2 % ointment 1 applic TOPICAL QID PRN (Reason: wound care) Qty: 15 RF: 0 insulin glargine [Lantus U-100 Insulin] 100 unit/mL Solution 50 unit SUB-Q HS RF: 0 aspirin 325 mg Tablet 325 mg PO DAILY RF: 0 oxycodone 15 mg Tablet 15 mg PO QID PRN (Reason: Pain) RF: 0 insulin aspart U-100 [Novolog U-100 Insulin aspart] 100 unit/mL Solution 15 unit SUB-Q TIDAC RF: 0 diazepam [Valium] 10 mg Tablet 10 mg PO TID PRN (Reason: Anxiety) RF: 0 fluticasone-salmeterol [Advair HFA] 45-21 mcg/actuation Hfa Aerosol Inhaler 2 puff INHALATION BID PRN (Reason: Shortness Of Breath) RF: 0 budesonide-formoterol [Symbicort] 160-4.5 mcg/actuation Hfa Aerosol Inhaler 2 puff INHALATION BID RF: 0 Status ED Status: With Doctor
[2017-10-27] MEDS ORDERED: Sod Chloride 0.9% Inj 1,000 ML IV.SIG SCH (11:45)
[2017-10-27 12:58] LABS: Anion Gap 10 meq/L (5-15); Blood Urea Nitrogen 6 mg/dL (7-18); Calcium 9.3 mg/dL (8.5-10.1); Carbon Dioxide 25.9 meq/L (21.0-32.0); Chloride 97 meq/L (98-107); Glomerular Filtration Rate Greater Than 89 mL/min (>89); Glucose,Random 312 mg/dL (74-106); Sodium 133 meq/L (136-145)
[2017-10-27] MEDS ORDERED: Vancomycin Inj 1,000 MG in Sodium Chlor 0.9% Inj 250 ML IV.SIG ONE (13:00)
[2017-10-27 14:12] LABS: Baso % (Auto) 0.4 % (0.0-2.0); Eos # (Auto) 0.2 th/mm3 (0.0-0.4); Eos % (Auto) 2.5 % (0.0-4.0); Hematocrit 38.2 % (39.0-51.0); Hemoglobin 13.1 gm/dL (13.0-17.0); Lymph # (Auto) 1.2 th/mm3 (1.0-4.8); Mean Corpuscular HGB Conc 34.4 % (32.0-36.0); Mean Corpuscular Volume 98.8 fL (80.0-100.0); Mean Platelet Volume 8.6 fL (7.0-11.0); Mono # (Auto) 0.6 th/mm3 (0.0-0.9); Neut # (Auto) 4.8 th/mm3 (1.8-7.7); Neut % (Auto) 70.1 % (16.0-70.0); Platelet Count 175 th/mm3 (150-450); Red Blood Count 3.87 mil/mm3 (4.50-5.90); Red Cell Distribution Width 13.4 % (11.6-17.2); White Blood Count 6.8 th/mm3 (4.0-11.0)
[2017-10-27] MEDS ORDERED: Bisacodyl 10 MG Supp RECTAL PRN (14:35)
[2017-10-27] MEDS ORDERED: Enoxaparin Inj 40 MG/0.4 ML Syringe SQ SCH (15:00)
--- NOTE | 2017-10-27 15:36 | CT ---
EXAM DATE: 10/27/2017 3:13 PM EDT AGE/SEX: 57 years / Male INDICATIONS: Swollen left hand. Patient thinks bit by spider. Discharged 4 days ago with oral antibi otics. CLINICAL DATA: This is the patient's initial encounter. Patient reports that signs and symptoms have been present for 4 - 6 days and indicates a pain score of 10/10. MEDICAL/SURGICAL HISTORY: Diabetes. None. RADIATION DOSE: 8.59 CTDI (mGy) COMPARISON: No prior exams available for comparison. TECHNIQUE: Multiple contiguous axial images were acquired using a multi-row detector CT scanner afte r the intravenous administration of 70 ml Omnipaque 350 (iohexol) nonionic water-soluble contrast as a single exam dose. Multiplanar reconstruction was performed in the sagittal and coronal planes. Using automated exposure control and adjustment of the mA and/or kV according to patient size, radiat ion dose was kept as low as reasonably achievable to obtain optimal diagnostic quality images. DICOM format image data is available electronically for review and comparison. FINDINGS: Bones: The bony structures about the hand are in normal alignment. The distal radius, distal ulna a nd carpus are intact. No fracture is seen. Joints: No significant arthropathy is seen. Soft Tissues: There is diffuse nonspecific soft tissue swelling throughout the region of the hand. N o loculated fluid collections are seen to suggest a drainable abscess. Other: No foreign bodies seen. Post Contrast: No abnormal areas of enhancement are seen in the soft tissues. CONCLUSION: 1. Diffuse nonspecific soft tissue swelling and/or edema. Findings suggest diffuse cellulitis. 2. No evidence of any loculated fluid collections to indicate a drainable abscess. 3. The bony structures are grossly intact. Electronically signed by: Timothy Eaton MD 10/27/2017 3:34 PM EDT
[2017-10-27] MEDS ORDERED: Dextrose 50% in Water 50 ML Vial IV.PUSH PRN (16:52)
--- NOTE | 2017-10-27 18:07 | P.HPFP ---
History of Present Illness Primary Care Physician: Brock Maurice DO <Jorge Renteriaon - 10/28/17 13:50> Brock Maurice DO <Daniela Schneider V 10/27/17 18:07> Chief Complaint: Hand cellulitis <Daniela Schneider V 10/27/17 18:46> History of Present Illness: 57 yr old male with a PMH of [place], COPD, Insulin dependent DM, and chronic pain, presenting to the ED for failling outpatient treatment of L hand cellulitis. Pt was on ED 5 days ago and was given Bactrim 800/160 mg, for cellulitis. Pt states he has been taking his antibiotics every day and has not missed a dose. Originally, the infection started on the dorsal side of his L hand, with what he thinks was a spider bite. Now, the cellulitis has spread significantly all over his hand, including hand swelling and pain. Pt describes the pain as a 10/10, shooting, starting in the middle of his hand, and radiating to his fingers. Cultures taken from wound on ED came back as MRSA +. <Daniela Schneider V 10/27/17 18:46> - Diagnosis (1) Infection of hand (2) Failure of outpatient treatment (3) Insulin dependent diabetes mellitus (4) Sciatic nerve pain (5) Chronic pain (6) Hypertension (7) Anxiety (8) Drug abuse (9) COPD (chronic obstructive pulmonary disease) (10) Hepatitis B (11) Hepatitis C infection (12) DVT prophylaxis (13) Nutrition, metabolism, and development symptoms <Nargis Renteria 10/28/17 13:50> (1) Infection of hand (2) Failure of outpatient treatment (3) Insulin dependent diabetes mellitus (4) Sciatic nerve pain (5) Chronic pain (6) Hypertension (7) Anxiety (8) Drug abuse (9) COPD (chronic obstructive pulmonary disease) (10) Hepatitis B (11) Hepatitis C infection (12) DVT prophylaxis (13) Nutrition, metabolism, and development symptoms <Daniela Schneider V 10/27/17 19:36> Inpatient Certification: I certify that the inpatient services were ordered in accordance with Medicare regulations governing the order. This includes certification that hospital inpatient services are reasonable and necessary and in the case of services not specified as inpatient-only under 42 CFR 419.22(n), that they are appropriately provided as inpatient services in accordance to with the 2-midnight benchmark under 43 CFR 412.3(e) <Nargis Renteria - 10/28/17 13:50> I certify that the inpatient services were ordered in accordance with Medicare regulations governing the order. This includes certification that hospital inpatient services are reasonable and necessary and in the case of services not specified as inpatient-only under 42 CFR 419.22(n), that they are appropriately provided as inpatient services in accordance to with the 2-midnight benchmark under 43 CFR 412.3(e) <Daniela Schneider V 10/27/17 18:07> Estimated Total Length of Stay (Days): 3 <Daniela Schneider V 10/27/17 18: 07> Plans for Post Hospital Care: Home <Daniela Schneider V 10/27/17 18:07> Review of Systems Constitutional: Denies body ache(s), Denies chills, Denies fever(s) <Daniela Schneider V 10/27/17 18:46> Cardiovascular: Denies chest pain, Denies shortness of breath <Daniela Schneider V 10/27/17 18:46> Respiratory: Denies shortness of breath <Daniela Schneider V 10/27/17 18: 46> Gastrointestinal: Denies abdominal pain <Daniela Schneider V 10/27/17 18: 46> Musculoskeletal: Reports back pain, Reports joint pain, Reports numbness (of L hand fingers) <Daniela Schneider V 10/27/17 18:46> Skin/Breast: Reports new lesions, Reports wounds <Daniela Schneider V 18:46> Psychiatric: Reports anxiety, Reports other (Using drugs to calm his pain - Cocaine last night) <Daniela Schneider V 10/27/17 18:46> PMFSH - History History Provided By: Patient <Daniela Schneider V 10/27/17 18:07> - Medical History Medical History: Medical History (Last Updated 10/27/17 @ 19:20 by Daniela Patel MD, R1) Drug abuse (Acute) Hepatitis B (Chronic) Hepatitis C infection (Chronic) Sciatic nerve pain (Chronic) Insulin dependent diabetes mellitus (Chronic) Chronic pain (Chronic) Hypertension (Chronic) Anxiety (Chronic) COPD (chronic obstructive pulmonary disease) (Acute) MRSA (methicillin resistant Staphylococcus aureus) (Acute) Diabetes (Acute) History of ankle fracture <Nargis Renteria - 10/28/17 13:50> Medical History (Last Updated 10/27/17 @ 19:20 by Daniela Paetl MD, R1) Drug abuse (Acute) Hepatitis B (Chronic) Hepatitis C infection (Chronic) Sciatic nerve pain (Chronic) Insulin dependent diabetes mellitus (Chronic) Chronic pain (Chronic) Hypertension (Chronic) Anxiety (Chronic) COPD (chronic obstructive pulmonary disease) (Acute) MRSA (methicillin resistant Staphylococcus aureus) (Acute) Diabetes (Acute) History of ankle fracture <Daniela Schneider V 10/27/17 19:35> - Surgical History Surgical History: Surgical History (Last Updated 10/27/17 @ 18:49 by Daniela Patel MD, R1 ) History of cataract surgery <Nargis Renteria Christofer - 10/28/17 13:50> Surgical History (Last Updated 10/27/17 @ 18:49 by Daniela Patel MD, R1 ) History of cataract surgery <Daniela Schneider V 10/27/17 18:50> - Family History Family History: Family History (Last Updated 10/27/17 @ 18:49 by Daniela Patel MD, R1) Other Family history of diabetes mellitus Family history of hypertension <Nargis Renteria Christofer - 10/28/17 13:50> Family History (Last Updated 10/27/17 @ 18:49 by Daniela Patel MD, R1) Other Family history of diabetes mellitus Family history of hypertension <Daniela Schneider V 10/27/17 18:50> - Tobacco History Second Hand Smoke Exposure: Yes <Daniela Schneider V 10/27/17 18:07> Tobacco Use In Past 30 Days: Yes <Daniela Schneider V 10/27/17 18:07> Smoking Status: Current every day smoker <Daniela Schneider V 10/27/17 18: 07> Tobacco Type: Cigarettes <Daniela Schneider V 10/27/17 18:07> Packs Per Day: 2 <Daniela Schneider V 10/27/17 18:50> Years Smoked: 43 <Daniela Schneider V 10/27/17 18:50> - Alcohol History How Often Do You Have a Drink Containing Alcohol: 2 to 4 times a month <Daniela Schneider V 10/27/17 18:07> - Substance Use History Substance History: Active Abuse (Cocaine) <Daniela Schneider V 10/27/17 18 :50> - Substance Use Type Crack/Cocaine Status: Active <Daniela Schneider V 10/27/17 18:07> Route Used: Inhalation <Daniela Schneider V 10/27/17 18:07> Last Used: YESTERDAY <Daniela Schneider V 10/27/17 18:07> Marijuana Status: Active <Daniela Schneider V 10/27/17 18:07> Route Used: Inhalation <Daniela Schneider V 10/27/17 18:07> Last Used: YESTERDAY <Daniela Schneider V 10/27/17 18:07> - Travel History Recent Travel in the [facility] Within the Last 8 Weeks: No <Daniela Schneider V 10/27/17 18:07> Recent Travel Out of the Country Within the Last 8 Weeks: No <Daniela Schneider V 10/27/17 18:07> - Immunization History Tetanus Immunization: Unsure <Daniela Schneider V 10/27/17 18:07> Hx Influenza Vaccine This Season: No <Daniela Schneider V 10/27/17 18:07> Medications and Allergies Allergies Allergy/AdvReac Type Severity Reaction Status Date / Time quetiapine Allergy Unknown Psychosis Verified 10/11/17 10:14 *MDRO Multi-Drug Resistant AdvReac Unknown Chills Uncoded 10/11/17 10:14 Organism <Nargis Renteria 10/28/17 13:50> Home Medications Medication Instructions Recorded Confirmed Type clopidogrel 75 mg PO DAILY 10/11/17 10/27/17 History lisinopril 5 mg PO DAILY 10/11/17 10/27/17 History omeprazole 40 mg PO DAILY 10/11/17 10/27/17 History pregabalin [Lyrica] 200 mg PO BID 10/11/17 10/27/17 History simvastatin 10 mg PO QPM 10/11/17 10/27/17 History tizanidine 2 mg PO BID 10/11/17 10/27/17 History trazodone 150 mg PO HS 10/11/17 10/27/17 History aspirin 325 mg PO DAILY 10/27/17 10/27/17 History budesonide-formoterol [Symbicort] 2 puff INHALATION BID 10/27/17 10/27/17 History diazepam [Valium] 10 mg PO TID PRN 10/27/17 10/27/17 History fluticasone-salmeterol [Advair HFA] 2 puff INHALATION BID PRN 10/27/17 10/27/17 History insulin aspart U-100 [Novolog 15 unit SUB-Q TIDAC 10/27/17 10/27/17 History U-100 Insulin aspart] insulin glargine [Lantus U-100 50 unit SUB-Q HS 10/27/17 10/27/17 History Insulin] oxycodone 15 mg PO QID PRN 10/27/17 10/27/17 History <Nargis Renteria M - 10/28/17 13:50> Active Medications: Active Medications Hydrocodone Bitart/Acetaminophen ([place] 5/325) 1 tab PO Q4H PRN PRN Reason: pain 1-5 Hydrocodone Bitart/Acetaminophen ([place] 10/325) 1 tab PO Q4H PRN PRN Reason: PAIN 6-10 Last Admin: 10/28/17 12:26 Dose: 1 tab Al Hydroxide/Mg Hydroxide (Milk Of Magncarly Liq) 30 ml PO Q12H PRN PRN Reason: Mild Constipation Bisacodyl (Dulcolax Supp) 10 mg RECTAL DAILY PRN PRN Reason: SEVERE CONSITIPATION Budesonide/Formoterol Fumarate (Symbicort 80/4.5 Mcg Inh) 2 puff INH BID PRN PRN Reason: SHORTNESS OF BREATH Dextrose (D50w Vial) 50 ml IV.PUSH UNSCH PRN PRN Reason: PER HYPOGLYCEMIA PROTOCOL Diazepam (Valium) 10 mg PO TID PRN PRN Reason: Anxiety Glucagon (Glucagon Inj) 1 mg OTHER PRN PRN PRN Reason: for Hypoglycemia Protocol Heparin Sodium (Porcine) (Heparin Inj) 5,000 units SQ Q12H [facility] Last Admin: 10/28/17 05:20 Dose: 5,000 units Sodium Chloride (Ns Inj) 1,000 mls @ 0 mls/hr IV.SIG BOLUS [facility] Last Infusion: 10/27/17 19:01 Dose: Infused Vancomycin HCl 850 mg/ Sodium (Chloride) 258.5 mls @ 250 mls/hr IV.SIG Q8H [facility] Last Infusion: 10/28/17 06:42 Dose: Infused Insulin Aspart (Novolog Insulin Correctional Sugar Inj) 0 unit SQ [facility]; Protocol Last Admin: 10/28/17 12:26 Dose: 1 unit Insulin Detemir (Levemir Inj) 50 unit SQ [facility] Last Admin: 10/27/17 21:59 Dose: 50 unit Lactulose (Lactulose Liq) 30 ml PO DAILY PRN PRN Reason: SEVERE CONSITIPATION Lisinopril (Prinivil) 5 mg PO DAILY [facility] Last Admin: 10/28/17 08:34 Dose: 5 mg Nicotine (Habitrol 21 Mg Patch.24 Hr) 1 patch T-DERMAL DAILY [facility] Last Admin: 10/28/17 08:34 Dose: 1 patch Ondansetron HCl (Zofran Inj) 4 mg IV.PUSH Q6H PRN PRN Reason: NAUSEA OR VOMITING Pantoprazole Sodium (Protonix) 40 mg PO DAILY [facility] Last Admin: 10/28/17 08:34 Dose: 40 mg Patch Removal (Remove Old Patch) 0 each T-DERMAL DAILY [facility] Last Admin: 10/28/17 08:35 Dose: 1 each Pharmacy Profile Note (Vancomycin Consult Pharmacy) 1 each OTHER UNSCH PRN PRN Reason: Pharmacy to dose Pravastatin Sodium (Pravachol) 20 mg PO HS [facility] Last Admin: 10/27/17 21:57 Dose: 20 mg Pregabalin (Lyrica) 200 mg PO BID [facility] Last Admin: 10/28/17 08:35 Dose: 200 mg Senna/Docusate Sodium (Tyra-Colace) 1 tab PO BID [facility] Last Admin: 10/28/17 08:35 Dose: Not Given Sennosides (Senokot) 17.2 mg PO Q12H PRN PRN Reason: Moderate Constipation Tizanidine HCl (Zanaflex) 2 mg PO BID [facility] Last Admin: 10/28/17 08:34 Dose: 2 mg Trazodone HCl (Desyrel) 150 mg PO HS [facility] Last Admin: 10/27/17 21:57 Dose: 150 mg <Nargis Renteria - 10/28/17 13:50> Active Medications Hydrocodone Bitart/Acetaminophen ([place] 5/325) 1 tab PO Q4H PRN PRN Reason: pain 1-5 Hydrocodone Bitart/Acetaminophen ([place] 10/325) 1 tab PO Q4H PRN PRN Reason: PAIN 6-10 Al Hydroxide/Mg Hydroxide (Milk Of Magnesia Liq) 30 ml PO Q12H PRN PRN Reason: Mild Constipation Bisacodyl (Dulcolax Supp) 10 mg RECTAL DAILY PRN PRN Reason: SEVERE CONSITIPATION Dextrose (D50w Vial) 50 ml IV.PUSH UNSCH PRN PRN Reason: PER HYPOGLYCEMIA PROTOCOL Diazepam (Valium) 10 mg PO TID PRN PRN Reason: Anxiety Glucagon (Glucagon Inj) 1 mg OTHER PRN PRN PRN Reason: for Hypoglycemia Protocol Heparin Sodium (Porcine) (Heparin Inj) 5,000 units SQ Q12H [facility] Sodium Chloride (Ns Inj) 1,000 mls @ 0 mls/hr IV.SIG BOLUS [facility] Last Admin: 10/27/17 12:50 Dose: 1,000 mls/hr Insulin Aspart (Novolog Insulin Correctional Sugar Inj) 0 unit SQ ACHS [facility]; Protocol Insulin Detemir (Levemir Inj) 50 unit SQ HS [facility] Lactulose (Lactulose Liq) 30 ml PO DAILY PRN PRN Reason: SEVERE CONSITIPATION Lisinopril (Prinivil) 5 mg PO DAILY [facility] Non-Formulary Medication (Fluticasone-Salmeterol [Advair Hfa]) 2 puff INHALATION BID PRN PRN Reason: Shortness Of Breath Non-Formulary Medication (Trazodone [Trazodone]) 150 mg PO HS [facility] Ondansetron HCl (Zofran Inj) 4 mg IV.PUSH Q6H PRN PRN Reason: NAUSEA OR VOMITING Pantoprazole Sodium (Protonix) 40 mg PO DAILY [facility] Pravastatin Sodium (Pravachol) 20 mg PO HS [facility] Pregabalin (Lyrica) 200 mg PO BID [facility] Senna/Docusate Sodium (Tyra-Colace) 1 tab PO BID [facility] Sennosides (Senokot) 17.2 mg PO Q12H PRN PRN Reason: Moderate Constipation Tizanidine HCl (Zanaflex) 2 mg PO BID [facility] <Caty PatelDanielaMaria Del Rosario - 10/27/17 18:07> Exam Vital signs: Vital Signs 10/27/17 18:22 10/27/17 21:15 10/27/17 23:47 Temperature 98 F 98.2 F Pulse Rate 69 66 66 Respiratory Rate 16 18 18 Blood Pressure 123/59 L 130/74 116/62 Pulse Oximetry 100 96 97 10/28/17 04:00 10/28/17 08:00 Temperature 98.1 F 97.9 F Pulse Rate 82 68 Respiratory Rate 18 18 Blood Pressure 110/61 100/61 Pulse Oximetry 97 99 Intake & Output 10/27/17 10/28/17 10/28/17 18:59 06:59 18:59 Intake Total 2310 / 2310 Output Total 30 / 30 Balance 2280 / 2280 Weight 68.039 kg 69.1 kg Intake: IV 1830 / 1830 NS Inj 1,000 ML @ Wide Open IV. 1000 / 1000 SIG BOLUS VEENA Rx#:[id number] Vancomycin Inj 1,000 MG In NS 260 / 260 Inj 250 ML @ 250 mls/hr IV.SIG Q12H [facility] Rx#:[id number] Vancomycin Inj 850 MG In NS Inj 320 / 320 250 ML @ 250 mls/hr IV.SIG Q8H [facility] Rx#:[id number] Oral 480 / 480 Output: Urine 30 / 30 Other: # Voids 1 Date of Last Bowel Movement 10/27/17 # Bowel Movements 0 Weight On Admission 69 kg <AvocaNargis M - 10/28/17 13:50> Vital Signs 10/27/17 09:06 Temperature 98.2 F Pulse Rate 73 Respiratory Rate 20 Blood Pressure 116/63 Pulse Oximetry 99 Intake & Output 10/26/17 10/27/17 10/27/17 18:59 06:59 18:59 Weight 68.039 kg <Caty PatelMaria Del Rosario - 10/27/17 18:07> Narrative: GENERAL: underweight, dishevel white male. In NAD SKIN: Warm and dry. Scalp with lesions suspicious for skin cancer/ abrasions. HEAD: Normocephalic and atraumatic. EYES: No scleral icterus. No injection or drainage. ENT: No nasal drainage noted. Airway patent. NECK: Supple, trachea midline. No palpable nodes CARDIOVASCULAR: Regular rate and rhythm without murmurs, gallops, or rubs. RESPIRATORY: Breath sounds equal bilaterally. No accessory muscle use. No wheezing/ rhonchi. ABDOMEN/GI: Abdomen soft, non-tender, bowel sounds present, no rebound, no guarding EXTREMITIES: No cyanosis or edema. L hand swollen, tight skin, edema noted from fingers to wrist. Ring finger with wounds in different stages of healing/ scabs. Palm with one main open abrasion and underline yellow skin. Two other closed abrasion noted. Tender to palpation. Fingertips with white coloration and delayed capillary refill, likely due to significant edema. Wrist marked with pen. Erythematous, and warm to touch. NEUROLOGICAL: Awake and alert. Motor and sensory grossly within normal limits. Five out of 5 muscle strength in all muscle groups. Normal speech. <Daniela Schneider V - 10/27/17 18:57> Results - Labs Result diagrams: 10/28/17 06:28 10/28/17 06:28 <Nargis Renteria - 10/28/17 13:50> Abnormal lab results 10/27/17 10/27/17 10/27/17 Range/Units 13:35 19:22 21:09 RBC 3.87 L (4.50-5.90) mil/mm3 Hct 38.2 L (39.0-51.0) % Neut % (Auto) 70.1 H (16.0-70.0) % [place] % (Auto) 9.0 H (0.0-8.0) % Sodium (136-145) meq/L Creatinine (0.60-1.30) mg/dL POC Glucose 149 H (68-110) mg/dl Random Glucose (74-106) mg/dL Calcium (8.5-10.1) mg/dL Albumin (3.4-5.0) g/dL U Benzodiazepines Scrn Pos H (Neg) Urine Cocaine Screen Pos H (Neg) 08/24/18 08/24/18 08/24/18 Range/Units 06:28 06:28 12:00 RBC 4.19 L (4.50-5.90) mil/mm3 Hct (39.0-51.0) % Neut % (Auto) (16.0-70.0) % [place] % (Auto) 9.7 H (0.0-8.0) % Sodium 135 L (136-145) meq/L Creatinine 0.54 L (0.60-1.30) mg/dL POC Glucose 157 H (68-110) mg/dl Random Glucose 126 H D (74-106) mg/dL Calcium 8.1 L D (8.5-10.1) mg/dL Albumin 2.5 L (3.4-5.0) g/dL U Benzodiazepines Scrn (Neg) Urine Cocaine Screen (Neg) Short CBC 10/27/17 10/28/17 Range/Units 13:35 06:28 WBC 6.8 7.1 (4.0-11.0) th/mm3 Hgb 13.1 14.1 (13.0-17.0) gm/dL Hct 38.2 L 41.5 (39.0-51.0) % Plt Count 175 181 (150-450) th/mm3 BMP 10/28/17 06:28 Sodium 135 L Potassium 3.5 Chloride 100 Carbon Dioxide 24.4 BUN 9 Creatinine 0.54 L Calcium 8.1 L D Liver Function 10/28/17 Range/Units 06:28 Total Bilirubin 0.3 (0.2-1.0) mg/dL AST 18 (15-37) U/L ALT 21 (12-78) U/L Alkaline Phosphatase 99 (45-117) U/L Albumin 2.5 L (3.4-5.0) g/dL <Nargis Renteria - 10/28/17 13:50> Abnormal lab results 10/27/17 10/27/17 10/27/17 Range/Units 11:35 12:20 13:35 RBC 3.87 L (4.50-5.90) mil/mm3 Hct 38.2 L (39.0-51.0) % Neut % (Auto) 70.1 H (16.0-70.0) % [place] % (Auto) 9.0 H (0.0-8.0) % Sodium 133 L (136-145) meq/L Chloride 97 L (98-107) meq/L BUN 6 L (7-18) mg/dL POC Glucose 344 H (68-110) mg/dl Random Glucose 312 H (74-106) mg/dL Short CBC 10/27/17 Range/Units 13:35 WBC 6.8 (4.0-11.0) th/mm3 Hgb 13.1 (13.0-17.0) gm/dL Hct 38.2 L (39.0-51.0) % Plt Count 175 (150-450) th/mm3 [facility] 10/27/17 12:20 Sodium 133 L Potassium 4.0 Chloride 97 L Carbon Dioxide 25.9 BUN 6 L Creatinine 0.73 Calcium 9.3 <Daniela Schneider V - 10/27/17 18:07> - Imaging Impressions Hand CT 10/27/17 13:36 CONCLUSION: 1. Diffuse nonspecific soft tissue swelling and/or edema. Findings suggest diffuse cellulitis. 2. No evidence of any loculated fluid collections to indicate a drainable abscess. 3. The bony structures are grossly intact. <Nargis Renteria - 10/28/17 13:50> Impressions Hand CT 10/27/17 13:36 CONCLUSION: 1. Diffuse nonspecific soft tissue swelling and/or edema. Findings suggest diffuse cellulitis. 2. No evidence of any loculated fluid collections to indicate a drainable abscess. 3. The bony structures are grossly intact. <Daniela Schneider V - 10/27/17 18:07> Caprini VTE Risk Assessment Caprini VTE Risk Assessment: No/Low Risk (score <= 1) <Daniela Schneider V 10/27/17 19:35> Caprini Risk Assessment Model: Point Value = 1 Point Value = 2 Point Value = 3 Point Value = 5 Age 41-60 Minor surgery BMI > 25 kg/m2 Swollen legs Varicose veins or History of unexplained or recurrent spontaneous Oral contraceptives or hormone replacement Sepsis (< 1 month) Serious lung disease, including pneumonia (< 1 month) Abnormal pulmonary function Acute myocardial infarction Congestive heart failure (< 1 month) History of inflammatory bowel disease Medical patient at bed rest Age 61-74 Arthroscopic surgery Major open surgery (> 45 min) Laparoscopic surgery (> 45 min) Malignancy Confined to bed (> 72 hours) Immobilizing plaster cast Central venous access Age >= 75 History of VTE Family history of VTE Factor V Leiden Prothrombin [id number] Lupus anticoagulant Anticardiolipin antibodies Elevated serum homocysteine Heparin-induced thrombocytopenia Other congenital or acquired thrombophilia Stroke (< 1 month) Elective arthroplasty Hip, pelvis, or leg fracture Acute spinal cord injury (< 1 month) <Nargis Renteria - 10/28/17 13:50> Point Value = 1 Point Value = 2 Point Value = 3 Point Value = 5 Age 41-60 Minor surgery BMI > 25 kg/m2 Swollen legs Varicose veins or History of unexplained or recurrent spontaneous Oral contraceptives or hormone replacement Sepsis (< 1 month) Serious lung disease, including pneumonia (< 1 month) Abnormal pulmonary function Acute myocardial infarction Congestive heart failure (< 1 month) History of inflammatory bowel disease Medical patient at bed rest Age 61-74 Arthroscopic surgery Major open surgery (> 45 min) Laparoscopic surgery (> 45 min) Malignancy Confined to bed (> 72 hours) Immobilizing plaster cast Central venous access Age >= 75 History of VTE Family history of VTE Factor V Leiden Prothrombin [id number] Lupus anticoagulant Anticardiolipin antibodies Elevated serum homocysteine Heparin-induced thrombocytopenia Other congenital or acquired thrombophilia Stroke (< 1 month) Elective arthroplasty Hip, pelvis, or leg fracture Acute spinal cord injury (< 1 month) <Daniela Schneider V - 10/27/17 18:07> Prophylaxis Regimen: Total Risk Factor Score Risk Level Prophylaxis Regimen 0-1 Low Early ambulation 2 Moderate Order ONE of the following: *Sequential Compression Device (SCD) *Heparin 5000 units SQ BID 3-4 Higher Order ONE of the following medications: *Heparin 5000 units SQ TID *Enoxaparin/Lovenox 40 mg SQ daily (WT < 150 kg, CrCl > 30 mL/min) *Enoxaparin/Lovenox 30 mg SQ daily (WT < 150 kg, CrCl > 10-29 mL/min) *Enoxaparin/Lovenox 30 mg SQ BID (WT < 150 kg, CrCl > 30 mL/min) AND/OR *Sequential Compression Device (SCD) 5 or more Highest Order ONE of the following medications: *Heparin 5000 units SQ TID (Preferred with Epidurals) *Enoxaparin/Lovenox 40 mg SQ daily (WT < 150 kg, CrCl > 30 mL/min) *Enoxaparin/Lovenox 30 mg SQ daily (WT < 150 kg, CrCl > 10-29 mL/min) *Enoxaparin/Lovenox 30 mg SQ BID (WT < 150 kg, CrCl > 30 mL/min) AND *Sequential Compression Device (SCD) <DexterNargis M - 10/28/17 13:50> Total Risk Factor Score Risk Level Prophylaxis Regimen 0-1 Low Early ambulation 2 Moderate Order ONE of the following: *Sequential Compression Device (SCD) *Heparin 5000 units SQ BID 3-4 Higher Order ONE of the following medications: *Heparin 5000 units SQ TID *Enoxaparin/Lovenox 40 mg SQ daily (WT < 150 kg, CrCl > 30 mL/min) *Enoxaparin/Lovenox 30 mg SQ daily (WT < 150 kg, CrCl > 10-29 mL/min) *Enoxaparin/Lovenox 30 mg SQ BID (WT < 150 kg, CrCl > 30 mL/min) AND/OR *Sequential Compression Device (SCD) 5 or more Highest Order ONE of the following medications: *Heparin 5000 units SQ TID (Preferred with Epidurals) *Enoxaparin/Lovenox 40 mg SQ daily (WT < 150 kg, CrCl > 30 mL/min) *Enoxaparin/Lovenox 30 mg SQ daily (WT < 150 kg, CrCl > 10-29 mL/min) *Enoxaparin/Lovenox 30 mg SQ BID (WT < 150 kg, CrCl > 30 mL/min) AND *Sequential Compression Device (SCD) <Daniela Schneider V - 10/27/17 18:07> Assessment and Plan - Assessment (1) Infection of hand Code(s): L08.9 - Local infection of the skin and subcutaneous tissue, unspecified Status: Acute (2) Failure of outpatient treatment Code(s): Z78.9 - Other specified health status Status: Acute (3) Insulin dependent diabetes mellitus Code(s): E11.9 - Type 2 diabetes mellitus without complications; 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 Status: Chronic (4) Sciatic nerve pain Code(s): M54.30 - Sciatica, unspecified side Status: Chronic (5) Chronic pain Code(s): G89.29 - Other chronic pain Status: Chronic (6) Hypertension Code(s): I10 - Essential (primary) hypertension Status: Chronic (7) Anxiety Code(s): F41.9 - Anxiety disorder, unspecified Status: Chronic (8) Drug abuse Code(s): F19.10 - Other psychoactive substance abuse, uncomplicated Status: Acute (9) COPD (chronic obstructive pulmonary disease) Code(s): J44.9 - Chronic obstructive pulmonary disease, unspecified Status: Chronic (10) Hepatitis B Code(s): B19.10 - Unspecified viral hepatitis B without hepatic coma Status: Chronic (11) Hepatitis C infection Code(s): B19.20 - Unspecified viral hepatitis C without hepatic coma Status: Chronic (12) DVT prophylaxis Status: Acute (13) Nutrition, metabolism, and development symptoms Code(s): R63.8 - Other symptoms and signs concerning food and fluid intake Status: Acute <Nargis Renteria Christofer - 10/28/17 13:50> (1) Infection of hand Code(s): L08.9 - Local infection of the skin and subcutaneous tissue, unspecified Status: Acute Plan: Pt with L hand infection since 10/22. Failed outpatient treatment with Bactrim. + MRSA cultures. S/p IV vancomycin one dose in ED 1 gr. - Pt stable, does not meet sepsis/ sirs criteria at this moment - Admit to inpatient unit for IV antibiotic treatment - CT hand: Diffuse nonspecific soft tissue swelling and/or edema, No evidence of any loculated fluid collections to indicate a drainable abscess. - Continue IV Vancomycin 1 gr q 12 hrs - Hand surgery consulted, appreciate recommendations. (2) Failure of outpatient treatment Code(s): Z78.9 - Other specified health status Status: Acute Plan: See plan above (3) Insulin dependent diabetes mellitus Code(s): E11.9 - Type 2 diabetes mellitus without complications; Z79.4 - [facility] (current) use of insulin Status: Chronic Plan: Pt's medications confirmed with pharmacy Novolog 15 U SQ before meals TID Lantus 50 U SQ HS Continue Lantus 50 U SQ HS Add Low SS insulin Diabetic diet (4) Sciatic nerve pain Code(s): M54.30 - Sciatica, unspecified side Status: Chronic Plan: - Continue home medication: Lyrica 200 mg PO BID (5) Chronic pain Code(s): G89.29 - Other chronic pain Status: Chronic Plan: Pt in significant amount of pain medications at home. E-forced and verified with pharmacy. No irregularities found. Home medication: Oxycodone 15mg QID, lyrica 200mg BID, Trazadone 150mg qHS - Pain scale : [place] 5/325 for pain 1-3, [place] 10/325 for pain 6-10 q4 PRN - Continue home trazodone and Lyrica (6) Hypertension Code(s): I10 - Essential (primary) hypertension Status: Chronic Plan: BP within normal limits on admission - Continue home medication: lisinopril 5mg po daily (7) Anxiety Code(s): F41.9 - Anxiety disorder, unspecified Status: Chronic Plan: Pt with anxiety treated with Valium at home: 10 mg PO TID PRN -Continue home dose (8) Drug abuse Code(s): F19.10 - Other psychoactive substance abuse, uncomplicated Status: Acute Plan: Cocaine abuse (inhalation) night prior to admission - Pt denies other recreation drug use - Pt denies IV drug use - UDS (9) COPD (chronic obstructive pulmonary disease) Code(s): J44.9 - Chronic obstructive pulmonary disease, unspecified Status: Chronic Plan: Pt with normal lung exam. Well controlled with home medications. Currently smokes 1-2 pack day - Continue home inhalers Symbicort 80/4.5 MCG inhaler and Advair 45/21 2 puff BID. - Nicotine patch q 24 hrs (10) Hepatitis B Code(s): B19.10 - Unspecified viral hepatitis B without hepatic coma Status: Chronic Plan: Pt states he sees a GI doctor for this. No treatment indicated at this time. - States has never done IV drug use and likely contracted disease from unprotected sex. (11) Hepatitis C infection Code(s): B19.20 - Unspecified viral hepatitis C without hepatic coma Status: Chronic Plan: Pt states he sees a GI doctor for this. No treatment indicated at this time. - States has never done IV drug use and likely contracted disease from unprotected sex. (12) DVT prophylaxis Status: Acute Plan: Possible surgical procedure tomorrow - Heparin 5,000 U q12hrs - Encourage ambulation (13) Nutrition, metabolism, and development symptoms Code(s): R63.8 - Other symptoms and signs concerning food and fluid intake Status: Acute Plan: Diet and fluids: Po intake, diabetic Electrolytes: Monitor and replace as needed Pain control: on pain scale Nausea: PRN Zofran 4mg IV PRN GI: continue home medication, pantoprazole 40mg PO daily <Daniela Schneider 10/27/17 19:36> - Assessment and Plan 57 yr old male admitted to inpatient unit for antibiotic treatment for L hand cellulitis due to failing outpatient treatment with Bactrim for 6 days. MRSA + cultures. Clinically stable. Pt discussed with Dr. Renteria <Daniela Schneider V - 10/27/17 19:35>
[2017-10-27] MEDS: Heparin - SQ 10,000 UNITS/ML Vial SQ SCH (18:10)
[2017-10-27] MEDS ORDERED: Budesonide-Formoterol 80/4.5 MCG 6.9 GM Inhaler INH PRN (18:15)
[2017-10-27] MEDS: Insulin NovoLOG Aspart Correctional Sugar Inj SQ SCH ×2 (18:21→21:44)
[2017-10-27] MEDS ORDERED: Vancomycin Consult Pharmacy OTHER PRN (19:27)
[2017-10-27 20:00] LABS: Amphetamine Screen,Urine Neg (Neg); Barbiturate Screen,Urine Neg (Neg); Cannabinoid Screen,Urine Neg (Neg); Cocaine Screen,Urine Pos (Neg)
[2017-10-27 20:04] LABS: Opiate Screen,Urine Neg (Neg)
[2017-10-27] MEDS ORDERED: Vancomycin Inj 1,000 MG in Sodium Chlor 0.9% Inj 250 ML IV.SIG SCH (21:00)
[2017-10-27] MEDS: traZODone 50 MG Tablet PO SCH (21:57)
[2017-10-27] MEDS: Insulin Detemir Inj 1,000 UNIT/10 ML Vial SQ SCH (21:59)
[2017-10-27] MEDS: Senna/Docusate Sodium 8.6/50 MG Tablet PO SCH (22:00)
[2017-10-28] MEDS: Vancomycin Inj 850 MG in Sodium Chlor 0.9% Inj 250 ML IV.SIG SCH ×3 (05:17→22:13)
[2017-10-28] MEDS: Heparin - SQ 10,000 UNITS/ML Vial SQ SCH ×2 (05:20→17:07)
[2017-10-28] MEDS: Insulin NovoLOG Aspart Correctional Sugar Inj SQ SCH ×4 (08:33→20:41)
[2017-10-28] MEDS: Lisinopril 5 MG Tablet PO SCH (08:34)
[2017-10-28] MEDS: Senna/Docusate Sodium 8.6/50 MG Tablet PO SCH ×2 (08:35→20:44)
[2017-10-28 08:57] LABS: Baso % (Auto) 0.5 % (0.0-2.0); Eos # (Auto) 0.2 th/mm3 (0.0-0.4); Eos % (Auto) 2.7 % (0.0-4.0); Hematocrit 41.5 % (39.0-51.0); Hemoglobin 14.1 gm/dL (13.0-17.0); Lymph # (Auto) 1.5 th/mm3 (1.0-4.8); Lymph % (Auto) 21.1 % (9.0-44.0); Mean Corpuscular HGB Conc 34.1 % (32.0-36.0); Mean Corpuscular Hemoglobin 33.7 pg (27.0-34.0); Mean Corpuscular Volume 98.9 fL (80.0-100.0); Mean Platelet Volume 9.2 fL (7.0-11.0); Mono # (Auto) 0.7 th/mm3 (0.0-0.9); Mono % (Auto) 9.7 % (0.0-8.0); Neut # (Auto) 4.7 th/mm3 (1.8-7.7); Platelet Count 181 th/mm3 (150-450); Red Blood Count 4.19 mil/mm3 (4.50-5.90); Red Cell Distribution Width 13.2 % (11.6-17.2); White Blood Count 7.1 th/mm3 (4.0-11.0)
[2017-10-28 09:09] LABS: Alanine Aminotransferase 21 U/L (12-78); Albumin 2.5 g/dL (3.4-5.0); Alkaline Phosphatase 99 U/L (45-117); Anion Gap 11 meq/L (5-15); Aspartate Aminotransferase 18 U/L (15-37); Blood Urea Nitrogen 9 mg/dL (7-18); Calcium 8.1 mg/dL (8.5-10.1); Carbon Dioxide 24.4 meq/L (21.0-32.0); Chloride 100 meq/L (98-107); Glomerular Filtration Rate Greater Than 89 mL/min (>89); Glucose,Random 126 mg/dL (74-106); Potassium 3.5 meq/L (3.5-5.1); Sodium 135 meq/L (136-145); Total Protein 6.7 g/dL (6.4-8.2)
--- NOTE | 2017-10-28 10:37 | P.HPFP ---
History of Present Illness Primary Care Physician: Brock Maurice DO Chief Complaint: Hand cellulitis History of Present Illness: 57 yr old male with a PMH of [place], COPD, Insulin dependent DM, and chronic pain, presenting to the ED for failing outpatient treatment of L hand cellulitis. Pt was in ED 5 days ago and was given Bactrim 800/160 mg, for cellulitis. Pt states he has been taking his antibiotics every day and has not missed a dose. Originally, the infection started on the dorsal side of his L hand, with what he thinks was a spider bite. Now, the cellulitis has spread significantly all over his hand, including hand swelling and pain. Pt describes the pain as a 10/ 10, shooting, starting in the middle of his hand, and radiating to his fingers. Cultures taken from wound on ED came back as MRSA +. A CT done of his hand did not show any abscess at that time. However today he has even more swelling and on the palmar aspect of his hand he appears to have the infection coming to a head. He actually drained his own wound on his finger and was trying to put pressure to drain his wound on his hand on the palmar aspect of his hand. However there was no drainage or pus coming out when we saw him. - Diagnosis (1) Infection of hand (2) Insulin dependent diabetes mellitus (3) Sciatic nerve pain (4) Chronic pain (5) Hypertension (6) Anxiety (7) Drug abuse (8) COPD (chronic obstructive pulmonary disease) (9) Hepatitis B (10) Hepatitis C infection (11) DVT prophylaxis (12) Nutrition, metabolism, and development symptoms Inpatient Certification: I certify that the inpatient services were ordered in accordance with Medicare regulations governing the order. This includes certification that hospital inpatient services are reasonable and necessary and in the case of services not specified as inpatient-only under 42 CFR 419.22(n), that they are appropriately provided as inpatient services in accordance to with the 2-midnight benchmark under 43 CFR 412.3(e) Estimated Total Length of Stay (Days): 3 Plans for Post Hospital Care: Home Review of Systems other (Please see the review of systems from his original history) PMFSH - History History Provided By: Patient - Medical History Medical History: Medical History (Last Reviewed 10/28/17 @ 10:13 by Cathleen Elmore) Drug abuse (Acute) Hepatitis B (Chronic) Hepatitis C infection (Chronic) Sciatic nerve pain (Chronic) Insulin dependent diabetes mellitus (Chronic) Chronic pain (Chronic) Hypertension (Chronic) Anxiety (Chronic) COPD (chronic obstructive pulmonary disease) (Chronic) MRSA (methicillin resistant Staphylococcus aureus) (Acute) Diabetes (Acute) History of ankle fracture - Surgical History Surgical History: Surgical History (Last Reviewed 10/28/17 @ 10:13 by Cathleen Elmore) History of cataract surgery - Family History Family History: Family History (Last Updated 10/27/17 @ 18:49 by Daniela Patel MD, R1) Other Family history of diabetes mellitus Family history of hypertension - Tobacco History Second Hand Smoke Exposure: Yes Tobacco Use In Past 30 Days: Yes Smoking Status: Heavy tobacco smoker Tobacco Type: Cigarettes Packs Per Day: 2 Years Smoked: 43 - Alcohol History How Often Do You Have a Drink Containing Alcohol: 2 to 4 times a month - Substance Use History Substance History: No History of Abuse - Substance Use Type Marijuana Status: Active Route Used: Inhalation Last Used: YESTERDAY Crack/Cocaine Status: Active Route Used: Inhalation Last Used: YESTERDAY - Travel History Recent Travel in the [place] Within the Last 8 Weeks: No Recent Travel Out of the Country Within the Last 8 Weeks: No - Immunization History Tetanus Immunization: <5 Years Hx Influenza Vaccine This Season: Unable to Assess Medications and Allergies Active Medications: Active Medications Hydrocodone Bitart/Acetaminophen ([place] 5/325) 1 tab PO Q4H PRN PRN Reason: pain 1-5 Hydrocodone Bitart/Acetaminophen ([place] 10/325) 1 tab PO Q4H PRN PRN Reason: PAIN 6-10 Last Admin: 10/28/17 08:34 Dose: 1 tab Al Hydroxide/Mg Hydroxide (Milk Of Neri Keith) 30 ml PO Q12H PRN PRN Reason: Mild Constipation Bisacodyl (Dulcolax Supp) 10 mg RECTAL DAILY PRN PRN Reason: SEVERE CONSITIPATION Budesonide/Formoterol Fumarate (Symbicort 80/4.5 Mcg Inh) 2 puff INH BID PRN PRN Reason: SHORTNESS OF BREATH Dextrose (D50w Vial) 50 ml IV.PUSH UNSCH PRN PRN Reason: PER HYPOGLYCEMIA PROTOCOL Diazepam (Valium) 10 mg PO TID PRN PRN Reason: Anxiety Glucagon (Glucagon Inj) 1 mg OTHER PRN PRN PRN Reason: for Hypoglycemia Protocol Heparin Sodium (Porcine) (Heparin Inj) 5,000 units SQ Q12H [facility] Last Admin: 10/28/17 05:20 Dose: 5,000 units Sodium Chloride (Ns Inj) 1,000 mls @ 0 mls/hr IV.SIG BOLUS [facility] Last Infusion: 10/27/17 19:01 Dose: Infused Vancomycin HCl 850 mg/ Sodium (Chloride) 258.5 mls @ 250 mls/hr IV.SIG Q8H [facility] Last Infusion: 10/28/17 06:42 Dose: Infused Insulin Aspart (Novolog Insulin Correctional Sugar Inj) 0 unit SQ ACHS [facility]; Protocol Last Admin: 10/28/17 08:33 Dose: Not Given Insulin Detemir (Levemir Inj) 50 unit SQ HS [facility] Last Admin: 10/27/17 21:59 Dose: 50 unit Lactulose (Lactulose Liq) 30 ml PO DAILY PRN PRN Reason: SEVERE CONSITIPATION Lisinopril (Prinivil) 5 mg PO DAILY [facility] Last Admin: 10/28/17 08:34 Dose: 5 mg Miscellaneous Information ([facility] Ordered Lab Info) 0 each OTHER ONCE ONE Stop: 10/28/17 13:46 Nicotine (Habitrol 21 Mg Patch.24 Hr) 1 patch T-DERMAL DAILY [facility] Last Admin: 10/28/17 08:34 Dose: 1 patch Ondansetron HCl (Zofran Inj) 4 mg IV.PUSH Q6H PRN PRN Reason: NAUSEA OR VOMITING Pantoprazole Sodium (Protonix) 40 mg PO DAILY [facility] Last Admin: 10/28/17 08:34 Dose: 40 mg Patch Removal (Remove Old Patch) 0 each T-DERMAL DAILY [facility] Last Admin: 10/28/17 08:35 Dose: 1 each Pharmacy Profile Note (Vancomycin Consult Pharmacy) 1 each OTHER UNSCH PRN PRN Reason: Pharmacy to dose Pravastatin Sodium (Pravachol) 20 mg PO HS [facility] Last Admin: 10/27/17 21:57 Dose: 20 mg Pregabalin (Lyrica) 200 mg PO BID [facility] Last Admin: 10/28/17 08:35 Dose: 200 mg Senna/Docusate Sodium (Tyra-Colace) 1 tab PO BID [facility] Last Admin: 10/28/17 08:35 Dose: Not Given Sennosides (Senokot) 17.2 mg PO Q12H PRN PRN Reason: Moderate Constipation Tizanidine HCl (Zanaflex) 2 mg PO BID [facility] Last Admin: 10/28/17 08:34 Dose: 2 mg Trazodone HCl (Desyrel) 150 mg PO [facility] Last Admin: 10/27/17 21:57 Dose: 150 mg Allergies Allergy/AdvReac Type Severity Reaction Status Date / Time quetiapine Allergy Unknown Psychosis Verified 10/11/17 10:14 *MDRO Multi-Drug Resistant AdvReac Unknown Chills Uncoded 10/11/17 10:14 Organism Home Medications Medication Instructions Recorded Confirmed Type clopidogrel 75 mg PO DAILY 10/11/17 10/27/17 History lisinopril 5 mg PO DAILY 10/11/17 10/27/17 History omeprazole 40 mg PO DAILY 10/11/17 10/27/17 History pregabalin [Lyrica] 200 mg PO BID 10/11/17 10/27/17 History simvastatin 10 mg PO QPM 10/11/17 10/27/17 History tizanidine 2 mg PO BID 10/11/17 10/27/17 History trazodone 150 mg PO 10/11/17 10/27/17 History aspirin 325 mg PO DAILY 10/27/17 10/27/17 History budesonide-formoterol [Symbicort] 2 puff INHALATION BID 10/27/17 10/27/17 History diazepam [Valium] 10 mg PO TID PRN 10/27/17 10/27/17 History fluticasone-salmeterol [Advair HFA] 2 puff INHALATION BID PRN 10/27/17 10/27/17 History insulin aspart U-100 [Novolog 15 unit SUB-Q TIDAC 10/27/17 10/27/17 History U-100 Insulin aspart] insulin glargine [Lantus U-100 50 unit SUB-Q 10/27/17 10/27/17 History Insulin] oxycodone 15 mg PO QID PRN 10/27/17 10/27/17 History Exam Vital signs: Vital Signs 10/27/17 18:22 10/27/17 21:15 10/27/17 23:47 Temperature 98 F 98.2 F Pulse Rate 69 66 66 Respiratory Rate 16 18 18 Blood Pressure 123/59 L 130/74 116/62 Pulse Oximetry 100 96 97 10/28/17 04:00 10/28/17 08:00 Temperature 98.1 F 97.9 F Pulse Rate 82 68 Respiratory Rate 18 18 Blood Pressure 110/61 100/61 Pulse Oximetry 97 99 Intake & Output 10/27/17 10/28/17 10/28/17 18:59 06:59 18:59 Intake Total 2310 / 2310 Output Total 30 / 30 Balance 2280 / 2280 Weight 68.039 kg 69.1 kg Intake: IV 1830 / 1830 NS Inj 1,000 ML @ Wide Open IV. 1000 / 1000 SIG BOLUS VEENA Rx#:[id number] Vancomycin Inj 1,000 MG In NS 260 / 260 Inj 250 ML @ 250 mls/hr IV.SIG Q12H [facility] Rx#:[id number] Vancomycin Inj 850 MG In NS Inj 320 / 320 250 ML @ 250 mls/hr IV.SIG Q8H [facility] Rx#:[id number] Oral 480 / 480 Output: Urine 30 / 30 Other: # Voids 1 Date of Last Bowel Movement 10/27/17 # Bowel Movements 0 Weight On Admission 69 kg Narrative: GENERAL: underweight, dishevel white male. In NAD SKIN: Warm and dry. Scalp with lesions suspicious for skin cancer/ abrasions. HEAD: Normocephalic and atraumatic. EYES: No scleral icterus. No injection or drainage. ENT: No nasal drainage noted. Airway patent. NECK: Supple, trachea midline. No palpable nodes CARDIOVASCULAR: Regular rate and rhythm without murmurs, gallops, or rubs. RESPIRATORY: Breath sounds equal bilaterally. No accessory muscle use. No wheezing/ rhonchi. ABDOMEN/GI: Abdomen soft, non-tender, bowel sounds present, no rebound, no guarding EXTREMITIES: No cyanosis or edema. L hand swollen, tight skin, edema noted from fingers to wrist. Ring finger with wounds in different stages of healing/ scabs. Palm with one main open abrasion and underlining yellow skin. area appears to be coming to a head Two other closed abrasion noted. Tender to palpation. Fingertips with white coloration and delayed capillary refill, likely due to significant edema. Wrist marked with pen. Erythematous, and warm to touch. not ischemic NEUROLOGICAL: Awake and alert. Motor and sensory grossly within normal limits. Five out of 5 muscle strength in all muscle groups. Normal speech. Results - Labs Result diagrams: 10/28/17 06:28 10/28/17 06:28 Abnormal lab results 10/27/17 10/27/17 10/27/17 Range/Units 11:35 12:20 13:35 RBC 3.87 L (4.50-5.90) mil/mm3 Hct 38.2 L (39.0-51.0) % Neut % (Auto) 70.1 H (16.0-70.0) % [place] % (Auto) 9.0 H (0.0-8.0) % Sodium 133 L (136-145) meq/L Chloride 97 L (98-107) meq/L BUN 6 L (7-18) mg/dL Creatinine (0.60-1.30) mg/dL POC Glucose 344 H (68-110) mg/dl Random Glucose 312 H (74-106) mg/dL Calcium (8.5-10.1) mg/dL Albumin (3.4-5.0) g/dL U Benzodiazepines Scrn (Neg) Urine Cocaine Screen (Neg) 10/27/17 10/27/17 10/28/17 Range/Units 19:22 21:09 06:28 RBC 4.19 L (4.50-5.90) mil/mm3 Hct (39.0-51.0) % Neut % (Auto) (16.0-70.0) % [place] % (Auto) 9.7 H (0.0-8.0) % Sodium (136-145) meq/L Chloride (98-107) meq/L BUN (7-18) mg/dL Creatinine (0.60-1.30) mg/dL POC Glucose 149 H (68-110) mg/dl Random Glucose (74-106) mg/dL Calcium (8.5-10.1) mg/dL Albumin (3.4-5.0) g/dL U Benzodiazepines Scrn Pos H (Neg) Urine Cocaine Screen Pos H (Neg) 10/28/17 Range/Units 06:28 RBC (4.50-5.90) mil/mm3 Hct (39.0-51.0) % Neut % (Auto) (16.0-70.0) % [place] % (Auto) (0.0-8.0) % Sodium 135 L (136-145) meq/L Chloride (98-107) meq/L BUN (7-18) mg/dL Creatinine 0.54 L (0.60-1.30) mg/dL POC Glucose (68-110) mg/dl Random Glucose 126 H D (74-106) mg/dL Calcium 8.1 L D (8.5-10.1) mg/dL Albumin 2.5 L (3.4-5.0) g/dL U Benzodiazepines Scrn (Neg) Urine Cocaine Screen (Neg) Short CBC 10/27/17 10/28/17 Range/Units 13:35 06:28 WBC 6.8 7.1 (4.0-11.0) th/mm3 Hgb 13.1 14.1 (13.0-17.0) gm/dL Hct 38.2 L 41.5 (39.0-51.0) % Plt Count 175 181 (150-450) th/mm3 BMP 10/27/17 10/28/17 12:20 06:28 Sodium 133 L 135 L Potassium 4.0 3.5 Chloride 97 L 100 Carbon Dioxide 25.9 24.4 BUN 6 L 9 Creatinine 0.73 0.54 L Calcium 9.3 8.1 L D Liver Function 10/28/17 Range/Units 06:28 Total Bilirubin 0.3 (0.2-1.0) mg/dL AST 18 (15-37) U/L ALT 21 (12-78) U/L Alkaline Phosphatase 99 (45-117) U/L Albumin 2.5 L (3.4-5.0) g/dL - Imaging Impressions Hand CT 10/27/17 13:36 CONCLUSION: 1. Diffuse nonspecific soft tissue swelling and/or edema. Findings suggest diffuse cellulitis. 2. No evidence of any loculated fluid collections to indicate a drainable abscess. 3. The bony structures are grossly intact. Caprini VTE Risk Assessment Caprini VTE Risk Assessment: No/Low Risk (score <= 1) Caprini Risk Assessment Model: Point Value = 1 Point Value = 2 Point Value = 3 Point Value = 5 Age 41-60 Minor surgery BMI > 25 kg/m2 Swollen legs Varicose veins or History of unexplained or recurrent spontaneous Oral contraceptives or hormone replacement Sepsis (< 1 month) Serious lung disease, including pneumonia (< 1 month) Abnormal pulmonary function Acute myocardial infarction Congestive heart failure (< 1 month) History of inflammatory bowel disease Medical patient at bed rest Age 61-74 Arthroscopic surgery Major open surgery (> 45 min) Laparoscopic surgery (> 45 min) Malignancy Confined to bed (> 72 hours) Immobilizing plaster cast Central venous access Age >= 75 History of VTE Family history of VTE Factor V Leiden Prothrombin [id number] Lupus anticoagulant Anticardiolipin antibodies Elevated serum homocysteine Heparin-induced thrombocytopenia Other congenital or acquired thrombophilia Stroke (< 1 month) Elective arthroplasty Hip, pelvis, or leg fracture Acute spinal cord injury (< 1 month) Prophylaxis Regimen: Total Risk Factor Score Risk Level Prophylaxis Regimen 0-1 Low Early ambulation 2 Moderate Order ONE of the following: *Sequential Compression Device (SCD) *Heparin 5000 units SQ BID 3-4 Higher Order ONE of the following medications: *Heparin 5000 units SQ TID *Enoxaparin/Lovenox 40 mg SQ daily (WT < 150 kg, CrCl > 30 mL/min) *Enoxaparin/Lovenox 30 mg SQ daily (WT < 150 kg, CrCl > 10-29 mL/min) *Enoxaparin/Lovenox 30 mg SQ BID (WT < 150 kg, CrCl > 30 mL/min) AND/OR *Sequential Compression Device (SCD) 5 or more Highest Order ONE of the following medications: *Heparin 5000 units SQ TID (Preferred with Epidurals) *Enoxaparin/Lovenox 40 mg SQ daily (WT < 150 kg, CrCl > 30 mL/min) *Enoxaparin/Lovenox 30 mg SQ daily (WT < 150 kg, CrCl > 10-29 mL/min) *Enoxaparin/Lovenox 30 mg SQ BID (WT < 150 kg, CrCl > 30 mL/min) AND *Sequential Compression Device (SCD) Assessment and Plan - Assessment (1) Infection of hand Code(s): L08.9 - Local infection of the skin and subcutaneous tissue, unspecified Status: Acute Plan: Pt with L hand infection since 10/22. Failed outpatient treatment with Bactrim. + MRSA cultures. S/p IV vancomycin one dose in ED 1 gr. - Pt stable, does not meet sepsis/ sirs criteria at this moment - Admit to inpatient unit for IV antibiotic treatment - CT hand: Diffuse nonspecific soft tissue swelling and/or edema, No evidence of any loculated fluid collections to indicate a drainable abscess. - Continue IV Vancomycin 1 gr q 12 hrs - Hand surgery consulted, appreciate recommendations. Suspect he will need I&D (2) Insulin dependent diabetes mellitus Code(s): E11.9 - Type 2 diabetes mellitus without complications; Z79.4 - [facility] (current) use of insulin Status: Chronic Plan: Pt's medications confirmed with pharmacy Novolog 15 U SQ before meals TID Lantus 50 U SQ HS Continue Lantus 50 U SQ HS Add Low SS insulin Diabetic diet He reports that he was started on insulin by the emergency department and his current physician does not really use or understand diabetic treatment. He is considering and was strongly encouraged to get a primary care physician who could help treat his diabetes. (3) Sciatic nerve pain Code(s): M54.30 - Sciatica, unspecified side Status: Chronic Plan: - Continue home medication: Lyrica 200 mg PO BID (4) Chronic pain Code(s): G89.29 - Other chronic pain Status: Chronic Plan: Pt in significant amount of pain medications at home. E-forced and verified with pharmacy. No irregularities found. Home medication: Oxycodone 15mg QID, lyrica 200mg BID, Trazadone 150mg qHS - Pain scale : [place] 5/325 for pain 1-3, [place] 10/325 for pain 6-10 q4 PRN - Continue home trazodone and Lyrica (5) Hypertension Code(s): I10 - Essential (primary) hypertension Status: Chronic Plan: BP within normal limits on admission - Continue home medication: lisinopril 5mg po daily (6) Anxiety Code(s): F41.9 - Anxiety disorder, unspecified Status: Chronic Plan: Pt with anxiety treated with Valium at home: 10 mg PO TID PRN -Continue home dose (7) Drug abuse Code(s): F19.10 - Other psychoactive substance abuse, uncomplicated Status: Acute Plan: Cocaine abuse (inhalation) night prior to admission - Pt denies other recreation drug use - Pt denies IV drug use Discussed that his drug abuse can contribute to coronary disease and multiple other health problems. At the time that we were talking about it he dismissed it as being a 1 off event. He did not seem open to any discussion about quitting his drug use and in fact seem to imply that he used cocaine because it would be in out of her system faster and other drugs which show up on a drug test. - UDS (8) COPD (chronic obstructive pulmonary disease) Code(s): J44.9 - Chronic obstructive pulmonary disease, unspecified Status: Chronic Plan: Pt with normal lung exam. Well controlled with home medications. Currently smokes 1-2 pack day - Continue home inhalers Symbicort 80/4.5 MCG inhaler and Advair 45/21 2 puff BID. - Nicotine patch q 24 hrs (9) Hepatitis B Code(s): B19.10 - Unspecified viral hepatitis B without hepatic coma Status: Chronic Plan: Pt states he sees a GI doctor for this. No treatment indicated at this time. - States has never done IV drug use and likely contracted disease from unprotected sex. (10) Hepatitis C infection Code(s): B19.20 - Unspecified viral hepatitis C without hepatic coma Status: Chronic Plan: Pt states he sees a GI doctor for this. No treatment indicated at this time. - States has never done IV drug use and likely contracted disease from unprotected sex. (11) DVT prophylaxis Status: Acute Plan: Possible surgical procedure tomorrow - Heparin 5,000 U q12hrs - Encourage ambulation (12) Nutrition, metabolism, and development symptoms Code(s): R63.8 - Other symptoms and signs concerning food and fluid intake Status: Acute Plan: Diet and fluids: Po intake, diabetic Electrolytes: Monitor and replace as needed Pain control: on pain scale Nausea: PRN Zofran 4mg IV PRN GI: continue home medication, pantoprazole 40mg PO daily - Assessment and Plan 57 yr old male admitted to inpatient unit for antibiotic treatment for L hand cellulitis due to failing outpatient treatment with Bactrim for 6 days. MRSA + cultures. Clinically stable. Pt discussed with Dr. Renteria H&P: Quality - VTE Deep Vein Thrombosis/Pulmonary Embolism Present on Admission: No (4) Chronic pain Qualifiers: Chronic pain type: chronic pain syndrome Qualified Code(s): G89.4 - Chronic pain syndrome (5) Hypertension Qualifiers: Hypertension type: essential hypertension Qualified Code(s): I10 - Essential (primary) hypertension (8) COPD (chronic obstructive pulmonary disease) Qualifiers: COPD type: unspecified COPD Qualified Code(s): J44.9 - Chronic obstructive pulmonary disease, unspecified (9) Hepatitis B Qualifiers: Viral hepatitis chronicity: unspecified Hepatic coma status: without hepatic coma (10) Hepatitis C infection Qualifiers: Viral hepatitis chronicity: unspecified Hepatic coma status: without hepatic coma Qualified Code(s): B19.20 - Unspecified viral hepatitis C without hepatic coma
[2017-10-28] MEDS ORDERED: Pharmacy Ordered Lab Info OTHER ONE (13:45)
[2017-10-28] MEDS: Insulin Detemir Inj 1,000 UNIT/10 ML Vial SQ SCH (20:40)
[2017-10-28] MEDS: traZODone 50 MG Tablet PO SCH (20:42)
[2017-10-29] MEDS: Vancomycin Inj 850 MG in Sodium Chlor 0.9% Inj 250 ML IV.SIG SCH (05:17)
[2017-10-29] MEDS: Heparin - SQ 10,000 UNITS/ML Vial SQ SCH ×2 (05:17→17:09)
[2017-10-29] MEDS ORDERED: Pharmacy Ordered Lab Info OTHER ONE ×2 (05:45→13:45)
[2017-10-29 08:19] LABS: Baso % (Auto) 0.6 % (0.0-2.0); Eos # (Auto) 0.1 th/mm3 (0.0-0.4); Eos % (Auto) 1.6 % (0.0-4.0); Hematocrit 39.6 % (39.0-51.0); Hemoglobin 13.9 gm/dL (13.0-17.0); Lymph # (Auto) 1.3 th/mm3 (1.0-4.8); Lymph % (Auto) 18.6 % (9.0-44.0); Mean Corpuscular Hemoglobin 34.2 pg (27.0-34.0); Mean Corpuscular Volume 97.7 fL (80.0-100.0); Mean Platelet Volume 8.8 fL (7.0-11.0); Mono # (Auto) 0.5 th/mm3 (0.0-0.9); Mono % (Auto) 7.7 % (0.0-8.0); Neut # (Auto) 5.1 th/mm3 (1.8-7.7); Neut % (Auto) 71.5 % (16.0-70.0); Platelet Count 192 th/mm3 (150-450); Red Blood Count 4.05 mil/mm3 (4.50-5.90); Red Cell Distribution Width 13.1 % (11.6-17.2); White Blood Count 7.1 th/mm3 (4.0-11.0)
[2017-10-29 08:34] LABS: Anion Gap 9 meq/L (5-15); Blood Urea Nitrogen 8 mg/dL (7-18); Calcium 8.4 mg/dL (8.5-10.1); Carbon Dioxide 27.2 meq/L (21.0-32.0); Chloride 102 meq/L (98-107); Glomerular Filtration Rate Greater Than 89 mL/min (>89); Glucose,Random 64 mg/dL (74-106); Potassium 3.5 meq/L (3.5-5.1); Sodium 138 meq/L (136-145)
[2017-10-29 08:36] LABS: Vancomycin,Trough 25.6 mcg/mL (5.0-10.0)
[2017-10-29] MEDS: Insulin NovoLOG Aspart Correctional Sugar Inj SQ SCH ×4 (08:46→21:32)
[2017-10-29] MEDS: Lisinopril 5 MG Tablet PO SCH (09:38)
[2017-10-29] MEDS: Senna/Docusate Sodium 8.6/50 MG Tablet PO SCH ×2 (09:38→21:30)
[2017-10-29 10:09] LABS: Lymphocytes 13 % (9-44); Metamyelocytes 1 % (0-1); Monocytes 9 % (0-8); Myelocytes 2 % (0-0); Platelet Estimate Normal (Normal); Platelet Morphology Normal (Normal)
--- NOTE | 2017-10-29 13:48 | P.PNFP ---
Subjective Interval history: Patient is due as well this morning, he is up and walking. She stated that last night he said hand wound open and draining past he was able to pull through substance glue like, yellowish colored, likely pus. He states his pain is better control, and the swelling in his hand has slightly improved. He is able to move his hand better. However the skin is now more open and exposed. He states the hand surgeon stopped by yesterday and said the more likely will not do any operations at this time. He denies any fevers, chills, shortness of breath, chest pain. Advised patient of very contagious infection in his hand and to please do not spread to other places. Patient was walking around getting his own supplies for wound care. Patient states nicotine patches are working very well, and reiterated that he has not been drinking more than just one beer before admission. Due to tremors noted on exam this question was asked several times. Patient denies heavy drinking. <Daniela Schneider V - 10/29/17 13:47> Results - Labs Result diagrams: 10/29/17 06:34 10/30/17 10:29 <Nargis Renteria - 10/30/17 14:01> Abnormal lab results 10/29/17 10/29/17 10/30/17 Range/Units 16:56 20:30 10:29 Creatinine 0.57 L (0.60-1.30) mg/dL POC Glucose 205 H 161 H (68-110) mg/dl Random Glucose 135 H (74-106) mg/dL 10/30/17 Range/Units 12:19 Creatinine (0.60-1.30) mg/dL POC Glucose 179 H (68-110) mg/dl Random Glucose (74-106) mg/dL BMP 10/30/17 10:29 Sodium 139 Potassium 4.3 D Chloride 101 Carbon Dioxide 29.5 BUN 7 Creatinine 0.57 L Calcium 8.6 <Nargis Renteria - 10/30/17 14:01> Abnormal lab results 10/28/17 10/28/17 10/29/17 Range/Units 16:40 19:12 06:34 RBC 4.05 L (4.50-5.90) mil/mm3 MCH 34.2 H (27.0-34.0) pg Neut % (Auto) 71.5 H (16.0-70.0) % Band Neuts % (Manual) 7 H (0-6) % Monocytes % (Manual) 9 H (0-8) % Myelocytes % (Man) 2 H (0-0) % Creatinine (0.60-1.30) mg/dL POC Glucose 123 H 205 H (68-110) mg/dl Random Glucose (74-106) mg/dL Calcium (8.5-10.1) mg/dL Vancomycin Trough (5.0-10.0) mcg/mL 10/29/17 10/29/17 10/29/17 Range/Units 08:01 08:17 08:28 RBC (4.50-5.90) mil/mm3 MCH (27.0-34.0) pg Neut % (Auto) (16.0-70.0) % Band Neuts % (Manual) (0-6) % Monocytes % (Manual) (0-8) % Myelocytes % (Man) (0-0) % Creatinine (0.60-1.30) mg/dL POC Glucose 65 L 66 L 130 H (68-110) mg/dl Random Glucose (74-106) mg/dL Calcium (8.5-10.1) mg/dL Vancomycin Trough (5.0-10.0) mcg/mL 10/29/17 10/29/17 Range/Units 11:00 12:10 RBC (4.50-5.90) mil/mm3 MCH (27.0-34.0) pg Neut % (Auto) (16.0-70.0) % Band Neuts % (Manual) (0-6) % Monocytes % (Manual) (0-8) % Myelocytes % (Man) (0-0) % Creatinine 0.57 L (0.60-1.30) mg/dL POC Glucose 171 H (68-110) mg/dl Random Glucose 64 L (74-106) mg/dL Calcium 8.4 L (8.5-10.1) mg/dL Vancomycin Trough 25.6 H (5.0-10.0) mcg/mL Short CBC 10/29/17 Range/Units 06:34 WBC 7.1 (4.0-11.0) th/mm3 Hgb 13.9 (13.0-17.0) gm/dL Hct 39.6 (39.0-51.0) % Plt Count 192 (150-450) th/mm3 BMP 10/29/17 11:00 Sodium 138 Potassium 3.5 Chloride 102 Carbon Dioxide 27.2 BUN 8 Creatinine 0.57 L Calcium 8.4 L <Daniela Schneider V - 10/29/17 13:47> Physical Exam Vital signs: Vital Signs 10/29/17 16:00 10/29/17 20:00 10/29/17 23:25 Temperature 98.2 F 98.5 F 98.2 F Pulse Rate 72 75 76 Respiratory Rate 18 16 18 Blood Pressure 158/74 H 115/72 124/68 Pulse Oximetry 100 100 99 10/30/17 00:00 10/30/17 03:59 10/30/17 08:00 Temperature 97.9 F 97.8 F Pulse Rate 69 63 Respiratory Rate 18 16 18 Blood Pressure 119/71 108/55 L Pulse Oximetry 100 99 Intake & Output 10/29/17 10/30/17 10/30/17 18:59 06:59 18:59 Intake Total 982.5 / 982.5 265 / 265 Output Total 1000 / 1000 Balance -17.5 / -17.5 265 / 265 Weight 72.4 kg Intake: IV 262.5 / 262.5 265 / 265 Vancomycin Inj 1,250 MG In NS 262.5 / 262.5 265 / 265 Inj 250 ML @ 250 mls/hr IV.SIG Q12H VEENA Rx#:[id number] Oral 720 / 720 Output: Urine 1000 / 1000 Other: # Voids 2 Date of Last Bowel Movement 10/28/17 10/30/17 # Bowel Movements 1 <Nargis Renteria M - 10/30/17 14:01> Vital Signs 10/28/17 16:00 10/28/17 20:00 10/29/17 00:00 Temperature 97.9 F 98.5 F 98 F Pulse Rate 70 77 77 Respiratory Rate 18 20 14 Blood Pressure 134/62 142/66 H 126/72 Pulse Oximetry 99 96 99 10/29/17 04:00 10/29/17 08:00 10/29/17 12:00 Temperature 98.3 F 97.5 F L 97.2 F L Pulse Rate 86 73 85 Respiratory Rate 18 18 18 Blood Pressure 127/76 124/58 L 121/63 Pulse Oximetry 99 100 99 Intake & Output 10/28/17 10/29/17 10/29/17 18:59 06:59 18:59 Intake Total 858.5 / 858.5 585 / 585 Balance 858.5 / 858.5 585 / 585 Weight 72.7 kg Intake: IV 258.5 / 258.5 585 / 585 Vancomycin Inj 850 MG In NS Inj 258.5 / 258.5 585 / 585 250 ML @ 250 mls/hr IV.SIG Q8H VEENA Rx#:[id number] Oral 600 / 600 Other: # Voids 3 2 Date of Last Bowel Movement 10/28/17 <Caty PatelDaniela Mckeon - 10/29/17 13:47> Narrative: GENERAL: underweight, dishevel white male. In NAD, walking and talking. SKIN: Warm and dry. Scalp with lesions suspicious for skin cancer/ abrasions. HEAD: Normocephalic and atraumatic. EYES: No scleral icterus. No injection or drainage. ENT: No nasal drainage noted. Airway patent. CARDIOVASCULAR: Regular rate and rhythm without murmurs, gallops, or rubs. RESPIRATORY: Breath sounds equal bilaterally. No accessory muscle use. No wheezing/ rhonchi. ABDOMEN/GI: Abdomen soft, non-tender, bowel sounds present, no rebound, no guarding EXTREMITIES: No cyanosis or edema. L hand swollen, tight skin, edema noted from fingers to wrist. Ring finger with wounds in different stages of healing/ scabs. Palm with one main open abrasion, raw skin area of about 5cm by 4cm, with open punctuate wound draining yellow/clear fluid. Two other closed abrasion noted. Tender to palpation. Fingertips with white decoloration and delayed capillary refill, likely due to significant edema. Improved erythema and warm to touch. NEUROLOGICAL: Bilateral mild tremors noted on upper extremities. Awake and alert. Motor and sensory grossly within normal limits. Normal speech. <Caty PatelDaniela Mckeon - 10/29/17 13:47> Assessment and Plan - Assessment (1) Infection of hand Code(s): L08.9 - Local infection of the skin and subcutaneous tissue, unspecified Status: Acute (2) Insulin dependent diabetes mellitus Code(s): E11.9 - Type 2 diabetes mellitus without complications; Z79.4 - technician terminal and repeater (current) use of insulin Status: Chronic (3) Sciatic nerve pain Code(s): M54.30 - Sciatica, unspecified side Status: Chronic (4) Chronic pain Code(s): G89.29 - Other chronic pain Status: Chronic (5) Hypertension Code(s): I10 - Essential (primary) hypertension Status: Chronic (6) Anxiety Code(s): F41.9 - Anxiety disorder, unspecified Status: Chronic (7) Drug abuse Code(s): F19.10 - Other psychoactive substance abuse, uncomplicated Status: Acute (8) COPD (chronic obstructive pulmonary disease) Code(s): J44.9 - Chronic obstructive pulmonary disease, unspecified Status: Chronic (9) Hepatitis B Code(s): B19.10 - Unspecified viral hepatitis B without hepatic coma Status: Chronic (10) Hepatitis C infection Code(s): B19.20 - Unspecified viral hepatitis C without hepatic coma Status: Chronic (11) Nutrition, metabolism, and development symptoms Code(s): R63.8 - Other symptoms and signs concerning food and fluid intake Status: Acute (12) DVT prophylaxis Status: Acute <Nargis Renteria Christofer - 10/30/17 14:01> (1) Infection of hand Code(s): L08.9 - Local infection of the skin and subcutaneous tissue, unspecified Status: Acute Plan: Pt with L hand infection since 10/22. Failed outpatient treatment with Bactrim. + MRSA cultures. S/p IV vancomycin one dose in ED 1 gr. - Pt stable, does not meet sepsis/ sirs criteria at this moment - Admit to inpatient unit for IV antibiotic treatment - CT hand: Diffuse nonspecific soft tissue swelling and/or edema, No evidence of any loculated fluid collections to indicate a drainable abscess. 10/29: Hand surgery following, no report yet. According to patient they are not planning on operating. - Continue IV Vancomycin 850mg q8hrs Pharmacy following and adjusting dose. - Hand surgery consulted, appreciate recommendations. (2) Insulin dependent diabetes mellitus Code(s): E11.9 - Type 2 diabetes mellitus without complications; Z79.4 - USP (current) use of insulin Status: Chronic Plan: Pt's medications confirmed with pharmacy Novolog 15 U SQ before meals TID Lantus 50 U SQ HS Continue Lantus 50 U SQ HS Continue Low SS insulin Diabetic diet (3) Sciatic nerve pain Code(s): M54.30 - Sciatica, unspecified side Status: Chronic Plan: - Continue home medication: Lyrica 200 mg PO BID (4) Chronic pain Code(s): G89.29 - Other chronic pain Status: Chronic Plan: Pt in significant amount of pain medications at home. E-forced and verified with pharmacy. No irregularities found. Home medication: Oxycodone 15mg QID, lyrica 200mg BID, Trazadone 150mg qHS - Pain scale : [place] 5/325 for pain 1-3, [place] 10/325 for pain 6-10 q4 PRN - Continue home trazodone and Lyrica (5) Hypertension Code(s): I10 - Essential (primary) hypertension Status: Chronic Plan: BP within normal limits on admission - Continue home medication: lisinopril 5mg po daily (6) Anxiety Code(s): F41.9 - Anxiety disorder, unspecified Status: Chronic Plan: Pt with anxiety treated with Valium at home: 10 mg PO TID PRN -Continue home dose (7) Drug abuse Code(s): F19.10 - Other psychoactive substance abuse, uncomplicated Status: Acute Plan: Cocaine abuse (inhalation) night prior to admission - Pt denies other recreation drug use - Pt denies IV drug use - UDS Positive for Cocaine and Benzos (8) COPD (chronic obstructive pulmonary disease) Code(s): J44.9 - Chronic obstructive pulmonary disease, unspecified Status: Chronic Plan: Pt with normal lung exam. Well controlled with home medications. Currently smokes 1-2 pack day - Continue home inhalers Symbicort 80/4.5 MCG inhaler and Advair 45/21 2 puff BID. - Nicotine patch q 24 hrs (9) Hepatitis B Code(s): B19.10 - Unspecified viral hepatitis B without hepatic coma Status: Chronic Plan: Pt states he sees a GI doctor for this. No treatment indicated at this time. - States has never done IV drug use and likely contracted disease from unprotected sex. (10) Hepatitis C infection Code(s): B19.20 - Unspecified viral hepatitis C without hepatic coma Status: Chronic Plan: Pt states he sees a GI doctor for this. No treatment indicated at this time. - States has never done IV drug use and likely contracted disease from unprotected sex. (11) DVT prophylaxis Status: Acute Plan: Possible surgical procedure tomorrow - Heparin 5,000 U q12hrs - Encourage ambulation (12) Nutrition, metabolism, and development symptoms Code(s): R63.8 - Other symptoms and signs concerning food and fluid intake Status: Acute Plan: Diet and fluids: Po intake, diabetic Electrolytes: Monitor and replace as needed Pain control: on pain scale Nausea: PRN Zofran 4mg IV PRN GI: continue home medication, pantoprazole 40mg PO daily <Daniela Schneider V - 10/29/17 13:33> - Assessment and Plan 57 yr old male admitted to inpatient unit for antibiotic treatment for L hand cellulitis due to failing outpatient treatment with Bactrim for 6 days. MRSA + cultures. Clinically stable. Hand surgery consulted and following. Pt discussed with Dr. Renteria <Daniela Schneider V - 10/29/17 13:47> - Attending Attestation The exam, history, and the medical decision-making described in the above note were completed with the assistance of the resident physician. I reviewed and agree with the findings presented. I attest that I had a [id number] encounter with the patient on the same day, and personally performed and documented my assessment and findings in the medical record. This patient denies exactly what he wants and he attempts to poke and prod in his various wounds to try to remove skin and do other minor procedures on himself. When we first saw him he was not in the room because he was returning from the equipment closet with an armful of the bandages and other implements. He evidently had already poked himself with scissors to try to drain his hand. He reports being seen by the hand surgeon and that surgery is not required. We discouraged him from attempting to do minor surgeries on himself. <Nargis Renteria - 10/30/17 14:01> <Daniela Schneider V - Last Filed: 10/29/17 13:33> (4) Chronic pain Qualifiers: Chronic pain type: chronic pain syndrome Qualified Code(s): G89.4 - Chronic pain syndrome (5) Hypertension Qualifiers: Hypertension type: essential hypertension Qualified Code(s): I10 - Essential (primary) hypertension (8) COPD (chronic obstructive pulmonary disease) Qualifiers: COPD type: unspecified COPD Qualified Code(s): J44.9 - Chronic obstructive pulmonary disease, unspecified (9) Hepatitis B Qualifiers: Viral hepatitis chronicity: unspecified Hepatic coma status: without hepatic coma (10) Hepatitis C infection Qualifiers: Viral hepatitis chronicity: unspecified Hepatic coma status: without hepatic coma Qualified Code(s): B19.20 - Unspecified viral hepatitis C without hepatic coma <Nargis Renteria M - Last Filed: 10/30/17 14:01> (4) Chronic pain Qualifiers: Chronic pain type: chronic pain syndrome Qualified Code(s): G89.4 - Chronic pain syndrome (5) Hypertension Qualifiers: Hypertension type: essential hypertension Qualified Code(s): I10 - Essential (primary) hypertension (8) COPD (chronic obstructive pulmonary disease) Qualifiers: COPD type: unspecified COPD Qualified Code(s): J44.9 - Chronic obstructive pulmonary disease, unspecified (9) Hepatitis B Qualifiers: Viral hepatitis chronicity: unspecified Hepatic coma status: without hepatic coma (10) Hepatitis C infection Qualifiers: Viral hepatitis chronicity: unspecified Hepatic coma status: without hepatic coma Qualified Code(s): B19.20 - Unspecified viral hepatitis C without hepatic coma <Daniela Schneider V - Last Filed: 10/29/17 13:33> (4) Chronic pain Qualifiers: Chronic pain type: chronic pain syndrome Qualified Code(s): G89.4 - Chronic pain syndrome (5) Hypertension Qualifiers: Hypertension type: essential hypertension Qualified Code(s): I10 - Essential (primary) hypertension (8) COPD (chronic obstructive pulmonary disease) Qualifiers: COPD type: unspecified COPD Qualified Code(s): J44.9 - Chronic obstructive pulmonary disease, unspecified (9) Hepatitis B Qualifiers: Viral hepatitis chronicity: unspecified Hepatic coma status: without hepatic coma (10) Hepatitis C infection Qualifiers: Viral hepatitis chronicity: unspecified Hepatic coma status: without hepatic coma Qualified Code(s): B19.20 - Unspecified viral hepatitis C without hepatic coma <Nargis Renteria M - Last Filed: 10/30/17 14:01> (4) Chronic pain Qualifiers: Chronic pain type: chronic pain syndrome Qualified Code(s): G89.4 - Chronic pain syndrome (5) Hypertension Qualifiers: Hypertension type: essential hypertension Qualified Code(s): I10 - Essential (primary) hypertension (8) COPD (chronic obstructive pulmonary disease) Qualifiers: COPD type: unspecified COPD Qualified Code(s): J44.9 - Chronic obstructive pulmonary disease, unspecified (9) Hepatitis B Qualifiers: Viral hepatitis chronicity: unspecified Hepatic coma status: without hepatic coma (10) Hepatitis C infection Qualifiers: Viral hepatitis chronicity: unspecified Hepatic coma status: without hepatic coma Qualified Code(s): B19.20 - Unspecified viral hepatitis C without hepatic coma
[2017-10-29] MEDS: Vancomycin Inj 1,250 MG in Sodium Chlor 0.9% Inj 250 ML IV.SIG SCH (16:38)
--- NOTE | 2017-10-29 17:15 | P.CON ---
History of Present Illness Service: Hand surgery Consult date: 10/29/17 Primary Care Provider: Brock Maurice DO Family Provider: Brock Maurice DO Chief Complaint: Hand cellulitis History of Present Illness: History obtained from chart and patient is patient is poor historian 57 yr old male with a PMH of [place], COPD, Insulin dependent DM, and chronic pain, presenting to the ED for failing outpatient treatment of L hand cellulitis. Pt was in ED over 5 days ago and was given Bactrim 800/160 mg, for cellulitis. Pt states he has been taking his antibiotics every day and has not missed a dose. Originally, the infection started on the dorsal side of his L hand, with what he thinks was a spider bite. Now, the cellulitis has spread significantly all over his hand, including hand swelling and pain. Pt describes the pain as a 10/ 10, shooting, starting in the middle of his hand, and radiating to his fingers. Cultures taken from wound on ED came back as MRSA +. A CT done of his hand did not show any abscess at that time. Patient reported mild dorsal hand pain, associated with the wound. Except as noted in the HPI review of systems and family history noncontributory to presenting complaint Medication list reviewed - History History Provided By: Patient - Medical History Medical History: Medical History (Last Reviewed 10/28/17 @ 10:13 by Cathleen Elmore) Drug abuse (Acute) Hepatitis B (Chronic) Hepatitis C infection (Chronic) Sciatic nerve pain (Chronic) Insulin dependent diabetes mellitus (Chronic) Chronic pain (Chronic) Hypertension (Chronic) Anxiety (Chronic) COPD (chronic obstructive pulmonary disease) (Chronic) MRSA (methicillin resistant Staphylococcus aureus) (Acute) Diabetes (Acute) History of ankle fracture - Surgical History Surgical History: Surgical History (Last Reviewed 10/28/17 @ 10:13 by Cathleen Elmore) History of cataract surgery - Family History Family History: Family History (Last Updated 10/27/17 @ 18:49 by Daniela Patel MD, R1) Other Family history of diabetes mellitus Family history of hypertension - Tobacco History Second Hand Smoke Exposure: Yes Tobacco Use In Past 30 Days: Yes Smoking Status: Heavy tobacco smoker Tobacco Type: Cigarettes Packs Per Day: 2 Years Smoked: 43 - Alcohol History How Often Do You Have a Drink Containing Alcohol: 2 to 4 times a month - Substance Use History Substance History: No History of Abuse - Substance Use Type Marijuana Status: Active Route Used: Inhalation Last Used: YESTERDAY Crack/Cocaine Status: Active Route Used: Inhalation Last Used: YESTERDAY PMFSH - History History Provided By: Patient - Medical History Medical History: Medical History (Last Reviewed 10/28/17 @ 10:13 by Cathleen Elmore) Drug abuse (Acute) Hepatitis B (Chronic) Hepatitis C infection (Chronic) Sciatic nerve pain (Chronic) Insulin dependent diabetes mellitus (Chronic) Chronic pain (Chronic) Hypertension (Chronic) Anxiety (Chronic) COPD (chronic obstructive pulmonary disease) (Chronic) MRSA (methicillin resistant Staphylococcus aureus) (Acute) Diabetes (Acute) History of ankle fracture - Surgical History Surgical History: Surgical History (Last Reviewed 10/28/17 @ 10:13 by Cathleen Elmore) History of cataract surgery - Family History Family History: Family History (Last Updated 10/27/17 @ 18:49 by Daniela Patel MD, R1) Other Family history of diabetes mellitus Family history of hypertension - Tobacco History Second Hand Smoke Exposure: Yes Tobacco Use In Past 30 Days: Yes Smoking Status: Heavy tobacco smoker Tobacco Type: Cigarettes Packs Per Day: 2 Years Smoked: 43 - Alcohol History How Often Do You Have a Drink Containing Alcohol: 2 to 4 times a month - Substance Use History Substance History: No History of Abuse - Substance Use Type Marijuana Status: Active Route Used: Inhalation Last Used: YESTERDAY Crack/Cocaine Status: Active Route Used: Inhalation Last Used: YESTERDAY - Travel History Recent Travel in the [place] Within the Last 8 Weeks: No Recent Travel Out of the Country Within the Last 8 Weeks: No - Immunization History Tetanus Immunization: <5 Years Hx Influenza Vaccine This Season: Unable to Assess Medications and Allergies Active Medications: Active Medications Hydrocodone Bitart/Acetaminophen ([place] 5/325) 1 tab PO Q6H PRN PRN Reason: PAIN SCALE 6 TO 10 Last Admin: 10/29/17 03:25 Dose: 1 tab Al Hydroxide/Mg Hydroxide (Milk Of Magncarly Liq) 30 ml PO Q12H PRN PRN Reason: Mild Constipation Bisacodyl (Dulcolax Supp) 10 mg RECTAL DAILY PRN PRN Reason: SEVERE CONSITIPATION Budesonide/Formoterol Fumarate (Symbicort 80/4.5 Mcg Inh) 2 puff INH BID PRN PRN Reason: SHORTNESS OF BREATH Dextrose (D50w Vial) 50 ml IV.PUSH UNSCH PRN PRN Reason: PER HYPOGLYCEMIA PROTOCOL Last Admin: 10/29/17 08:26 Dose: 50 ml Diazepam (Valium) 10 mg PO TID PRN PRN Reason: Anxiety Glucagon (Glucagon Inj) 1 mg OTHER PRN PRN PRN Reason: for Hypoglycemia Protocol Heparin Sodium (Porcine) (Heparin Inj) 5,000 units SQ Q12H [facility] Last Admin: 10/29/17 17:09 Dose: 5,000 units Sodium Chloride (Ns Inj) 1,000 mls @ 0 mls/hr IV.SIG BOLUS [facility] Last Infusion: 10/27/17 19:01 Dose: Infused Vancomycin HCl 1,250 mg/ (Sodium Chloride) 262.5 mls @ 250 mls/hr IV.SIG Q12H [facility] Last Admin: 10/29/17 16:38 Dose: 250 mls/hr Insulin Aspart (Novolog Insulin Correctional Sugar Inj) 0 unit SQ ACHS [facility]; Protocol Last Admin: 10/29/17 17:09 Dose: 3 unit Insulin Detemir (Levemir Inj) 50 unit SQ HS [facility] Last Admin: 10/28/17 20:40 Dose: 50 unit Lactulose (Lactulose Liq) 30 ml PO DAILY PRN PRN Reason: SEVERE CONSITIPATION Lisinopril (Prinivil) 5 mg PO DAILY [facility] Last Admin: 10/29/17 09:38 Dose: 5 mg Miscellaneous Information ([facility] [place] [facility] Ordered Lab Info) 0 each OTHER ONCE ONE Stop: 10/30/17 15:46 Nicotine (Habitrol 21 Mg Patch.24 Hr) 1 patch T-DERMAL DAILY [facility] Last Admin: 10/29/17 09:38 Dose: 1 patch Ondansetron HCl (Zofran Inj) 4 mg IV.PUSH Q6H PRN PRN Reason: NAUSEA OR VOMITING Oxycodone HCl (Roxicodone) 15 mg PO Q6H [facility] Last Admin: 10/29/17 17:09 Dose: 15 mg Pantoprazole Sodium (Protonix) 40 mg PO DAILY [facility] Last Admin: 10/29/17 09:38 Dose: 40 mg Patch Removal (Remove Old Patch) 0 each T-DERMAL DAILY [facility] Last Admin: 10/29/17 09:39 Dose: 1 each Pharmacy Profile Note (Vancomycin Consult Pharmacy) 1 each OTHER UNSCH PRN PRN Reason: Pharmacy to dose Pravastatin Sodium (Pravachol) 20 mg PO [facility] Last Admin: 10/28/17 20:42 Dose: 20 mg Pregabalin (Lyrica) 200 mg PO BID [facility] Last Admin: 10/29/17 09:40 Dose: 200 mg Senna/Docusate Sodium (Tyra-Colace) 1 tab PO BID [facility] Last Admin: 10/29/17 09:38 Dose: 1 tab Sennosides (Senokot) 17.2 mg PO Q12H PRN PRN Reason: Moderate Constipation Tizanidine HCl (Zanaflex) 2 mg PO BID [facility] Last Admin: 10/29/17 09:38 Dose: 2 mg Trazodone HCl (Desyrel) 150 mg PO [facility] Last Admin: 10/28/17 20:42 Dose: 150 mg Allergies Allergy/AdvReac Type Severity Reaction Status Date / Time quetiapine Allergy Unknown Psychosis Verified 10/11/17 10:14 *MDRO Multi-Drug Resistant AdvReac Unknown Chills Uncoded 10/11/17 10:14 Organism Home Medications Medication Instructions Recorded Confirmed Type clopidogrel 75 mg PO DAILY 10/11/17 10/27/17 History lisinopril 5 mg PO DAILY 10/11/17 10/27/17 History omeprazole 40 mg PO DAILY 10/11/17 10/27/17 History pregabalin [Lyrica] 200 mg PO BID 10/11/17 10/27/17 History simvastatin 10 mg PO QPM 10/11/17 10/27/17 History tizanidine 2 mg PO BID 10/11/17 10/27/17 History trazodone 150 mg PO HS 10/11/17 10/27/17 History aspirin 325 mg PO DAILY 10/27/17 10/27/17 History budesonide-formoterol [Symbicort] 2 puff INHALATION BID 10/27/17 10/27/17 History diazepam [Valium] 10 mg PO TID PRN 10/27/17 10/27/17 History fluticasone-salmeterol [Advair HFA] 2 puff INHALATION BID PRN 10/27/17 10/27/17 History insulin aspart U-100 [Novolog 15 unit SUB-Q TIDAC 10/27/17 10/27/17 History U-100 Insulin aspart] insulin glargine [Lantus U-100 50 unit SUB-Q HS 10/27/17 10/27/17 History Insulin] oxycodone 15 mg PO QID PRN 10/27/17 10/27/17 History Physical Exam Vital signs: Vital Signs 10/28/17 20:00 10/29/17 00:00 10/29/17 04:00 Temperature 98.5 F 98 F 98.3 F Pulse Rate 77 77 86 Respiratory Rate 20 14 18 Blood Pressure 142/66 H 126/72 127/76 Pulse Oximetry 96 99 99 10/29/17 08:00 10/29/17 12:00 Temperature 97.5 F L 97.2 F L Pulse Rate 73 85 Respiratory Rate 18 18 Blood Pressure 124/58 L 121/63 Pulse Oximetry 100 99 Intake & Output 10/28/17 10/29/17 10/29/17 18:59 06:59 18:59 Intake Total 858.5 / 858.5 585 / 585 Balance 858.5 / 858.5 585 / 585 Weight 72.7 kg Intake: IV 258.5 / 258.5 585 / 585 Vancomycin Inj 850 MG In NS Inj 258.5 / 258.5 585 / 585 250 ML @ 250 mls/hr IV.SIG Q8H [facility] Rx#:[id number] Oral 600 / 600 Other: # Voids 3 2 Date of Last Bowel Movement 10/28/17 Narrative: No apparent anxiety moist mucous membranes PERRLA skin without rash respirations nonlabored gait within normal limits digits warm well perfused Left dorsal hand with several centimeter in diameter sanguinous plaque This was unroofed with a gauze Very mild erythema surrounding the area Does not appear to be an infected active infection No discharge expressed Full active range of motion Sensation intact light touch distally Assessment and Plan - Assessment (1) Infection of hand Code(s): L08.9 - Local infection of the skin and subcutaneous tissue, unspecified Status: Acute - Plan 57-year-old male with left dorsal hand wound Scab unroofed No purulence expressed Do not appreciate anything surgical at this time Antibiotics per primary Please call with questions
[2017-10-29] MEDS: traZODone 50 MG Tablet PO SCH (21:29)
[2017-10-29] MEDS: Insulin Detemir Inj 1,000 UNIT/10 ML Vial SQ SCH (21:33)
[2017-10-30] MEDS: Vancomycin Inj 1,250 MG in Sodium Chlor 0.9% Inj 250 ML IV.SIG SCH ×2 (03:12→16:54)
[2017-10-30] MEDS: Heparin - SQ 10,000 UNITS/ML Vial SQ SCH ×2 (05:27→18:04)
[2017-10-30] MEDS: Insulin NovoLOG Aspart Correctional Sugar Inj SQ SCH ×4 (07:46→21:41)
[2017-10-30] MEDS: Senna/Docusate Sodium 8.6/50 MG Tablet PO SCH ×2 (09:03→21:40)
[2017-10-30] MEDS: Lisinopril 5 MG Tablet PO SCH (09:04)
[2017-10-30 11:14] LABS: Anion Gap 9 meq/L (5-15); Blood Urea Nitrogen 7 mg/dL (7-18); Calcium 8.6 mg/dL (8.5-10.1); Carbon Dioxide 29.5 meq/L (21.0-32.0); Chloride 101 meq/L (98-107); Glomerular Filtration Rate Greater Than 89 mL/min (>89); Glucose,Random 135 mg/dL (74-106); Potassium 4.3 meq/L (3.5-5.1); Sodium 139 meq/L (136-145)
--- NOTE | 2017-10-30 11:32 | P.PNFP ---
Subjective Interval history: Patient seen and examined this morning. He states that his swelling in his left forearm has improved; however, he is still unable to fully bend his fingers due to the swelling in his hand. He used some scissors to cut away the skin of his palm and tried to pop open the white area in his palm with blunt tweezers. No fevers/chills, no chest pain, no shortness of breath. His questions about the dosing of his Vancomycin were answered. <Blessing Pat G - 10/30/17 13:23> Results - Labs Result diagrams: 10/29/17 06:34 10/30/17 10:29 <DexterJorgeNargis M - 10/30/17 15:24> Abnormal lab results 10/29/17 10/29/17 10/30/17 Range/Units 16:56 20:30 10:29 Creatinine 0.57 L (0.60-1.30) mg/dL POC Glucose 205 H 161 H (68-110) mg/dl Random Glucose 135 H (74-106) mg/dL 10/30/17 Range/Units 12:19 Creatinine (0.60-1.30) mg/dL POC Glucose 179 H (68-110) mg/dl Random Glucose (74-106) mg/dL BMP 10/30/17 10:29 Sodium 139 Potassium 4.3 D Chloride 101 Carbon Dioxide 29.5 BUN 7 Creatinine 0.57 L Calcium 8.6 <Nargis Renteria - 10/30/17 15:24> Abnormal lab results 10/29/17 10/29/17 10/29/17 Range/Units 11:00 12:10 16:56 Creatinine 0.57 L (0.60-1.30) mg/dL POC Glucose 171 H 205 H (68-110) mg/dl Random Glucose 64 L (74-106) mg/dL Calcium 8.4 L (8.5-10.1) mg/dL Vancomycin Trough 25.6 H (5.0-10.0) mcg/mL 10/29/17 10/30/17 Range/Units 20:30 10:29 Creatinine 0.57 L (0.60-1.30) mg/dL POC Glucose 161 H (68-110) mg/dl Random Glucose 135 H (74-106) mg/dL Calcium (8.5-10.1) mg/dL Vancomycin Trough (5.0-10.0) mcg/mL BMP 10/29/17 10/30/17 11:00 10:29 Sodium 138 139 Potassium 3.5 4.3 D Chloride 102 101 Carbon Dioxide 27.2 29.5 BUN 8 7 Creatinine 0.57 L 0.57 L Calcium 8.4 L 8.6 <Blessing Pat G - 10/30/17 11:31> Physical Exam Vital signs: Vital Signs 10/29/17 16:00 10/29/17 20:00 10/29/17 23:25 Temperature 98.2 F 98.5 F 98.2 F Pulse Rate 72 75 76 Respiratory Rate 18 16 18 Blood Pressure 158/74 H 115/72 124/68 Pulse Oximetry 100 100 99 10/30/17 00:00 10/30/17 03:59 10/30/17 08:00 Temperature 97.9 F 97.8 F Pulse Rate 69 63 Respiratory Rate 18 16 18 Blood Pressure 119/71 108/55 L Pulse Oximetry 100 99 Intake & Output 10/29/17 10/30/17 10/30/17 18:59 06:59 18:59 Intake Total 982.5 / 982.5 265 / 265 Output Total 1000 / 1000 Balance -17.5 / -17.5 265 / 265 Weight 72.4 kg Intake: IV 262.5 / 262.5 265 / 265 Vancomycin Inj 1,250 MG In NS 262.5 / 262.5 265 / 265 Inj 250 ML @ 250 mls/hr IV.SIG Q12H [facility] Rx#:[id number] Oral 720 / 720 Output: Urine 1000 / 1000 Other: # Voids 2 Date of Last Bowel Movement 10/28/17 10/30/17 # Bowel Movements 1 <Nargis Renteria M - 10/30/17 15:24> Vital Signs 10/29/17 12:00 10/29/17 16:00 10/29/17 20:00 Temperature 97.2 F L 98.2 F 98.5 F Pulse Rate 85 72 75 Respiratory Rate 18 18 16 Blood Pressure 121/63 158/74 H 115/72 Pulse Oximetry 99 100 100 10/29/17 23:25 10/30/17 00:00 10/30/17 03:59 Temperature 98.2 F 97.9 F Pulse Rate 76 69 Respiratory Rate 18 18 16 Blood Pressure 124/68 119/71 Pulse Oximetry 99 100 10/30/17 08:00 Temperature 97.8 F Pulse Rate 63 Respiratory Rate 18 Blood Pressure 108/55 L Pulse Oximetry 99 Intake & Output 10/29/17 10/30/17 10/30/17 18:59 06:59 18:59 Intake Total 982.5 / 982.5 265 / 265 Output Total 1000 / 1000 Balance -17.5 / -17.5 265 / 265 Weight 72.4 kg Intake: IV 262.5 / 262.5 265 / 265 Vancomycin Inj 1,250 MG In NS 262.5 / 262.5 265 / 265 Inj 250 ML @ 250 mls/hr IV.SIG Q12H [facility] Rx#:[id number] Oral 720 / 720 Output: Urine 1000 / 1000 Other: # Voids 2 Date of Last Bowel Movement 10/28/17 # Bowel Movements 1 <Blessing Pat - 10/30/17 11:31> Narrative: GENERAL: white male sitting at edge of bed. In NAD. SKIN: Warm and dry. Scalp with lesions suspicious for skin cancer/ abrasions. HEAD: Normocephalic and atraumatic. EYES: No scleral icterus. No injection or drainage. ENT: No nasal drainage noted. Airway patent. CARDIOVASCULAR: Regular rate and rhythm without murmurs, gallops, or rubs. RESPIRATORY: Breath sounds equal bilaterally. No accessory muscle use. No wheezing/ rhonchi. ABDOMEN/GI: Abdomen soft, non-tender, bowel sounds present, no rebound, no guarding EXTREMITIES: No cyanosis or edema. L hand swollen, tight skin, edema noted from fingers to wrist. 4th digit with wounds in different stages of healing/ scabs. Palm with one main open abrasion, raw skin area of about 5cm by 4cm, with no drainage. Tender to palpation. Fingertips with white decoloration and delayed capillary refill, likely due to significant edema. Improved erythema. NEUROLOGICAL: Awake and alert. Motor and sensory grossly within normal limits. Normal speech. <Blessing Pat 10/30/17 13:23> Assessment and Plan - Assessment (1) Infection of hand Code(s): L08.9 - Local infection of the skin and subcutaneous tissue, unspecified Status: Acute (2) Insulin dependent diabetes mellitus Code(s): E11.9 - Type 2 diabetes mellitus without complications; Z79.4 - terminal computer operator (current) use of insulin Status: Chronic (3) Sciatic nerve pain Code(s): M54.30 - Sciatica, unspecified side Status: Chronic (4) Chronic pain Code(s): G89.29 - Other chronic pain Status: Chronic (5) Hypertension Code(s): I10 - Essential (primary) hypertension Status: Chronic (6) Anxiety Code(s): F41.9 - Anxiety disorder, unspecified Status: Chronic (7) Drug abuse Code(s): F19.10 - Other psychoactive substance abuse, uncomplicated Status: Acute (8) COPD (chronic obstructive pulmonary disease) Code(s): J44.9 - Chronic obstructive pulmonary disease, unspecified Status: Chronic (9) Hepatitis B Code(s): B19.10 - Unspecified viral hepatitis B without hepatic coma Status: Chronic (10) Hepatitis C infection Code(s): B19.20 - Unspecified viral hepatitis C without hepatic coma Status: Chronic (11) Nutrition, metabolism, and development symptoms Code(s): R63.8 - Other symptoms and signs concerning food and fluid intake Status: Acute (12) DVT prophylaxis Status: Acute <Narigs Renteria - 10/30/17 15:24> (1) Infection of hand Code(s): L08.9 - Local infection of the skin and subcutaneous tissue, unspecified Status: Acute Plan: Pt with L hand infection since 10/22. Failed outpatient treatment with Bactrim. + MRSA cultures. S/p IV vancomycin one dose in ED 1 gr. - Pt stable, does not meet sepsis/ sirs criteria at this moment - CT hand: Diffuse nonspecific soft tissue swelling and/or edema, No evidence of any loculated fluid collections to indicate a drainable abscess. - Continue IV Vancomycin (10/27- ) Pharmacy following and adjusting dose. Hand surgery consulted, appreciate recommendations. -Do not appreciate anything surgical at this time (2) Insulin dependent diabetes mellitus Code(s): E11.9 - Type 2 diabetes mellitus without complications; Z79.4 - FPC (current) use of insulin Status: Chronic Plan: Pt's medications confirmed with pharmacy NovoLog 15 U SQ before meals TID Lantus 50 U SQ HS Continue Lantus 50 U SQ HS Continue Low SS insulin Diabetic diet (3) Sciatic nerve pain Code(s): M54.30 - Sciatica, unspecified side Status: Chronic Plan: - Continue home medication: Lyrica 200 mg PO BID (4) Chronic pain Code(s): G89.29 - Other chronic pain Status: Chronic Plan: Pt in significant amount of pain medications at home. E-forced and verified with pharmacy. No irregularities found. Home medication: Oxycodone 15mg QID, lyrica 200mg BID, Trazadone 150mg qHS - Pain scale : [place] 5/325 for pain 1-3, [place] 10/325 for pain 6-10 q4 PRN - Continue home trazodone and Lyrica (5) Hypertension Code(s): I10 - Essential (primary) hypertension Status: Chronic Plan: BP within normal limits on admission - Continue home medication: lisinopril 5mg po daily (6) Anxiety Code(s): F41.9 - Anxiety disorder, unspecified Status: Chronic Plan: Pt with anxiety treated with Valium at home: 10 mg PO TID PRN -Continue home dose (7) Drug abuse Code(s): F19.10 - Other psychoactive substance abuse, uncomplicated Status: Acute Plan: Cocaine abuse (inhalation) night prior to admission - Pt denies other recreation drug use - Pt denies IV drug use - UDS Positive for Cocaine and Benzos (8) COPD (chronic obstructive pulmonary disease) Code(s): J44.9 - Chronic obstructive pulmonary disease, unspecified Status: Chronic Plan: Pt with normal lung exam. Well controlled with home medications. Currently smokes 1-2 pack day - Continue home inhalers Symbicort 80/4.5 MCG inhaler and Advair 45/21 2 puff BID. - Nicotine patch q 24 hrs (9) Hepatitis B Code(s): B19.10 - Unspecified viral hepatitis B without hepatic coma Status: Chronic Plan: Pt states he sees a GI doctor for this. No treatment indicated at this time. - States has never done IV drug use and likely contracted disease from unprotected sex. (10) Hepatitis C infection Code(s): B19.20 - Unspecified viral hepatitis C without hepatic coma Status: Chronic Plan: Pt states he sees a GI doctor for this. No treatment indicated at this time. - States has never done IV drug use and likely contracted disease from unprotected sex. (11) Nutrition, metabolism, and development symptoms Code(s): R63.8 - Other symptoms and signs concerning food and fluid intake Status: Acute Plan: Diet and fluids: Po intake, diabetic Electrolytes: Monitor and replace as needed Pain control: on pain scale Nausea: PRN Zofran 4mg IV PRN GI: continue home medication, pantoprazole 40mg PO daily (12) DVT prophylaxis Status: Acute Plan: Possible surgical procedure tomorrow - Heparin 5,000 U q12hrs - Encourage ambulation <Blessing Pat - 10/30/17 13:08> - Assessment and Plan 57 yr old male admitted to inpatient unit for antibiotic treatment for L hand cellulitis due to failing outpatient treatment with Bactrim for 6 days. MRSA + cultures. Clinically stable. Hand surgery consulted and following. <Blessing Pat - 10/30/17 13:23> Discussed Condition With: Dr. Renteria <Blessing Pat - 10/30/17 13:23> Discharge Planning: likely tomorrow if improvement of edema <Blessing Pat - 10/30/17 13:23> - Attending Attestation The exam, history, and the medical decision-making described in the above note were completed with the assistance of the resident physician. I reviewed and agree with the findings presented. I attest that I had a [id number] encounter with the patient on the same day, and personally performed and documented my assessment and findings in the medical record. Despite improvement he still has continued swelling in his hand and the most careful thing to do is give him a little more IV antibiotics. <Nargis Renteria - 10/30/17 15:24> <Blessing Pat G - Last Filed: 10/30/17 13:08> (4) Chronic pain Qualifiers: Chronic pain type: chronic pain syndrome Qualified Code(s): G89.4 - Chronic pain syndrome (5) Hypertension Qualifiers: Hypertension type: essential hypertension Qualified Code(s): I10 - Essential (primary) hypertension (8) COPD (chronic obstructive pulmonary disease) Qualifiers: COPD type: unspecified COPD Qualified Code(s): J44.9 - Chronic obstructive pulmonary disease, unspecified (9) Hepatitis B Qualifiers: Viral hepatitis chronicity: unspecified Hepatic coma status: without hepatic coma (10) Hepatitis C infection Qualifiers: Viral hepatitis chronicity: unspecified Hepatic coma status: without hepatic coma Qualified Code(s): B19.20 - Unspecified viral hepatitis C without hepatic coma <Nargis Renteria M - Last Filed: 10/30/17 15:24> (4) Chronic pain Qualifiers: Chronic pain type: chronic pain syndrome Qualified Code(s): G89.4 - Chronic pain syndrome (5) Hypertension Qualifiers: Hypertension type: essential hypertension Qualified Code(s): I10 - Essential (primary) hypertension (8) COPD (chronic obstructive pulmonary disease) Qualifiers: COPD type: unspecified COPD Qualified Code(s): J44.9 - Chronic obstructive pulmonary disease, unspecified (9) Hepatitis B Qualifiers: Viral hepatitis chronicity: unspecified Hepatic coma status: without hepatic coma (10) Hepatitis C infection Qualifiers: Viral hepatitis chronicity: unspecified Hepatic coma status: without hepatic coma Qualified Code(s): B19.20 - Unspecified viral hepatitis C without hepatic coma <Blessing Pat G - Last Filed: 10/30/17 13:08> (4) Chronic pain Qualifiers: Chronic pain type: chronic pain syndrome Qualified Code(s): G89.4 - Chronic pain syndrome (5) Hypertension Qualifiers: Hypertension type: essential hypertension Qualified Code(s): I10 - Essential (primary) hypertension (8) COPD (chronic obstructive pulmonary disease) Qualifiers: COPD type: unspecified COPD Qualified Code(s): J44.9 - Chronic obstructive pulmonary disease, unspecified (9) Hepatitis B Qualifiers: Viral hepatitis chronicity: unspecified Hepatic coma status: without hepatic coma (10) Hepatitis C infection Qualifiers: Viral hepatitis chronicity: unspecified Hepatic coma status: without hepatic coma Qualified Code(s): B19.20 - Unspecified viral hepatitis C without hepatic coma <Nargis Renteria - Last Filed: 10/30/17 15:24> (4) Chronic pain Qualifiers: Chronic pain type: chronic pain syndrome Qualified Code(s): G89.4 - Chronic pain syndrome (5) Hypertension Qualifiers: Hypertension type: essential hypertension Qualified Code(s): I10 - Essential (primary) hypertension (8) COPD (chronic obstructive pulmonary disease) Qualifiers: COPD type: unspecified COPD Qualified Code(s): J44.9 - Chronic obstructive pulmonary disease, unspecified (9) Hepatitis B Qualifiers: Viral hepatitis chronicity: unspecified Hepatic coma status: without hepatic coma (10) Hepatitis C infection Qualifiers: Viral hepatitis chronicity: unspecified Hepatic coma status: without hepatic coma Qualified Code(s): B19.20 - Unspecified viral hepatitis C without hepatic coma
[2017-10-30] MEDS ORDERED: Pharmacy Ordered Lab Info OTHER ONE (15:45)
[2017-10-30] MEDS: traZODone 50 MG Tablet PO SCH (21:39)
[2017-10-30] MEDS: Insulin Detemir Inj 1,000 UNIT/10 ML Vial SQ SCH (21:41)
[2017-10-31] MEDS: Loperamide 2 MG Capsule PO PRN ×2 (01:00→07:10)
[2017-10-31] MEDS: Vancomycin Inj 1,250 MG in Sodium Chlor 0.9% Inj 250 ML IV.SIG SCH ×2 (04:21→17:03)
[2017-10-31] MEDS: Heparin - SQ 10,000 UNITS/ML Vial SQ SCH ×2 (05:14→17:03)
[2017-10-31 05:52] LABS: Anion Gap 7 meq/L (5-15); Blood Urea Nitrogen 8 mg/dL (7-18); Calcium 8.6 mg/dL (8.5-10.1); Carbon Dioxide 30.2 meq/L (21.0-32.0); Chloride 104 meq/L (98-107); Glomerular Filtration Rate Greater Than 89 mL/min (>89); Glucose,Random 76 mg/dL (74-106); Potassium 3.9 meq/L (3.5-5.1); Sodium 141 meq/L (136-145)
[2017-10-31] MEDS: Insulin NovoLOG Aspart Correctional Sugar Inj SQ SCH ×3 (07:52→17:04)
[2017-10-31] MEDS: Senna/Docusate Sodium 8.6/50 MG Tablet PO SCH (08:49)
[2017-10-31] MEDS: Lisinopril 5 MG Tablet PO SCH (09:04)
[2017-10-31] MEDS: Lactobacillus Acidophilus/L. Spores Tablet PO SCH ×3 (09:04→17:03)
--- NOTE | 2017-10-31 16:06 | P.PNFP ---
Subjective Interval history: Pt seen and evaluated this morning. He is doing well and wants to go home. He states he got a sugar test needle from the nurses cart and has been working on getting his infection out of his hand. He denies fever, chills, shortness of breath, he states has been having diarrhea overnight, but his C.Diff was negative. He states his diarrhea is better today. <Daniela Schneider V - 10/31/17 16:05> Results - Labs Result diagrams: 10/29/17 06:34 10/31/17 04:40 <Carmela Kim 10/31/17 20:02> Abnormal lab results 10/30/17 10/31/17 10/31/17 Range/Units 20:08 04:40 12:49 Creatinine 0.46 L (0.60-1.30) mg/dL POC Glucose 182 H 117 H (68-110) mg/dl 10/31/17 Range/Units 16:37 Creatinine (0.60-1.30) mg/dL POC Glucose 157 H (68-110) mg/dl [facility] 10/31/17 04:40 Sodium 141 Potassium 3.9 Chloride 104 Carbon Dioxide 30.2 BUN 8 Creatinine 0.46 L Calcium 8.6 <Carmela Kim 10/31/17 20:02> Abnormal lab results 10/30/17 10/30/17 10/31/17 Range/Units 17:04 20:08 04:40 Creatinine 0.46 L (0.60-1.30) mg/dL POC Glucose 137 H 182 H (68-110) mg/dl 10/31/17 Range/Units 12:49 Creatinine (0.60-1.30) mg/dL POC Glucose 117 H (68-110) mg/dl [facility] 10/31/17 04:40 Sodium 141 Potassium 3.9 Chloride 104 Carbon Dioxide 30.2 BUN 8 Creatinine 0.46 L Calcium 8.6 <Daniela Schneider V - 10/31/17 16:05> Physical Exam Vital signs: Vital Signs 10/31/17 00:00 10/31/17 04:00 10/31/17 08:00 Temperature 97.9 F 97.4 F L 97.4 F L Pulse Rate 84 71 61 Respiratory Rate 16 18 16 Blood Pressure 117/71 100/57 L 113/65 Pulse Oximetry 97 96 98 08/27/18 12:00 10/31/17 16:00 Temperature 97.4 F L 97.5 F L Pulse Rate 90 84 Respiratory Rate 16 16 Blood Pressure 155/86 H 132/78 Pulse Oximetry 100 99 Intake & Output 10/31/17 10/31/17 11/01/17 06:59 18:59 06:59 Intake Total 742.5 / 742.5 1002.5 / 1002.5 Output Total 1100 / 1100 Balance -357.5 / -357.5 1002.5 / 1002.5 Weight 72.4 kg Intake: IV 262.5 / 262.5 262.5 / 262.5 Vancomycin Inj 1,250 MG In NS 262.5 / 262.5 262.5 / 262.5 Inj 250 ML @ 250 mls/hr IV.SIG Q12H VEENA Rx#:[id number] Oral 480 / 480 740 / 740 Output: Urine 1100 / 1100 Other: # Voids 4 Date of Last Bowel Movement 10/31/17 10/30/17 # Bowel Movements 11 0 <Carmela Kim - 10/31/17 20:02> Vital Signs 10/30/17 16:00 10/30/17 20:00 10/31/17 00:00 Temperature 97.6 F 99 F 97.9 F Pulse Rate 75 68 84 Respiratory Rate 18 20 16 Blood Pressure 129/63 125/73 117/71 Pulse Oximetry 97 96 97 10/31/17 04:00 10/31/17 08:00 10/31/17 12:00 Temperature 97.4 F L 97.4 F L 97.4 F L Pulse Rate 71 61 90 Respiratory Rate 18 16 16 Blood Pressure 100/57 L 113/65 155/86 H Pulse Oximetry 96 98 100 Intake & Output 10/30/17 10/31/17 10/31/17 18:59 06:59 18:59 Intake Total 982.5 / 982.5 742.5 / 742.5 380 / 380 Output Total 1100 / 1100 Balance 982.5 / 982.5 -357.5 / -357.5 380 / 380 Weight 72.4 kg Intake: IV 262.5 / 262.5 262.5 / 262.5 Vancomycin Inj 1,250 MG In NS 262.5 / 262.5 262.5 / 262.5 Inj 250 ML @ 250 mls/hr IV.SIG Q12H VEENA Rx#:[id number] Oral 720 / 720 480 / 480 380 / 380 Output: Urine 1100 / 1100 Other: # Voids 6 3 Date of Last Bowel Movement 10/30/17 10/31/17 10/30/17 # Bowel Movements 3 11 1 <Daniela Schneider V - 10/31/17 16:05> Narrative: GENERAL: white male sitting at edge of bed. In NAD. SKIN: Warm and dry. Scalp with lesions suspicious for skin cancer/ abrasions. HEAD: Normocephalic and atraumatic. EYES: No scleral icterus. No injection or drainage. ENT: No nasal drainage noted. Airway patent. CARDIOVASCULAR: Regular rate and rhythm without murmurs, gallops, or rubs. RESPIRATORY: Breath sounds equal bilaterally. No accessory muscle use. No wheezing/ rhonchi. ABDOMEN/GI: Abdomen soft, non-tender, bowel sounds present, no rebound, no guarding EXTREMITIES: No cyanosis or edema. L hand swollen, tight skin, edema noted from fingers to wrist. 4th digit with wounds in different stages of healing/ scabs. Palm with one main open abrasion, open skin area of about 5cm by 4cm, with no drainage. Improving, non tender to palpation. Fingertips with white decoloration and delayed capillary refill, improved edema, hand movement, and improved erythema. NEUROLOGICAL: Awake and alert. Motor and sensory grossly within normal limits. Normal speech. <Daniela Schneider V - 10/31/17 16:05> Assessment and Plan - Assessment (1) Infection of hand Code(s): L08.9 - Local infection of the skin and subcutaneous tissue, unspecified Status: Acute (2) Insulin dependent diabetes mellitus Code(s): E11.9 - Type 2 diabetes mellitus without complications; Z79.4 - long term (current) use of insulin Status: Chronic (3) Sciatic nerve pain Code(s): M54.30 - Sciatica, unspecified side Status: Chronic (4) Chronic pain Code(s): G89.29 - Other chronic pain Status: Chronic (5) Hypertension Code(s): I10 - Essential (primary) hypertension Status: Chronic (6) Anxiety Code(s): F41.9 - Anxiety disorder, unspecified Status: Chronic (7) Drug abuse Code(s): F19.10 - Other psychoactive substance abuse, uncomplicated Status: Acute (8) COPD (chronic obstructive pulmonary disease) Code(s): J44.9 - Chronic obstructive pulmonary disease, unspecified Status: Chronic (9) Hepatitis B Code(s): B19.10 - Unspecified viral hepatitis B without hepatic coma Status: Chronic (10) Hepatitis C infection Code(s): B19.20 - Unspecified viral hepatitis C without hepatic coma Status: Chronic (11) Nutrition, metabolism, and development symptoms Code(s): R63.8 - Other symptoms and signs concerning food and fluid intake Status: Acute (12) DVT prophylaxis Status: Acute <Carmela Kim - 10/31/17 20:02> (1) Infection of hand Code(s): L08.9 - Local infection of the skin and subcutaneous tissue, unspecified Status: Acute Plan: Pt with L hand infection since 10/22. Failed outpatient treatment with Bactrim. + MRSA cultures. S/p IV vancomycin one dose in ED 1 gr. - Pt stable, does not meet sepsis/ sirs criteria at this moment - CT hand: Diffuse nonspecific soft tissue swelling and/or edema, No evidence of any loculated fluid collections to indicate a drainable abscess. - Finish day 5 of IV Vancomycin (10/27- 10/31) Discharged home with a 9 day course of Bactrim and Doxycycline based on culture sensitivities. F/U with PCP upon discharge Pain medication: E-forced was checked and pt will receive a 3 day course of pain medications for acute pain only. (2) Insulin dependent diabetes mellitus Code(s): E11.9 - Type 2 diabetes mellitus without complications; Z79.4 - correction (current) use of insulin Status: Chronic Plan: Pt's medications confirmed with pharmacy NovoLog 15 U SQ before meals TID Lantus 50 U SQ HS Pt will be discharged home on his regular diabetic regimen. (3) Sciatic nerve pain Code(s): M54.30 - Sciatica, unspecified side Status: Chronic Plan: - Continue home medication: Lyrica 200 mg PO BID (4) Chronic pain Code(s): G89.29 - Other chronic pain Status: Chronic Plan: Pt in significant amount of pain medications at home. E-forced and verified with pharmacy. No irregularities found. Home medication: Oxycodone 15mg QID, lyrica 200mg BID, Trazadone 150mg qHS - Pain on discharge : [place] 5/325 for 3 days (5) Hypertension Code(s): I10 - Essential (primary) hypertension Status: Chronic Plan: BP within normal limits on admission Continue home medication: lisinopril 5mg po daily (6) Anxiety Code(s): F41.9 - Anxiety disorder, unspecified Status: Chronic Plan: Pt with anxiety treated with Valium at home: 10 mg PO TID PRN (7) Drug abuse Code(s): F19.10 - Other psychoactive substance abuse, uncomplicated Status: Acute Plan: Cocaine abuse (inhalation) night prior to admission - Pt denies other recreation drug use - Pt denies IV drug use - UDS Positive for Cocaine and Benzos - Pt counseled about cocaine and drug use, and was encouraged to quit. (8) COPD (chronic obstructive pulmonary disease) Code(s): J44.9 - Chronic obstructive pulmonary disease, unspecified Status: Chronic Plan: Pt with normal lung exam. Well controlled with home medications. Currently smokes 1-2 pack day - Continue home inhalers Symbicort 80/4.5 MCG inhaler and Advair 45/21 2 puff BID. - Nicotine patch q 24 hrs (9) Hepatitis B Code(s): B19.10 - Unspecified viral hepatitis B without hepatic coma Status: Chronic Plan: Pt states he sees a GI doctor for this. No treatment indicated at this time. - States has never done IV drug use and likely contracted disease from unprotected sex. (10) Hepatitis C infection Code(s): B19.20 - Unspecified viral hepatitis C without hepatic coma Status: Chronic Plan: Pt states he sees a GI doctor for this. No treatment indicated at this time. - States has never done IV drug use and likely contracted disease from unprotected sex. (11) Nutrition, metabolism, and development symptoms Code(s): R63.8 - Other symptoms and signs concerning food and fluid intake Status: Acute Plan: Diet and fluids: Po intake, diabetic Electrolytes: Monitor and replace as needed Pain control: on pain scale Nausea: PRN Zofran 4mg IV PRN GI: continue home medication, pantoprazole 40mg PO daily (12) DVT prophylaxis Status: Acute Plan: Possible surgical procedure tomorrow - Heparin 5,000 U q12hrs - Encourage ambulation <Caty PatelDaniela Mckeon - 10/31/17 15:54> - Assessment and Plan 57 yr old male admitted to inpatient unit for antibiotic treatment for L hand cellulitis due to failing outpatient treatment with Bactrim for 6 days. MRSA + cultures. Clinically stable. Pt received a 5 day course of IV vancomycin and will be discharged home on a 9 day course of Bactrim and Doxycycline based on culture's sensitivities. Hand surgery evaluated the patient and decided he did not need surgical intervention. <Daniela Schneider V - 10/31/17 16:05> - Attending Attestation Patient seen, examined, and discussed with resident team. I agree with assessment and management as documented and discussed with me. Pt feels swelling in hand is improved. He requests discharge today. Pt advised to not pick at his own wound. Pt advised to take antibiotics as prescribed. <Carmela Kim - 10/31/17 20:02> <Daniela Schneider V - Last Filed: 10/31/17 15:54> (4) Chronic pain Qualifiers: Chronic pain type: chronic pain syndrome Qualified Code(s): G89.4 - Chronic pain syndrome (5) Hypertension Qualifiers: Hypertension type: essential hypertension Qualified Code(s): I10 - Essential (primary) hypertension (8) COPD (chronic obstructive pulmonary disease) Qualifiers: COPD type: unspecified COPD Qualified Code(s): J44.9 - Chronic obstructive pulmonary disease, unspecified (9) Hepatitis B Qualifiers: Viral hepatitis chronicity: unspecified Hepatic coma status: without hepatic coma (10) Hepatitis C infection Qualifiers: Viral hepatitis chronicity: unspecified Hepatic coma status: without hepatic coma Qualified Code(s): B19.20 - Unspecified viral hepatitis C without hepatic coma <JudyCarmela - Last Filed: 10/31/17 20:02> (4) Chronic pain Qualifiers: Chronic pain type: chronic pain syndrome Qualified Code(s): G89.4 - Chronic pain syndrome (5) Hypertension Qualifiers: Hypertension type: essential hypertension Qualified Code(s): I10 - Essential (primary) hypertension (8) COPD (chronic obstructive pulmonary disease) Qualifiers: COPD type: unspecified COPD Qualified Code(s): J44.9 - Chronic obstructive pulmonary disease, unspecified (9) Hepatitis B Qualifiers: Viral hepatitis chronicity: unspecified Hepatic coma status: without hepatic coma (10) Hepatitis C infection Qualifiers: Viral hepatitis chronicity: unspecified Hepatic coma status: without hepatic coma Qualified Code(s): B19.20 - Unspecified viral hepatitis C without hepatic coma <Daniela Schneider V - Last Filed: 10/31/17 15:54> (4) Chronic pain Qualifiers: Chronic pain type: chronic pain syndrome Qualified Code(s): G89.4 - Chronic pain syndrome (5) Hypertension Qualifiers: Hypertension type: essential hypertension Qualified Code(s): I10 - Essential (primary) hypertension (8) COPD (chronic obstructive pulmonary disease) Qualifiers: COPD type: unspecified COPD Qualified Code(s): J44.9 - Chronic obstructive pulmonary disease, unspecified (9) Hepatitis B Qualifiers: Viral hepatitis chronicity: unspecified Hepatic coma status: without hepatic coma (10) Hepatitis C infection Qualifiers: Viral hepatitis chronicity: unspecified Hepatic coma status: without hepatic coma Qualified Code(s): B19.20 - Unspecified viral hepatitis C without hepatic coma <JudyCarmela - Last Filed: 10/31/17 20:02> (4) Chronic pain Qualifiers: Chronic pain type: chronic pain syndrome Qualified Code(s): G89.4 - Chronic pain syndrome (5) Hypertension Qualifiers: Hypertension type: essential hypertension Qualified Code(s): I10 - Essential (primary) hypertension (8) COPD (chronic obstructive pulmonary disease) Qualifiers: COPD type: unspecified COPD Qualified Code(s): J44.9 - Chronic obstructive pulmonary disease, unspecified (9) Hepatitis B Qualifiers: Viral hepatitis chronicity: unspecified Hepatic coma status: without hepatic coma (10) Hepatitis C infection Qualifiers: Viral hepatitis chronicity: unspecified Hepatic coma status: without hepatic coma Qualified Code(s): B19.20 - Unspecified viral hepatitis C without hepatic coma
--- NOTE | 2017-10-31 21:33 | P.DS ---
Date of admission: 10/27/17 15:43 Primary care physician: Brock Maurice DO Brief History from admission: 57 yr old male with a PMH of [place], COPD, Insulin dependent DM, and chronic pain, presenting to the ED for failing outpatient treatment of L hand cellulitis. Pt was in ED 5 days ago and was given Bactrim 800/160 mg, for cellulitis. Pt states he has been taking his antibiotics every day and has not missed a dose. Originally, the infection started on the dorsal side of his L hand, with what he thinks was a spider bite. Now, the cellulitis has spread significantly all over his hand, including hand swelling and pain. Pt describes the pain as a 10/ 10, shooting, starting in the middle of his hand, and radiating to his fingers. Cultures taken from wound on ED came back as MRSA +. A CT done of his hand did not show any abscess at that time. However today he has even more swelling and on the palmar aspect of his hand he appears to have the infection coming to a head. He actually drained his own wound on his finger and was trying to put pressure to drain his wound on his hand on the palmar aspect of his hand. However there was no drainage or pus coming out when we saw him. DS: Diagnosis - Discharge Diagnosis (1) Infection of hand Status: Acute (2) Insulin dependent diabetes mellitus Status: Chronic (3) Sciatic nerve pain Status: Chronic (4) Chronic pain Status: Chronic (5) Hypertension Status: Chronic (6) Anxiety Status: Chronic (7) Drug abuse Status: Acute (8) COPD (chronic obstructive pulmonary disease) Status: Chronic (9) Hepatitis B Status: Chronic (10) Hepatitis C infection Status: Chronic (11) Nutrition, metabolism, and development symptoms Status: Acute (12) DVT prophylaxis Status: Acute DS: Medications - Discharge Medications Prescriptions: doxycycline hyclate 100 mg PO Q12H #18 cap hydrocodone-acetaminophen 1 tab PO Q6H PRN #12 tab PRN Reason: Acute Pain sulfamethoxazole-trimethoprim [Bactrim DS] 1 tab PO BID 10 Days #18 tab DS: Summary Hospital Course: Patient is a 57-year-old male with a PMH of [place], COPD, insulin-dependent diabetes , chronic pain who presented to ED for failing outpatient treatment of left hand cellulitis. Before admission, patient had been seen on the ED 5 days prior and was given Bactrim 800/160 mg for cellulitis. At that moment wound cultures were obtained. Patient returned to the ED due to increased severity of left hand swelling, tightness, pain and pus draining. Cultures from his previous ED admission resulted to be MRSA positive, therefore patient was admitted to our inpatient unit and treated with IV vancomycin for 5 days. Hand surgery was consulted, a CT scan of his left hand was performed, there was no evidence of abscess or drainable areas. During his hospitalization, his hand improved every day. On day of discharge, patient was able to move his hand without assistance, swelling have decreased significantly, erythema had almost completely resolved, and there is still a wound area on the palmar side that is healing well. Also another ulcer on his ring finger on the dorsal side also in the process of healing. Due to significant improvement, and sensitivities of his culture, patient was discharged home in 9 day course of doxycycline 100 mg p.o. every 12 hours, as well as his original course of Bactrim. Patient was instructed to take antibiotic medicine until the end of the course, and follow- up with PCP. Patient was also given 3 days pain medicines for acute pain. During his hospitalization patient also admitted to the use of cocaine, and a positive UDS for cocaine and benzodiazepines. Patient was extensively counseled about the importance of stopping drug use, which he was not very amenable to. Patient was discharged home on a stable condition. - Time Spent with Patient Total time spent providing and/or coordinating discharge services: Less than 30 minutes - Quality: VTE Deep Vein Thrombosis/Pulmonary Embolism Present on Admission: No Exam Vital signs: Vital Signs 10/31/17 00:00 10/31/17 04:00 10/31/17 08:00 Temperature 97.9 F 97.4 F L 97.4 F L Pulse Rate 84 71 61 Respiratory Rate 16 18 16 Blood Pressure 117/71 100/57 L 113/65 Pulse Oximetry 97 96 98 10/31/17 12:00 10/31/17 16:00 Temperature 97.4 F L 97.5 F L Pulse Rate 90 84 Respiratory Rate 16 16 Blood Pressure 155/86 H 132/78 Pulse Oximetry 100 99 Intake & Output 10/31/17 10/31/17 11/01/17 06:59 18:59 06:59 Intake Total 742.5 / 742.5 1002.5 / 1002.5 Output Total 1100 / 1100 Balance -357.5 / -357.5 1002.5 / 1002.5 Weight 72.4 kg Intake: IV 262.5 / 262.5 262.5 / 262.5 Vancomycin Inj 1,250 MG In NS 262.5 / 262.5 262.5 / 262.5 Inj 250 ML @ 250 mls/hr IV.SIG Q12H VEENA Rx#:[id number] Oral 480 / 480 740 / 740 Output: Urine 1100 / 1100 Other: # Voids 4 Date of Last Bowel Movement 10/31/17 10/30/17 # Bowel Movements 11 0 Narrative: Narrative: GENERAL: white male sitting at edge of bed. In NAD. SKIN: Warm and dry. Scalp with lesions suspicious for skin cancer/ abrasions. HEAD: Normocephalic and atraumatic. EYES: No scleral icterus. No injection or drainage. ENT: No nasal drainage noted. Airway patent. CARDIOVASCULAR: Regular rate and rhythm without murmurs, gallops, or rubs. RESPIRATORY: Breath sounds equal bilaterally. No accessory muscle use. No wheezing/ rhonchi. ABDOMEN/GI: Abdomen soft, non-tender, bowel sounds present, no rebound, no guarding EXTREMITIES: No cyanosis or edema. L hand swollen, tight skin, edema noted from fingers to wrist. 4th digit with wounds in different stages of healing/ scabs. Palm with one main open abrasion, open skin area of about 5cm by 4cm, with no drainage, significantly improved since admission, non tender to palpation. Fingertips with white decoloration and delayed capillary refill, improved edema , hand movement, and improved erythema. NEUROLOGICAL: Awake and alert. Motor and sensory grossly within normal limits. Normal speech. Results Procedures completed during hospitalization: none Labs on day of discharge: Labs from last 24 hours 10/31/17 10/31/17 10/31/17 16:37 12:49 07:37 Sodium Potassium Chloride Carbon Dioxide Anion Gap BUN Creatinine Estimated GFR POC Glucose 157 H 117 H 81 Random Glucose Calcium Stl C.difficile Tox PCR St C. diff Tox Epid 027 10/31/17 10/30/17 04:40 21:30 Sodium 141 Potassium 3.9 Chloride 104 Carbon Dioxide 30.2 Anion Gap 7 BUN 8 Creatinine 0.46 L Estimated GFR Greater than 89 POC Glucose Random Glucose 76 Calcium 8.6 Stl C.difficile Tox PCR Negative St C. diff Tox Epid 027 Negative - Impressions ITS Impressions Hand CT 10/27/17 13:36 CONCLUSION: 1. Diffuse nonspecific soft tissue swelling and/or edema. Findings suggest diffuse cellulitis. 2. No evidence of any loculated fluid collections to indicate a drainable abscess. 3. The bony structures are grossly intact. Discharge Plan - Discharge Disposition Patient Disposition: 01 Discharge Home - Discharge Condition Condition: Stable - Discharge Order Discharge Orders: Discharge Order (Routine); Ordered 10/31/17 Ordered By: Hortensia Doshi - Discharge Details Anticipated Discharge Date: 10/31/17 - Physicians Team Primary Care Provider: Brock Maurice Attending Provider: Carmela Kim Other Providers: London Polo MD
[2017-11-01] MEDS ORDERED: Pharmacy Ordered Lab Info OTHER ONE (15:45)
== END 2017-10-31 19:10 | disposition home or self-care (01) ==
LOC: NEPD 09:01 → NEDA 15:43 → N04 20:27
PROVIDERS: ADMIT Family Medicine; ATTEND Family Medicine